=== PATIENT | male | born 1940 | race Caucasian/White ===

== ENCOUNTER → 2017-10-07 | Outpatient (CLI) | payer MEDICARE ==
[2017-10-07 10:33] LABS: INR 1.1 (<1.2); Partial Thromboplastin Time 23.5 sec (22.0-30.0); Prothrombin Time 10.9 sec (9.0-12.0)
== END | disposition home or self-care (01) ==
LOC: LABPAT 09:17
PROVIDERS: ATTEND Orthopaedic Surgery Sports Medicine
DX: Z01.812 Encounter for preprocedural laboratory examination (principal); M17.11 Unilateral primary osteoarthritis, right knee; Z79.01 Long term (current) use of anticoagulants
CPT/HCPCS: 36415; 85610; 85730; 87070

== ENCOUNTER 2018-04-26 09:17 | Emergency (ER) | payer MEDICARE ==
[2018-04-26 09:35] VITALS: BP 163/76; PULSE 55; RESP 16; TEMP 97.9
--- NOTE | 2018-04-26 10:00 | ED ---
General Adult HPI - General Chief complaint: Extremity Injury, Lower Stated complaint: Left Foot Injury Time Seen by Provider: 04/26/18 09:45 Source: patient, RN notes reviewed Mode of arrival: ambulatory Limitations: no limitations - History of Present Illness Initial comments: Patient 77-year-old male presented to the emergency room today with chief complaint of injury to left foot. He does admit that approximately a week ago he was bending some conduit using his foot. He states he noticed some pain afterwards. He states it seemed to improve. States partially for 5 days ago he was doing the same maneuver bending conduit and noticed pain again. He states has not improved over last for 5 days. Patient does not that he feels the pain when he walks on the lateral aspect of left foot. He denies any other injuries or complaints. Patient denies any recent fever, chills, shortness of breath, chest pain, back pain, abdominal pain, nausea or vomiting, numbness or tingling, or any other complaints. - Related Data Home Medications Medication Instructions Recorded Confirmed Thyroid,Pork [[place] Thyroid] 60 mg PO DAILY 12/11/14 10/27/17 amLODIPine [Norvasc] 5 mg PO HS 12/11/14 10/27/17 Cholecalciferol [Vitamin D3] 5,000 unit PO DAILY 02/05/15 10/27/17 Ubidecarenone [Co Q-10] 100 mg PO DAILY 02/05/15 10/27/17 Pitavastatin Calcium [Livalo] 2 mg PO HS 03/02/15 10/27/17 Multivitamin [Men's Multi-Vitamin] 1 tab PO BID 09/06/15 10/27/17 [place]-3 Fatty Acids/Fish Oil [Fish 1 cap PO DAILY 09/19/15 10/27/17 Oil 1,000 mg Softgel] Losartan Potassium [Cozaar] 100 mg PO DAILY 10/28/16 10/27/17 Nitroglycerin Sl Tabs [Nitrostat] 0.4 mg SUBLINGUAL Q5M PRN 10/28/16 10/27/17 Calcium Carbonate [Tums] 500 - 1,000 tab PO DAILY PRN 10/20/17 10/27/17 Isosorbide Mononitrate ER [Imdur] 30 mg PO DAILY 10/20/17 10/27/17 Previous Rx's Medication Instructions Recorded Aspirin 325 mg PO BID #120 tab 10/23/17 Sennosides-Docusate Sodium 1 tab PO BID #60 tablet 10/23/17 [Senokot-S] HYDROcodone/APAP 7.5-325MG [[place] 1 - 2 tab PO Q4-6H PRN #90 tab 10/25/17 7.5-325] Allergies Allergy/AdvReac Type Severity Reaction Status Date / Time No Known Allergies Allergy Verified 04/26/18 09:35 Review of Systems ROS Statement: Those systems with pertinent positive or pertinent negative responses have been documented in the HPI. ROS Other: All systems not noted in ROS Statement are negative. Past Medical History Past Medical History: Coronary Artery Disease (CAD), GERD/Reflux, Hyperlipidemia , Hypertension, Osteoarthritis (OA), Sleep Apnea/CPAP/BIPAP, Thyroid Disorder Additional Past Medical History / Comment(s): NO TX FOR SLEEP APNEA. OCC GERD R /T DIET; HX DIVERTICULITIS X1. shingles History of Any Multi-Drug Resistant Organisms: None Reported Past Surgical History: Appendectomy, Heart Catheterization With Stent, Orthopedic Surgery, Tonsillectomy Additional Past Surgical History / Comment(s): 09-14-15 total lt knee replacment. ACCORDING TO PATIENT, AFTER HIS LAST KNEE SURGERY, HE DID NOT FEEL WELL AFTER, WITHIN A WEEK OR TWO, HIS APPENDIX HAD RUPTURED AND HAD AN APPENDECTOMY (HAD COMPLICATIONS WITH VERY HIGH BLOOD PRESSURE DURING THIS ILLNESS. HEART CATH X2, STENT X1 EACH. RONY CTR, RONY CUBITAL TUNNEL RELEASE ELBOWS. RT KNEE SCOPE 2011. LT KNEE ARTHROSCOPIC 12/2014. RT ROTATOR CUFF 08/2014. Past Anesthesia/Blood Transfusion Reactions: No Reported Reaction, Motion Sickness Date of Last Stent Placement:: 2004 EST Past Psychological History: No Psychological Hx Reported Smoking Status: Former smoker Past Alcohol Use History: Rare Past Drug Use History: None Reported - Past Family History Mother Family Medical History: Coronary Artery Disease (CAD), Hyperlipidemia Additional Family Medical History / Comment(s): stents Father Family Medical History: Liver Disease Additional Family Medical History / Comment(s): etoh abuse General Exam - General Exam Comments Initial Comments: General: The patient is awake and alert, in no distress, and does not appear acutely ill. Neck: The neck is supple, there is no tenderness or JVD. Musculoskeletal: Patient has normal appearance of left foot no obvious deformity. Shows good range of motion. Mild tenderness in the ATFL area. No specific bony tenderness on exam. Sensations intact. Pedal pulses 2+. Neurological: A&O x 3. CN II-XII intact, There are no obvious motor or sensory deficits. Coordination appears grossly intact. Speech is normal. Skin: Skin is warm and dry and no rashes or lesions are noted. Psychiatric: Normal mood and affect. Limitations: no limitations Course Vital Signs 04/26/18 09:30 Temperature 97.9 F Pulse Rate 55 L Respiratory 16 Rate Blood Pressure 163/76 O2 Sat by Pulse 99 Oximetry Medical Decision Making - Medical Decision Making Patient's x-rays reviewed are negative for any acute fracture dislocation. Results were discussed with patient. Patient advised sprain at this time. Advised to ice elevate the affected area. Otherwise use Francesco wrap on up and moving around. Advised follow-up orthopedics over the next 2-5 days if symptoms are not improving for further evaluation. Disposition Clinical Impression: Ankle sprain Disposition: HOME SELF-CARE Instructions: Ankle Sprain (ED) Additional Instructions: Please use Francesco wrap when up and moving around as discussed. Please follow-up with orthopedic/family doctor in the next 2-5 days of symptoms have not improved. Please return to emergency room if the symptoms increase or worsen or for any other concerns. Is patient prescribed a controlled substance at d/c from ED?: No Referrals: Delonte Corbin MD [Primary Care Provider] - 1-2 days Time of Disposition: 10:47
--- NOTE | 2018-04-26 10:13 | XR ---
PROCEDURE: XR foot complete LT 3 views DATE AND TIME: 04/26/2018 10:07 AM REFERRING PHYSICIAN: Mc Vásquez CLINICAL INDICATION: PHH, Pain TECHNIQUE: Department protocol. COMPARISON: None FINDINGS: There is no fracture or malalignment. Scattered multifocal osteoarthritis changes are appreciated. The soft tissues are unremarkable for acute findings, although prominent atherosclerotic calcificatio ns are noted. IMPRESSION: NO ACUTE PROCESS.
--- NOTE | 2018-04-26 10:14 | XR ---
PROCEDURE: XR ankle complete LT 3 views DATE AND TIME: 04/26/2018 10:07 AM REFERRING PHYSICIAN: Mc Vásquez CLINICAL INDICATION: PHH, Pain TECHNIQUE: Department protocol. COMPARISON: None FINDINGS: There is no fracture or malalignment. The mortise is intact. Multifocal osteoarthritis changes are appreciated. The soft tissues are unremarkable, other than atherosclerotic calcifications. IMPRESSION: NO ACUTE PROCESS.
== END 2018-04-26 10:53 | disposition home or self-care (01) ==
LOC: EC 09:17
DX: S93.402A Sprain of unspecified ligament of left ankle, initial encounter (principal); E78.5 Hyperlipidemia, unspecified; I10 Essential (primary) hypertension; I25.10 Atherosclerotic heart disease of native coronary artery without angina pectoris; E07.9 Disorder of thyroid, unspecified; Z87.891 Personal history of nicotine dependence; Z79.899 Other long term (current) drug therapy; X50.1XXA Overexertion from prolonged static or awkward postures, initial encounter; Y93.89 Activity, other specified
CPT/HCPCS: 99283

== ENCOUNTER → 2018-09-10 | Outpatient (CLI) | payer MEDICARE ==
[2018-09-10 08:40] LABS: Basophils % (A) 1 %; Eosinophils # (A) 0.1 k/uL (0-0.7); Eosinophils % (A) 1 %; HCT 47.3 % (39.0-53.0); HGB 15.3 gm/dL (13.0-17.5); Lymphocytes # (A) 2.1 k/uL (1.0-4.8); Lymphocytes % (A) 34 %; MCH 30.2 pg (25.0-35.0); MCHC 32.3 g/dL (31.0-37.0); MCV 93.5 fL (80.0-100.0); Mean Platelet Volume 7.9; Monocytes # (A) 0.4 k/uL (0-1.0); Monocytes % (A) 6 %; Neutrophils # (A) 3.5 k/uL (1.3-7.7); Neutrophils % (A) 57 %; Platelet Count 178 k/uL (150-450); RBC 5.06 m/uL (4.30-5.90); RDW 12.8 % (11.5-15.5); WBC 6.2 k/uL (3.8-10.6)
[2018-09-10 15:57] LABS: LDL Cholesterol,Calculated 66.4 mg/dL (0.0-131.0); VLDL Calculation 10.6 mg/dL (5.00-40.00)
[2018-09-10 15:58] LABS: Albumin 4.6 g/dL (3.80-4.90); Albumin/Globulin Ratio 2.19 (1.20-2.10); Anion Gap 8.8 mmol/L (4.00-12.00); Calcium 9.2 mg/dL (8.7-10.3); Carbon Dioxide 23.2 mmol/L (21.6-31.8); Globulin 2.1 g/dL (2.1-3.7); Potassium 4.7 mmol/L (3.5-5.5); Total Bilirubin 0.4 mg/dL (0.2-1.2); Total Protein 6.7 g/dL (6.2-8.2)
[2018-09-10 16:05] LABS: Prostate Specific Antigen 1.1 ng/mL (0.0-6.5)
[2018-09-10 16:12] LABS: T4, Free (Free Thyroxine) 0.9 ng/dL (0.80-1.80)
== END | disposition home or self-care (01) ==
LOC: LABWHC1 07:06
PROVIDERS: ATTEND Internal Medicine Cardiovascular Disease
DX: I25.10 Atherosclerotic heart disease of native coronary artery without angina pectoris (principal); N40.0 Benign prostatic hyperplasia without lower urinary tract symptoms
CPT/HCPCS: 36415; 80053; 80061; 82550; 84153; 84439; 84443; 85025

== ENCOUNTER → 2018-12-09 | Outpatient (CLI) | payer MEDICARE ==
[2018-12-09 17:05] LABS: Albumin 4.4 g/dL (3.80-4.90); Albumin/Globulin Ratio 2.32 (1.20-2.10); Anion Gap 9.6 mmol/L (4.00-12.00); Calcium 8.8 mg/dL (8.7-10.3); Carbon Dioxide 24.4 mmol/L (21.6-31.8); Globulin 1.9 g/dL (1.6-3.3); Potassium 4.5 mmol/L (3.5-5.5); Total Bilirubin 0.6 mg/dL (0.3-1.2); Total Protein 6.3 g/dL (6.2-8.2)
== END ==
LOC: LABWHC1 07:47
PROVIDERS: ATTEND Internal Medicine Endocrinology, Diabetes & Metabolism
DX: E03.8 Other specified hypothyroidism (principal); R23.2 Flushing; R53.83 Other fatigue
CPT/HCPCS: 36415; 80053; 82024; 82533; 83002; 84403; 84443

== ENCOUNTER → 2019-03-12 | Outpatient (CLI) | payer MEDICARE ==
[2019-03-12 08:51] LABS: Basophils % (A) 1 %; Eosinophils # (A) 0.1 k/uL (0-0.7); Eosinophils % (A) 2 %; HCT 46.3 % (39.0-53.0); Lymphocytes # (A) 2.3 k/uL (1.0-4.8); Lymphocytes % (A) 44 %; MCH 29.4 pg (25.0-35.0); MCHC 32.5 g/dL (31.0-37.0); MCV 90.5 fL (80.0-100.0); Mean Platelet Volume 8.8; Monocytes # (A) 0.3 k/uL (0-1.0); Monocytes % (A) 6 %; Neutrophils # (A) 2.3 k/uL (1.3-7.7); Neutrophils % (A) 46 %; Platelet Count 193 k/uL (150-450); RBC 5.11 m/uL (4.30-5.90); RDW 13.5 % (11.5-15.5); WBC 5.1 k/uL (3.8-10.6)
[2019-03-12 17:42] LABS: Albumin 4.4 g/dL (3.80-4.90); Albumin/Globulin Ratio 2.44 (1.60-3.17); Anion Gap 8.2 mmol/L (4.00-12.00); Calcium 9.2 mg/dL (8.7-10.3); Carbon Dioxide 25.8 mmol/L (21.6-31.8); Globulin 1.8 g/dL (1.6-3.3); LDL Cholesterol,Calculated 60.6 mg/dL (0.0-131.0); Potassium 4.3 mmol/L (3.5-5.5); Total Bilirubin 0.5 mg/dL (0.2-1.2); Total Protein 6.2 g/dL (6.2-8.2); VLDL Calculation 10.4 mg/dL (5.00-40.00)
== END ==
LOC: LABWHC1 08:29
PROVIDERS: ATTEND Internal Medicine Endocrinology, Diabetes & Metabolism
DX: E03.8 Other specified hypothyroidism (principal); I25.10 Atherosclerotic heart disease of native coronary artery without angina pectoris
CPT/HCPCS: 36415; 80053; 80061; 84443; 85025

== ENCOUNTER 2019-03-22 06:57 | Day surgery (SDC) | payer MEDICARE ==
[2019-03-18 10:53] VITALS: BMI 24.9
[~2019-03-22 06:57] MED LIST: DEXAMETHASONE SOD PHOSPHATE 10 MG/ML 1 ML VIAL IV ONE; HEPARIN SODIUM,PORCINE 5,000 UNIT/ML 1 ML VIAL SQ ONE; LACTATED RINGERS 1,000 ML IV SCH; LIDOCAINE 1% 20 ML VIAL (10MG/ML) FOR IV START INTRADERMA PRN; MIDAZOLAM 2 MG/2 ML VIAL IV PRN; ONDANSETRON 4 MG/2 ML VIAL IVP ONE; Pre Op ABX Message 1 EACH MISC MISCELLANE ONE; fentaNYL (PF) 50 MCG/ML 2 ML AMP IV PRN
[2019-03-22 07:26] VITALS: RESP 16; TEMP 97.8
[2019-03-22] MEDS ORDERED: PROPOFOL 10 MG/ML 20 ML VIAL IV ONE (07:51)
[2019-03-22] MEDS ORDERED: KETAMINE 10 MG/ML 20 ML VIAL ONE (07:51)
[2019-03-22] MEDS ORDERED: MIDAZOLAM 2 MG/2 ML VIAL ONE (07:51)
--- NOTE | 2019-03-22 08:03 | P.GSHP ---
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 Patient underwent biopsy at Dr. Deleon's office. Patient presents today for wide local excision. Past Medical History Past Medical History: Coronary Artery Disease (CAD), Cancer, GERD/Reflux, Hyperlipidemia, Hypertension, Liver Disease, Osteoarthritis (OA), Sleep Apnea/CPAP/BIPAP, Thyroid Disorder Additional Past Medical History / Comment(s): NO TX FOR SLEEP APNEA. OCC GERD R/T DIET; HX DIVERTICULITIS X1. shingles, melanoma, hemorrhoids, hepatitis unknown type after [place]fist [place] History of Any Multi-Drug Resistant Organisms: None Reported Past Surgical History: Appendectomy, Heart Catheterization With Stent, Joint Replacement, Orthopedic Surgery, Tonsillectomy Additional Past Surgical History / Comment(s): total rony knee replacment. ACCORDING TO PATIENT, AFTER HIS LAST KNEE SURGERY, HE DID NOT FEEL WELL AFTER, WITHIN A WEEK OR TWO, HIS APPENDIX HAD RUPTURED AND HAD AN APPENDECTOMY (HAD COMPLICATIONS WITH VERY HIGH BLOOD PRESSURE DURING THIS ILLNESS. HEART CATH X2, STENT X1 EACH. RONY CTR, RONY CUBITAL TUNNEL RELEASE ELBOWS. RT KNEE SCOPE 2011. LT KNEE ARTHROSCOPIC 12/2014. RT ROTATOR CUFF 09/26/2014, trigger finger release-lt, hemorroid surgery x2, rony cataract surgery Past Anesthesia/Blood Transfusion Reactions: No Reported Reaction, Motion Sickness Date of Last Stent Placement:: 2004 EST Smoking Status: Former smoker - Past Family History Mother Family Medical History: Coronary Artery Disease (CAD), Hyperlipidemia Additional Family Medical History / Comment(s): heart stents, quadruple bypass,rony dry macular degeneration Father Family Medical History: Liver Disease Additional Family Medical History / Comment(s): etoh abuse Medications and Allergies Home Medications Medication Instructions Recorded Confirmed Type Thyroid,Pork [[place] Thyroid] 75 mg PO DAILY 12/11/14 03/22/19 History amLODIPine [Norvasc] 5 mg PO HS 12/11/14 03/22/19 History Cholecalciferol [Vitamin D3 (25 5,000 unit PO DAILY 02/05/15 03/22/19 History Mcg = 1000 Iu)] Ubidecarenone [Co Q-10] 100 mg PO DAILY 02/05/15 03/22/19 History [place]-3 Fatty Acids/Fish Oil [Fish 1 cap PO DAILY 09/19/15 03/22/19 History Oil 1,000 mg Softgel] Losartan Potassium [Cozaar] 100 mg PO DAILY 10/28/16 03/22/19 History Nitroglycerin Sl Tabs [Nitrostat] 0.4 mg SUBLINGUAL Q5M PRN 10/28/16 03/22/19 History Calcium Carbonate [Tums] 500 - 1,000 tab PO DAILY PRN 10/20/17 03/22/19 History Isosorbide Mononitrate ER [Imdur] 30 mg PO DAILY 10/20/17 03/22/19 History Aspirin [Adult Low Dose Aspirin EC] 81 mg PO DAILY 03/18/19 03/22/19 History Metabolic Synergy 1 tab PO DAILY 03/18/19 03/22/19 History Allergies Allergy/AdvReac Type Severity Reaction Status Date / Time No Known Allergies Allergy Verified 03/18/19 10:25 Surgical - Exam Vital Signs Temp Pulse Resp BP Pulse Ox 97.8 F 61 16 202/99 97 03/22/19 07:20 03/22/19 07:20 03/22/19 07:20 03/22/19 07:20 03/22/19 07:20 - General well developed, well nourished, no distress - Eyes PERRL - ENT normal pinna - Neck no masses - Respiratory normal expansion - Cardiovascular Rhythm: regular - Integumentary 5 mm erythematous skin lesion on the right upper back just to the right of midline. Assessment and Plan Assessment: Melanoma. Patient will undergo wide local excision. Patient did not wish to explore the possibility of sentinel node biopsy.
[2019-03-22] MEDS ORDERED: SODIUM CHLORIDE 0.9% 50 ML with ceFAZolin 2,000 MG IV ONE ×2 (08:13)
[2019-03-22] MEDS ORDERED: BUPIVACAINE-EPI 0.5%-1:200,000 10 ML VIAL SQ ONE ×2 (08:14)
--- NOTE | 2019-03-22 08:36 | P.OP ---
Date of Procedure: 03/22/19 Preoperative Diagnosis: Melanoma of back Postoperative Diagnosis: Melanoma back Procedure(s) Performed: Wide local excision of melanoma back Anesthesia: MAC Surgeon: Kavon Saavedra Estimated Blood Loss (ml): 5 Pathology: other (Melanoma) Condition: stable Disposition: PACU Description of Procedure: The patient's placed on the operative table in the lateral position. He received IV sedation. The melanoma biopsy site was prepped and draped usual sterile fashion. The skin was localized 1% local Xylocaine. The patient received IV sedation. A wide local excision around the melanoma site was performed. Using a 15 blade the wide local vertical skin incision was made. Then using with cautery the subcutaneous tissues were divided. The specimen was marked with a suture tag placed on the superior corner of the elliptical incision. The posterior hemostasis. The wound was closed in 2 layers using 0 Vicryl and 3-0 Monocryl suture. Dermabond dressings was applied. Patient top she will was sent to recovery in stable condition.
[2019-03-22 08:38] VITALS: BP 133/66; PULSE 60
== END 2019-03-22 09:24 | disposition home or self-care (01) ==
LOC: OR 06:57
PROVIDERS: ATTEND Surgery
DX: C43.59 Malignant melanoma of other part of trunk (principal); E07.9 Disorder of thyroid, unspecified; E78.5 Hyperlipidemia, unspecified; I10 Essential (primary) hypertension; I25.10 Atherosclerotic heart disease of native coronary artery without angina pectoris; K21.9 Gastro-esophageal reflux disease without esophagitis; M19.90 Unspecified osteoarthritis, unspecified site; Z79.82 Long term (current) use of aspirin; Z79.899 Other long term (current) drug therapy; Z82.49 Family history of ischemic heart disease and other diseases of the circulatory system; Z87.891 Personal history of nicotine dependence; G47.30 Sleep apnea, unspecified; Z99.89 Dependence on other enabling machines and devices; Z95.5 Presence of coronary angioplasty implant and graft; Z96.653 Presence of artificial knee joint, bilateral
CPT/HCPCS: 88305; 11604; 12032; J2250; J1644; J1100; J2405; J0690; J2704

== ENCOUNTER → 2019-05-07 | Outpatient (CLI) | payer MEDICARE | END | disposition home or self-care (01) | LOC: LABWHC1 08:14 | PROVIDERS: ATTEND Internal Medicine Endocrinology, Diabetes & Metabolism | DX: E03.8 Other specified hypothyroidism (principal) | CPT/HCPCS: 36415; 84443 ==

== ENCOUNTER → 2019-08-02 | Outpatient (CLI) | payer MEDICARE | END | disposition home or self-care (01) | LOC: LABWHC1 15:23 | PROVIDERS: ATTEND Internal Medicine Endocrinology, Diabetes & Metabolism | DX: E03.8 Other specified hypothyroidism (principal) | CPT/HCPCS: 36415; 84443 ==

== ENCOUNTER → 2019-09-15 | Outpatient (CLI) | payer MEDICARE ==
[2019-09-15 11:17] LABS: Basophils % (A) 1 %; Eosinophils % (A) 1 %; HCT 45.6 % (39.0-53.0); HGB 14.8 gm/dL (13.0-17.5); Lymphocytes # (A) 1.5 k/uL (1.0-4.8); Lymphocytes % (A) 26 %; MCH 30.1 pg (25.0-35.0); MCHC 32.5 g/dL (31.0-37.0); MCV 92.8 fL (80.0-100.0); Monocytes # (A) 0.4 k/uL (0-1.0); Monocytes % (A) 7 %; Neutrophils # (A) 3.5 k/uL (1.3-7.7); Neutrophils % (A) 63 %; Platelet Count 207 k/uL (150-450); RBC 4.92 m/uL (4.30-5.90); RDW 12.7 % (11.5-15.5); WBC 5.5 k/uL (3.8-10.6)
[2019-09-15 16:10] LABS: African American GFR (CKD) 99.9 (60.0-200.0); Albumin 4.5 g/dL (3.80-4.90); Albumin/Globulin Ratio 2.37 (1.60-3.17); Anion Gap 5.7 mmol/L (4.00-12.00); BUN/Creat Ratio 28.75 Ratio (12.00-20.00); Calcium 9.1 mg/dL (8.7-10.3); Carbon Dioxide 25.3 mmol/L (21.6-31.8); Chol/HDL Ratio 2.06; Globulin 1.9 g/dL (1.6-3.3); Potassium 4.5 mmol/L (3.5-5.5); Total Bilirubin 0.5 mg/dL (0.3-1.2); Total Protein 6.4 g/dL (6.2-8.2)
== END | disposition home or self-care (01) ==
LOC: LABWHC1 09:58
PROVIDERS: ATTEND Internal Medicine Cardiovascular Disease
DX: E78.5 Hyperlipidemia, unspecified (principal); Z12.5 Encounter for screening for malignant neoplasm of prostate
CPT/HCPCS: 80061; 80053; 84443; 85025; 36415; G0103

== ENCOUNTER → 2019-11-24 | Outpatient (CLI) | payer MEDICARE | END | disposition home or self-care (01) | LOC: LABWHC1 07:08 | PROVIDERS: ATTEND Internal Medicine Endocrinology, Diabetes & Metabolism | DX: E03.8 Other specified hypothyroidism (principal) | CPT/HCPCS: 36415; 84443 ==

== ENCOUNTER 2019-11-30 10:46 | Observation (INO) | payer MEDICARE ==
[2019-11-30] MEDS ORDERED: ASPIRIN 81 MG PO STA (11:20)
[2019-11-30] MEDS ORDERED: NITROGLYCERIN OINT 1 INCH/GM PACKET TOPICAL STA (11:20)
--- NOTE | 2019-11-30 11:29 | ED ---
General Adult HPI - General Chief complaint: Chest Pain Stated complaint: Syncope/chest pain Time Seen by Provider: 11/30/19 11:06 Source: patient, RN notes reviewed, old records reviewed Mode of arrival: wheelchair Limitations: no limitations - History of Present Illness Initial comments: 79-year-old male who presents emergency Department with a past medical history significant for high blood pressure and high cholesterol. Patient also states he had a couple stents placed about 1520 years ago. Patient comes in today because he has been experiencing some chest pain over the last month that typically comes and feels like discomfort in her chest and then dissipates. Patient states today at 5:00 he had significant discomfort and he took a nitrog lycerin. Patient states it occurred twice more during the day and he took 2 more nitroglycerin. Patient states the last nitro glycerin took he walked out to his truck felt lightheaded and according to his coworker he passed out for a few seconds. Patient denies any chest pain. Patient denies radiation of the pain. Patient denies any nausea. Patient states currently he has still some discomfort but it's much less. Patient denies any shortness of breath currently. Patient denies any recent fever chills or cough per patient states went to lift calf tenderness. Patient denies any lightheadedness currently. Patient denies any headache patient denies numbness weakness. - Related Data Home Medications Medication Instructions Recorded Confirmed amLODIPine [Norvasc] 5 mg PO HS 12/11/14 11/30/19 Cholecalciferol [Vitamin D3 (25 5,000 unit PO DAILY 02/05/15 11/30/19 Mcg = 1000 Iu)] Ubidecarenone [Co Q-10] 100 mg PO DAILY 02/05/15 11/30/19 [place]-3 Fatty Acids/Fish Oil [Fish 1 cap PO DAILY 09/19/15 11/30/19 Oil 1,000 mg Softgel] Losartan Potassium [Cozaar] 100 mg PO DAILY 10/28/16 11/30/19 Nitroglycerin Sl Tabs [Nitrostat] 0.4 mg SUBLINGUAL Q5M PRN 10/28/16 11/30/19 Calcium Carbonate [Tums] 500 - 1,000 tab PO DAILY PRN 10/20/17 11/30/19 Isosorbide Mononitrate ER [Imdur] 30 mg PO DAILY 10/20/17 11/30/19 Aspirin [Adult Low Dose Aspirin EC] 81 mg PO BID 03/18/19 11/30/19 Metabolic Synergy 1 tab PO DAILY 03/18/19 11/30/19 Levothyroxine Sodium [Synthroid] 112 mcg PO DAILY 11/30/19 11/30/19 Pitavastatin Calcium [Livalo] 4 mg PO HS 11/30/19 11/30/19 Allergies Allergy/AdvReac Type Severity Reaction Status Date / Time No Known Allergies Allergy Verified 11/30/19 12:23 Review of Systems ROS Statement: Those systems with pertinent positive or pertinent negative responses have been documented in the HPI. ROS Other: All systems not noted in ROS Statement are negative. Past Medical History Past Medical History: Coronary Artery Disease (CAD), Chest Pain / Angina, GERD/Reflux, Hyperlipidemia, Hypertension, Osteoarthritis (OA), Sleep Apnea/CPAP/BIPAP, Thyroid Disorder Additional Past Medical History / Comment(s): NO TX FOR SLEEP APNEA. OCC GERD R/T DIET; HX DIVERTICULITIS X1. shingles History of Any Multi-Drug Resistant Organisms: None Reported Past Surgical History: Appendectomy, Heart Catheterization With Stent, Orthopedic Surgery, Tonsillectomy Additional Past Surgical History / Comment(s): 09-14-15 total lt knee replacment. ACCORDING TO PATIENT, AFTER HIS LAST KNEE SURGERY, HE DID NOT FEEL WELL AFTER, WITHIN A WEEK OR TWO, HIS APPENDIX HAD RUPTURED AND HAD AN APPENDECTOMY (HAD COMPLICATIONS WITH VERY HIGH BLOOD PRESSURE DURING THIS ILLNESS. HEART CATH X2, STENT X1 EACH. RONY CTR, RONY CUBITAL TUNNEL RELEASE ELBOWS. RT KNEE SCOPE 2011. LT KNEE ARTHROSCOPIC 12/2014. RT ROTATOR CUFF 09/26/2014. Past Anesthesia/Blood Transfusion Reactions: No Reported Reaction, Motion Sickness Date of Last Stent Placement:: 2004 EST Past Psychological History: No Psychological Hx Reported Smoking Status: Former smoker Past Alcohol Use History: None Reported Past Drug Use History: None Reported - Past Family History Mother Family Medical History: Coronary Artery Disease (CAD), Hyperlipidemia Additional Family Medical History / Comment(s): heart stents, quadruple bypass,rony dry macular degeneration Father Family Medical History: Liver Disease Additional Family Medical History / Comment(s): etoh abuse General Exam - General Exam Comments Initial Comments: GENERAL: Patient is well-developed and well-nourished. Patient is nontoxic and well- hydrated and is in mild distress. ENT: Neck is soft and supple. No significant lymphadenopathy is noted. Oropharynx is clear. Moist mucous membranes. Neck has full range of motion without eliciting any pain. EYES: The sclera were anicteric and conjunctiva were pink and moist. Extraocular movements were intact and pupils were equal round and reactive to light. Eyelids were unremarkable. PULMONARY: Unlabored respirations. Good breath sounds bilaterally. No audible rales rhonchi or wheezing was noted. CARDIOVASCULAR: There is a regular rate and rhythm without any murmurs gallops or rubs. ABDOMEN: Soft and nontender with normal bowel sounds. SKIN: Skin is clear with no lesions or rashes and otherwise unremarkable. NEUROLOGIC: Patient is alert and oriented x3. Cranial nerves II through XII are grossly intact. Motor and sensory are also intact. Normal speech, volume and content. Symmetrical smile. MUSCULOSKELETAL: Normal extremities with adequate strength and full range of motion. No lower extremity swelling or edema. No calf tenderness. LYMPHATICS: No significant lymphadenopathy is noted PSYCHIATRIC: Normal psychiatric evaluation. Limitations: no limitations Course Vital Signs 11/30/19 11/30/19 11/30/19 10:49 11:30 12:00 Temperature 97.6 F Pulse Rate 53 L 52 L 53 L Respiratory 18 12 10 L Rate Blood Pressure 163/75 159/77 139/84 O2 Sat by Pulse 99 99 97 Oximetry Medical Decision Making - Medical Decision Making EKG shows sinus bradycardia 56 bpm MN interval 220 QRS is 84 Q-T intervals 440 QTC is 424. Patient's EKG shows no ST segment elevation or depression or T wave abnormalities are noted. Chest x-ray showed no acute abnormality. I started the patient heparin because he unstable angina. I spoke with Dr. Corbin he agreed to admit the patient admitted the patient I consult cardiology. I continued heparin Nitropaste before. - Lab Data Result diagrams: 11/30/19 11:29 11/30/19 11:29 Lab Results 11/30/19 11/30/19 11/30/19 Range/Units 11:29 11:29 11:29 WBC 8.0 (3.8-10.6) k/uL RBC 4.84 (4.30-5.90) m/uL Hgb 14.4 (13.0-17.5) gm/dL Hct 44.4 (39.0-53.0) % MCV 91.8 (80.0-100.0) fL MCH 29.8 (25.0-35.0) pg MCHC 32.5 (31.0-37.0) g/dL RDW 12.4 (11.5-15.5) % Plt Count 163 (150-450) k/uL Neutrophils % 76 % Lymphocytes % 16 % Monocytes % 5 % Eosinophils % 1 % Basophils % 1 % Neutrophils # 6.1 (1.3-7.7) k/uL Lymphocytes # 1.3 (1.0-4.8) k/uL Monocytes # 0.4 (0-1.0) k/uL Eosinophils # 0.1 (0-0.7) k/uL Basophils # 0.1 (0-0.2) k/uL PT 10.6 (9.0-12.0) sec INR 1.0 (<1.2) APTT 20.2 L (22.0-30.0) sec Sodium 138 (137-145) mmol/L Potassium 4.1 (3.5-5.1) mmol/L Chloride 107 (98-107) mmol/L Carbon Dioxide 24 (22-30) mmol/L Anion Gap 7 mmol/L BUN 24 H (9-20) mg/dL Creatinine 0.89 (0.66-1.25) mg/dL Est GFR (CKD-EPI)AfAm >90 (>60 ml/min/1.73 sqM) Est GFR (CKD-EPI)NonAf 83 (>60 ml/min/1.73 sqM) Glucose 110 H (74-99) mg/dL Calcium 9.2 (8.4-10.2) mg/dL Total Bilirubin 0.5 (0.2-1.3) mg/dL AST 33 (17-59) U/L ALT 27 (4-49) U/L Alkaline Phosphatase 67 (38-126) U/L Troponin I (0.000-0.034) ng/mL Total Protein 7.2 (6.3-8.2) g/dL Albumin 4.4 (3.5-5.0) g/dL 11/30/19 Range/Units 11:29 WBC (3.8-10.6) k/uL RBC (4.30-5.90) m/uL Hgb (13.0-17.5) gm/dL Hct (39.0-53.0) % MCV (80.0-100.0) fL MCH (25.0-35.0) pg MCHC (31.0-37.0) g/dL RDW (11.5-15.5) % Plt Count (150-450) k/uL Neutrophils % % Lymphocytes % % Monocytes % % Eosinophils % % Basophils % % Neutrophils # (1.3-7.7) k/uL Lymphocytes # (1.0-4.8) k/uL Monocytes # (0-1.0) k/uL Eosinophils # (0-0.7) k/uL Basophils # (0-0.2) k/uL PT (9.0-12.0) sec INR (<1.2) APTT (22.0-30.0) sec Sodium (137-145) mmol/L Potassium (3.5-5.1) mmol/L Chloride (98-107) mmol/L Carbon Dioxide (22-30) mmol/L Anion Gap mmol/L BUN (9-20) mg/dL Creatinine (0.66-1.25) mg/dL Est GFR (CKD-EPI)AfAm (>60 ml/min/1.73 sqM) Est GFR (CKD-EPI)NonAf (>60 ml/min/1.73 sqM) Glucose (74-99) mg/dL Calcium (8.4-10.2) mg/dL Total Bilirubin (0.2-1.3) mg/dL AST (17-59) U/L ALT (4-49) U/L Alkaline Phosphatase (38-126) U/L Troponin I <0.012 (0.000-0.034) ng/mL Total Protein (6.3-8.2) g/dL Albumin (3.5-5.0) g/dL Critical Care Time Critical Care Time: Yes Total Critical Care Time: 35 Disposition Clinical Impression: Unstable angina pectoris Disposition: ADMITTED IP TO THIS [facility] Is patient prescribed a controlled substance at d/c from ED?: No Referrals: Delonte Corbin MD [Primary Care Provider] - 1-2 days Time of Disposition: 13:31
[2019-11-30 11:46] LABS: Basophils # (A) 0.1 k/uL (0-0.2); Basophils % (A) 1 %; Eosinophils # (A) 0.1 k/uL (0-0.7); Eosinophils % (A) 1 %; HCT 44.4 % (39.0-53.0); HGB 14.4 gm/dL (13.0-17.5); Lymphocytes # (A) 1.3 k/uL (1.0-4.8); Lymphocytes % (A) 16 %; MCH 29.8 pg (25.0-35.0); MCHC 32.5 g/dL (31.0-37.0); MCV 91.8 fL (80.0-100.0); Mean Platelet Volume 9.7; Monocytes # (A) 0.4 k/uL (0-1.0); Monocytes % (A) 5 %; Neutrophils # (A) 6.1 k/uL (1.3-7.7); Neutrophils % (A) 76 %; Platelet Count 163 k/uL (150-450); RBC 4.84 m/uL (4.30-5.90); RDW 12.4 % (11.5-15.5)
[2019-11-30 11:50] LABS: ALT 27 U/L (4-49); AST 33 U/L (17-59); African American GFR (CKD) >90 (>60 ml/min/1.73 sqM); Albumin 4.4 g/dL (3.5-5.0); Alkaline Phosphatase 67 U/L (38-126); Anion Gap 7 mmol/L; Blood Urea Nitrogen 24 mg/dL (9-20); Calcium 9.2 mg/dL (8.4-10.2); Carbon Dioxide 24 mmol/L (22-30); Chloride 107 mmol/L (98-107); Glucose 110 mg/dL (74-99); Non-African American GFR(CKD) 83 (>60 ml/min/1.73 sqM); Potassium 4.1 mmol/L (3.5-5.1); Sodium 138 mmol/L (137-145); Total Bilirubin 0.5 mg/dL (0.2-1.3); Total Protein 7.2 g/dL (6.3-8.2)
--- NOTE | 2019-11-30 12:00 | XR ---
EXAMINATION TYPE: XR chest 2V DATE OF EXAM: 11/30/2019 COMPARISON: 10/27/2017 HISTORY: Difficulty breathing and chest pain TECHNIQUE: Frontal and lateral views of the chest are obtained. FINDINGS: There is no focal air space opacity, pleural effusion, or pneumothorax seen. Some flatten ing of the diaphragms on the lateral view. Correlate for underlying COPD. The cardiac silhouette size is within normal limits. The osseous structures are intact. Moderate multilevel degenerative marcum e of the spine. Arthropathy of the right shoulder is present. IMPRESSION: No acute cardiopulmonary process. Some flattening of diaphragms on the lateral view can be seen in underlying COPD.
[2019-11-30 12:07] LABS: Prothrombin Time 10.6 sec (9.0-12.0)
[2019-11-30 12:10] LABS: Partial Thromboplastin Time 20.2 sec (22.0-30.0)
[2019-11-30] MEDS ORDERED: HEPARIN SODIUM,PORCINE 5,000 UNIT/ML 1 ML VIAL IV ONE (13:09)
[2019-11-30] MEDS ORDERED: HEPARIN SOD,PORK IN 0.45% NACL 25,000 UNIT in 0.45% NACL 1 250ML.BAG IV SCH (13:15)
[2019-11-30] MEDS ORDERED: NITROGLYCERIN SL TABS 0.4 MG TAB SUBLINGUAL PRN (13:31)
[2019-11-30] MEDS ORDERED: CALCIUM CARBONATE 500 MG CHEWABLE PO PRN (16:54)
[2019-11-30] MEDS ORDERED: ACETAMINOPHEN TAB 325 MG TAB PO PRN (17:03)
--- NOTE | 2019-11-30 17:25 | P.HPIM ---
History of Present Illness 79-year-old male is intermittent chest pain for 1 month worse today. Patient had syncopal episode after using nitroglycerin. Patient does have history of coronary disease with stent sees Dr. Smiley 8 and sink or shortness. Patient also has history of hypertension and hyperlipidemia. Patient states he's been under a lot of family stress for 6 months Review of Systems Cardiovascular: Reports chest pain Neurological: Reports syncope Past Medical History Past Medical History: Coronary Artery Disease (CAD), Chest Pain / Angina, GERD/Reflux, Hyperlipidemia, Hypertension, Osteoarthritis (OA), Sleep Apnea/CPAP/BIPAP, Thyroid Disorder Additional Past Medical History / Comment(s): NO TX FOR SLEEP APNEA. OCC GERD R/T DIET; HX DIVERTICULITIS X1. shingles, hypothyroid History of Any Multi-Drug Resistant Organisms: None Reported Past Surgical History: Appendectomy, Heart Catheterization With Stent, Orthopedic Surgery, Tonsillectomy Additional Past Surgical History / Comment(s): 09-14-15 total lt knee replacment. ACCORDING TO PATIENT, AFTER HIS LAST KNEE SURGERY, HE DID NOT FEEL WELL AFTER, WITHIN A WEEK OR TWO, HIS APPENDIX HAD RUPTURED AND HAD AN APPENDECTOMY (HAD COMPLICATIONS WITH VERY HIGH BLOOD PRESSURE DURING THIS ILLNESS. HEART CATH X2, STENT X1 EACH. RONY CTR, RONY CUBITAL TUNNEL RELEASE ELBOWS. RT KNEE SCOPE 2011. LT KNEE ARTHROSCOPIC 12/2014. RT ROTATOR CUFF 09/26/2014. carpel tunnel bilat and trigger finger sx Past Anesthesia/Blood Transfusion Reactions: Motion Sickness Date of Last Stent Placement:: 2004 EST Past Psychological History: No Psychological Hx Reported Smoking Status: Former smoker Past Alcohol Use History: None Reported Additional Past Alcohol Use History / Comment(s): SMOKED AGE 18 ( 1958) TILL AGE 28( 1967)1/2 TO 1 PPD. Past Drug Use History: None Reported - Past Family History Mother Family Medical History: Coronary Artery Disease (CAD), Hyperlipidemia Additional Family Medical History / Comment(s): heart stents, quadruple bypass,rony dry macular degeneration Father Family Medical History: Liver Disease Additional Family Medical History / Comment(s): etoh abuse Medications and Allergies Home Medications Medication Instructions Recorded Confirmed Type RX: amLODIPine [Norvasc] 5 mg PO HS 12/11/14 11/30/19 History RX: Cholecalciferol [Vitamin D3 5,000 unit PO DAILY 02/05/15 11/30/19 History (25 Mcg = 1000 Iu)] RX: Ubidecarenone [Co Q-10] 100 mg PO DAILY 02/05/15 11/30/19 History RX: [place]-3 Fatty Acids/Fish Oil 1 cap PO DAILY 09/19/15 11/30/19 History [Fish Oil 1,000 mg Softgel] Losartan Potassium [Cozaar] 100 mg PO DAILY 10/28/16 11/30/19 History Nitroglycerin Sl Tabs [Nitrostat] 0.4 mg SUBLINGUAL Q5M PRN 10/28/16 11/30/19 History Calcium Carbonate [Tums] 500 - 1,000 tab PO DAILY PRN 10/20/17 11/30/19 History RX: Isosorbide Mononitrate ER 30 mg PO DAILY 10/20/17 11/30/19 History [Imdur] Aspirin [Adult Low Dose Aspirin EC] 81 mg PO BID 03/18/19 11/30/19 History Metabolic Synergy 1 tab PO DAILY 03/18/19 11/30/19 History Levothyroxine Sodium [Synthroid] 112 mcg PO DAILY 11/30/19 11/30/19 History Pitavastatin Calcium [Livalo] 4 mg PO HS 11/30/19 11/30/19 History Allergies Allergy/AdvReac Type Severity Reaction Status Date / Time No Known Allergies Allergy Verified 11/30/19 12:23 Physical Exam Vitals: Vital Signs Temp Pulse Pulse Resp BP BP Pulse Ox 11/30/19 16:00 98 F 57 L 18 168/88 95 11/30/19 14:30 56 L 17 137/81 97 11/30/19 14:00 61 12 137/77 97 11/30/19 13:30 54 L 11 L 151/89 91 L 11/30/19 13:00 53 L 19 140/77 95 11/30/19 12:30 51 L 11 L 154/83 98 11/30/19 12:00 53 L 10 L 139/84 97 11/30/19 11:30 52 L 12 159/77 99 11/30/19 10:49 97.6 F 53 L 18 163/75 99 Intake and Output 11/30/19 11/30/19 11/30/19 06:59 14:59 22:59 Other: Voiding Method Toilet Weight 67.585 kg 67.585 kg - Constitutional General appearance: mild distress - EENT Eyes: PERRLA Ears: bilateral: normal - Neck Neck: normal ROM - Respiratory Respiratory: bilateral: CTA - Cardiovascular Rhythm: regular - Gastrointestinal General gastrointestinal: soft - Integumentary Integumentary: normal - Neurologic Neurologic: CNII-XII intact - Musculoskeletal Musculoskeletal: gait normal - Psychiatric Psychiatric: A&O x's 3, appropriate affect, intact judgment & insight Results CBC & Chem 7: 11/30/19 11:29 11/30/19 11:29 Labs: Abnormal Lab Results - Last 24 Hours (Table) 11/30/19 11/30/19 Range/Units 11:29 11:29 APTT 20.2 L (22.0-30.0) sec BUN 24 H (9-20) mg/dL Glucose 110 H (74-99) mg/dL Chest x-ray: report reviewed Thrombosis Risk Factor Assmnt - Choose All That Apply Any of the Below Risk Factors Present?: Yes Each Factor Represents 1 point: Obesity (BMI >25) Other Risk Factors: Yes Each Risk Factor Represents 3 Points: Age 75 years or older Other congenital or acquired thrombophilia - If yes, enter type in comment: No Thrombosis Risk Factor Assessment Total Risk Factor Score: 4 Thrombosis Risk Factor Assessment Level: Moderate Risk Assessment and Plan Plan: Assessment Unstable angina History of coronary disease with stents has seen in [place] GERD Hyperlipidemia Hypertension Sleep apnea and no CPAP Hypothyroidism Plan Cardiology consultation
[2019-11-30] MEDS: NITROGLYCERIN OINT 1 INCH/GM PACKET TOPICAL SCH ×2 (18:56→23:15)
[2019-11-30] MEDS ORDERED: amLODIPine 5 MG TAB PO SCH (21:00)
[2019-11-30] MEDS ORDERED: ATORVASTATIN 20 MG TAB PO SCH (21:00)
[2019-12-01] MEDS: NITROGLYCERIN OINT 1 INCH/GM PACKET TOPICAL SCH (06:05)
[2019-12-01] MEDS ORDERED: LEVOTHYROXINE 112 MCG TAB PO SCH (06:30)
[2019-12-01 07:06] LABS: Cholesterol 133 mg/dL (<200); HDL Cholesterol 75 mg/dL (40-60); LDL Cholesterol,Calculated 49 mg/dL (0-99); Triglycerides 46 mg/dL (<150)
[2019-12-01 07:51] VITALS: RESP 18; TEMP 97.6
[2019-12-01] MEDS ORDERED: ISOSORBIDE MONONITRATE ER 30 MG TAB.ER.24H PO SCH (09:00)
[2019-12-01] MEDS ORDERED: ASPIRIN 325 MG TAB PO SCH (09:00)
[2019-12-01] MEDS ORDERED: CHOLECALCIFEROL 1,000 UNIT TAB PO SCH (09:00)
[2019-12-01] MEDS ORDERED: LOSARTAN 50 MG TAB PO SCH (09:00)
[2019-12-01] MEDS ORDERED: amLODIPine 5 MG TAB PO SCH (10:45)
[2019-12-01] MEDS ORDERED: METOPROLOL TARTRATE 12.5 MG TAB PO SCH (10:45)
--- NOTE | 2019-12-01 10:47 | P.CRDCN ---
History of Present Illness History of present illness: HISTORY OF PRESENTING ILLNESS This is a pleasant 79-year-old male past medical history significant for coronary artery disease status post stent placement over 15 years ago, hypertension, dyslipidemia, gastroesophageal reflux disease and obstructive sleep apnea. He follows in the office with Boris. We have been asked to see in consultation for chest pain. He states for the previous few weeks he has been experiencing intermittent episodes of chest discomfort described as pressure sensation that lasts a couple minutes at a time. He has been taking SL nitro as needed and does achieve some relief. He has an appointment to see his donor relations manager on Friday for further evaluation. However, yesterday while at work he continued to have chest pressure. He took nitro on multiple occasions and his chest pain would subside. Overall he didn't feel good and decided to leave work to go home. His co-worker offered to drive him home. When he was walking to the car he had another episode of chest pain associated with diaphoresis, dizziness, shortness of breath and fell to the ground. His co-worker was able to assist him to the ground. DIAGNOSTICS EKG reveals sinus bradycardia first degree AV block with a heart rate of 56 with flattened T waves in inferior leads. Chest xray negative for an acute cardiopulmonary process. Laboratory reviewed, CBC unremarkable, sodium 138, potassium 4.1, creatinine 0.89, troponin negative 3, LDL 49 and HDL 75. Current cardiac medications include pitavastatin 4 mg at bedtime, Imdur 30 mg daily, losartan 100 mg daily, aspirin 81 mg twice a day and amlodipine 5 mg daily. REVIEW OF SYSTEMS At the time of my exam: CONSTITUTIONAL: Denies fever or chills. CARDIOVASCULAR: Denies chest pain, shortness of breath, orthopnea, PND or palpitations. RESPIRATORY: Denies cough. GASTROINTESTINAL: Denies abdominal pain, diarrhea, constipation, nausea or vomiting. MUSCULOSKELETAL: Denies myalgias. NEUROLOGIC: Denies numbness, tingling or weakness. ENDOCRINE: Denies fatigue, weight change, polydipsia or polyurina. GENITOURINARY: Denies burning, hematuria or urgency with micturation. HEMATOLOGIC: Denies history of anemia or bleeding. PHYSICAL EXAMINATION Blood pressure 186/88 heart rate 54 afebrile and maintaining oxygen saturation on room air. CONSTITUTIONAL: No apparent distress. HEENT: Head is normocephalic. Pupils are equal, round. Sclerae anicteric. Mucous membranes of the mouth are moist. No JVD. No carotid bruit. CHEST EXAMINATION: Lungs are clear to auscultation. No chest wall tenderness is noted on palpation or with deep breathing. HEART EXAMINATION: Regular rate and rhythm. S1, S2 heard. No murmurs, gallops or rub. ABDOMEN: Soft, nontender. Positive bowel sounds. EXTREMITIES: 2+ peripheral pulses, no lower extremity edema and no calf tenderness. NEUROLOGIC EXAMINATION: Patient is awake, alert and oriented x3. ASSESSMENT Unstable angina Near syncope, telemetry unremarkable. No LOC. History of coronary artery disease status post PCI, exact details unavailable. Denies piror myocardial infarction. Hypertension, uncontrolled Dyslipidemia PLAN Recommend proceeding with cardiac catheterization to assess for progression of underlying coronary artery disease. Lengthy discussion with the patient and he would prefer to have his primary donor relations manager perform this intervention as he knows him and his anatomy well. Discussed at length with his primary donor relations manager's team and they recommended transfer to [facility] to undergo cardiac catheterization with Dr. Reardon's associate due to her. They have accepted the transfer. Case management notified. Increase amlodipine to 5 mg twice a day and decrease aspirin to 81 mg daily. Give small dose of beta nika. Continue heparin infusion for transfer. Thank you kindly for this consultation. Nurse Practitioner note has been reviewed, I agree with a documented findings and plan of care. Patient was seen and examined. Past Medical History Past Medical History: Coronary Artery Disease (CAD), Chest Pain / Angina, GERD/Reflux, Hyperlipidemia, Hypertension, Osteoarthritis (OA), Sleep Apnea/CPAP/BIPAP, Thyroid Disorder Additional Past Medical History / Comment(s): NO TX FOR SLEEP APNEA. OCC GERD R/T DIET; HX DIVERTICULITIS X1. shingles, hypothyroid History of Any Multi-Drug Resistant Organisms: None Reported Past Surgical History: Appendectomy, Heart Catheterization With Stent, Orthopedic Surgery, Tonsillectomy Additional Past Surgical History / Comment(s): 09-14-15 total lt knee replacm ent. ACCORDING TO PATIENT, AFTER HIS LAST KNEE SURGERY, HE DID NOT FEEL WELL AFTER, WITHIN A WEEK OR TWO, HIS APPENDIX HAD RUPTURED AND HAD AN APPENDECTOMY (HAD COMPLICATIONS WITH VERY HIGH BLOOD PRESSURE DURING THIS ILLNESS. HEART CATH X2, STENT X1 EACH. RONY CTR, RONY CUBITAL TUNNEL RELEASE ELBOWS. RT KNEE SCOPE 2011. LT KNEE ARTHROSCOPIC 12/2014. RT ROTATOR CUFF 09/26/2014. carpel tunnel bilat and trigger finger sx Past Anesthesia/Blood Transfusion Reactions: Motion Sickness Date of Last Stent Placement:: 2004 EST Past Psychological History: No Psychological Hx Reported Smoking Status: Former smoker Past Alcohol Use History: None Reported Additional Past Alcohol Use History / Comment(s): SMOKED AGE 18 ( 1958) TILL AGE 28( 1967)1/2 TO 1 PPD. Past Drug Use History: None Reported - Past Family History Mother Family Medical History: Coronary Artery Disease (CAD), Hyperlipidemia Additional Family Medical History / Comment(s): heart stents, quadruple bypass,rony dry macular degeneration Father Family Medical History: Liver Disease Additional Family Medical History / Comment(s): etoh abuse Medications and Allergies Home Medications Medication Instructions Recorded Confirmed Type amLODIPine [Norvasc] 5 mg PO HS 12/11/14 11/30/19 History Cholecalciferol [Vitamin D3 (25 5,000 unit PO DAILY 02/05/15 11/30/19 History Mcg = 1000 Iu)] Ubidecarenone [Co Q-10] 100 mg PO DAILY 02/05/15 11/30/19 History [place]-3 Fatty Acids/Fish Oil [Fish 1 cap PO DAILY 09/19/15 11/30/19 History Oil 1,000 mg Softgel] Losartan Potassium [Cozaar] 100 mg PO DAILY 10/28/16 11/30/19 History Nitroglycerin Sl Tabs [Nitrostat] 0.4 mg SUBLINGUAL Q5M PRN 10/28/16 11/30/19 History Calcium Carbonate [Tums] 500 - 1,000 tab PO DAILY PRN 10/20/17 11/30/19 History Isosorbide Mononitrate ER [Imdur] 30 mg PO DAILY 10/20/17 11/30/19 History Aspirin [Adult Low Dose Aspirin EC] 81 mg PO BID 03/18/19 11/30/19 History Metabolic Synergy 1 tab PO DAILY 03/18/19 11/30/19 History Levothyroxine Sodium [Synthroid] 112 mcg PO DAILY 11/30/19 11/30/19 History Pitavastatin Calcium [Livalo] 4 mg PO HS 11/30/19 11/30/19 History Allergies Allergy/AdvReac Type Severity Reaction Status Date / Time No Known Allergies Allergy Verified 11/30/19 12:23 Physical Exam Vitals: Vital Signs Temp Pulse Pulse Resp BP BP Pulse Ox 12/01/19 07:50 97.6 F 54 L 18 186/88 98 12/01/19 04:00 97.9 F 54 L 17 161/89 98 11/30/19 23:14 97.9 F 67 17 187/82 95 11/30/19 19:03 98.3 F 69 16 160/85 98 11/30/19 16:00 98 F 57 L 18 168/88 95 11/30/19 14:30 56 L 17 137/81 97 11/30/19 14:00 61 12 137/77 97 11/30/19 13:30 54 L 11 L 151/89 91 L 11/30/19 13:00 53 L 19 140/77 95 11/30/19 12:30 51 L 11 L 154/83 98 11/30/19 12:00 53 L 10 L 139/84 97 11/30/19 11:30 52 L 12 159/77 99 11/30/19 10:49 97.6 F 53 L 18 163/75 99 Intake and Output 11/30/19 12/01/19 12/01/19 22:59 06:59 14:59 Intake Total 287 Balance 287 Intake: Intake, IV Titration 65 Amount Heparin Sod,Pork in 0.45% 65 NaCl 25,000 unit In 0.45 % NaCl 1 250ml.bag @ 12 UNITS/KG/HR 8.11 mls/hr IV .Q24H [facility] Rx#: [id number] Oral 222 Other: Voiding Method Toilet Toilet # Voids 1 Weight 67.585 kg Results 11/30/19 11:29 11/30/19 11:29 Cardiac Enzymes 11/30/19 11/30/19 11/30/19 Range/Units 11:29 11:29 18:25 AST 33 (17-59) U/L Troponin I <0.012 <0.012 (0.000-0.034) ng/mL 11/30/19 Range/Units 23:41 AST (17-59) U/L Troponin I <0.012 (0.000-0.034) ng/mL Coagulation 11/30/19 11/30/19 12/01/19 Range/Units 11:29 18:25 05:48 PT 10.6 (9.0-12.0) sec APTT 20.2 L 57.8 H 51.0 H (22.0-30.0) sec Lipids 12/01/19 Range/Units 05:48 Triglycerides 46 (<150) mg/dL Cholesterol 133 (<200) mg/dL HDL Cholesterol 75 H (40-60) mg/dL CBC 11/30/19 Range/Units 11:29 WBC 8.0 (3.8-10.6) k/uL RBC 4.84 (4.30-5.90) m/uL Hgb 14.4 (13.0-17.5) gm/dL Hct 44.4 (39.0-53.0) % Plt Count 163 (150-450) k/uL Comprehensive Metabolic Panel 11/30/19 Range/Units 11:29 Sodium 138 (137-145) mmol/L Potassium 4.1 (3.5-5.1) mmol/L Chloride 107 (98-107) mmol/L Carbon Dioxide 24 (22-30) mmol/L BUN 24 H (9-20) mg/dL Creatinine 0.89 (0.66-1.25) mg/dL Glucose 110 H (74-99) mg/dL Calcium 9.2 (8.4-10.2) mg/dL AST 33 (17-59) U/L ALT 27 (4-49) U/L Alkaline Phosphatase 67 (38-126) U/L Total Protein 7.2 (6.3-8.2) g/dL Albumin 4.4 (3.5-5.0) g/dL Current Medications Generic Name Dose Route Start Last Admin Trade Name Freq PRN Reason Stop Dose Admin Acetaminophen 650 mg 11/30/19 17:03 Tylenol Tab PO Q6HR PRN Fever and/ or Pain Amlodipine Besylate 5 mg 11/30/19 21:00 11/30/19 20:29 Norvasc PO 5 mg HS SABINE Administration Aspirin 325 mg 12/01/19 09:00 Aspirin PO DAILY [facility] Atorvastatin Calcium 20 mg 11/30/19 21:00 11/30/19 20:29 Lipitor PO 20 mg HS SABINE Administration Calcium Carbonate/Glycine 500 mg 11/30/19 16:54 Tums PO DAILY PRN GERD Cholecalciferol 5,000 unit 01/15/20 09:00 Vitamin D3 (25 Mcg = 1000 Iu) PO DAILY [facility] Heparin Sodium/Sodium Chloride 250 mls @ 8.11 mls/hr 11/30/19 13:15 11/30/19 13:36 25,000 unit/ Sodium Chloride IV 12 units/kg/hr .Q24H SABINE 8.11 mls/hr Administration Protocol 12 UNITS/KG/HR Isosorbide Mononitrate 30 mg 12/01/19 09:00 Imdur PO DAILY [facility] Levothyroxine Sodium 112 mcg 12/01/19 06:30 12/01/19 06:05 Synthroid PO 112 mcg 0630 [facility] Administration Losartan Potassium 100 mg 12/01/19 09:00 Cozaar PO DAILY [facility] Nitroglycerin 0.4 mg 11/30/19 13:31 Nitrostat SUBLINGUAL Q5M PRN Chest Pain Nitroglycerin 1 inch 11/30/19 18:00 12/01/19 06:05 Nitro-Bid Oint TOPICAL 1 inch Q6HR [facility] Administration Intake and Output 11/30/19 12/01/19 12/01/19 22:59 06:59 14:59 Intake Total 287 Balance 287 Intake: Intake, IV Titration 65 Amount Heparin Sod,Pork in 0.45% 65 NaCl 25,000 unit In 0.45 % NaCl 1 250ml.bag @ 12 UNITS/KG/HR 8.11 mls/hr IV .Q24H [facility] Rx#: [id number] Oral 222 Other: Voiding Method Toilet Toilet # Voids 1 Weight 67.585 kg 11/30/19 11:29 11/30/19 11:29
--- NOTE | 2019-12-01 11:01 | ECHOF ---
Referral Reason:syncope, chest pain MEASUREMENTS -------- HEIGHT: 162.6 cm WEIGHT: 67.6 kg BP: 186/88 RVIDd: 2.6 cm (< 3.3) IVSd: 0.9 cm (0.6 - 1.1) LVIDd: 4.6 cm (3.9 - 5.3) LVPWd: 1.1 cm (0.6 - 1.1) IVSs: 1.4 cm LVIDs: 3.1 cm LVPWs: 1.7 cm LA Diam: 3.6 cm (2.7 - 3.8) LAESV Index (A-L): 26.21 ml/m Ao Diam: 3.6 cm (2.0 - 3.7) AV Cusp: 2.2 cm (1.5 - 2.6) MV EXCURSION: 12.685 mm (> 18.000) MV EF SLOPE: 66 mm/s (70 - 150) EPSS: 0.5 cm MV E Erick: 0.84 m/s MV DecT: 251 ms MV A Erick: 0.99 m/s MV E/A Ratio: 0.85 AR PHT: 792 ms RAP: 5.00 mmHg RVSP: 28.88 mmHg FINDINGS -------- Sinus rhythm. This was a technically good study. The left ventricular size is normal. Left ventricular wall thickness is normal. Overall left vent ricular systolic function is normal with, an EF between 60 - 65 %. The right ventricle is normal in size. Normal LA size by volume 22+/-6 ml/m2. The right atrium is normal in size. Interatrial and interventricular septum intact. There is mild aortic valve sclerosis. There is [id number] aortic regurgitation. The mitral valve leaflets are mildly thickened. Mild mitral annular calcification present. Mild m itral regurgitation is present. Mild tricuspid regurgitation present. Right ventricular systolic pressure is normal at < 35 mmHg. Trace/mild (physiologic) pulmonic regurgitation. The aortic root size is normal. Normal inferior vena cava with normal inspiratory collapse consistent with estimated right atrial pre ssure of 5 mmHg. There is no pericardial effusion. CONCLUSIONS -------- 1. Sinus rhythm. 2. This was a technically good study. 3. The left ventricular size is normal. 4. Left ventricular wall thickness is normal. 5. Overall left ventricular systolic function is normal with, an EF between 60 - 65 %. 6. The right ventricle is normal in size. 7. Normal LA size by volume 22+/-6 ml/m2. 8. The right atrium is normal in size. 9. Interatrial and interventricular septum intact. 10. There is mild aortic valve sclerosis. 11. There is [id number] aortic regurgitation. 12. The mitral valve leaflets are mildly thickened. 13. Mild mitral annular calcification present. 14. Mild mitral regurgitation is present. 15. Mild tricuspid regurgitation present. 16. Right ventricular systolic pressure is normal at < 35 mmHg. 17. Trace/mild (physiologic) pulmonic regurgitation. 18. The aortic root size is normal. 19. Normal inferior vena cava with normal inspiratory collapse consistent with estimated right atrial pressure of 5 mmHg. 20. There is no pericardial effusion. 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
--- NOTE | 2019-12-01 11:14 | P.DS ---
Providers Date of admission: 11/30/19 13:31 Expected date of discharge: 12/01/19 Attending physician: Delonte Corbin Consults: 11/30/19 13:31 Consult Physician Urgent Consulting Provider: [facility] Consult Reason/Comments: Unstable angina Do you want consulting provider notified?: Yes Primary care physician: Delonte Corbin [facility] Course: 79-year-old male with history of coronary disease presented emergency room with syncopal episode after using nitroglycerin. Patient was evaluated by cardiology they recommended cardiac cath. Dr. Escalante from [facility] accepted transfer for did treatment. Troponins were negative 3 echo good ejection fraction Assessment Unstable angina troponins negative 3 History of coronary disease with stents recreation clerk Dr. Escalante History of GERD Hyperlipidemia Hypertension Sleep apnea Hypothyroidism Plan Transferred to [facility] under care of Plan - Discharge Summary Discharge Rx Participant: Yes New Discharge Prescriptions: No Action amLODIPine [Norvasc] 5 mg PO HS Cholecalciferol [Vitamin D3 (25 Mcg = 1000 Iu)] 5,000 unit PO DAILY Ubidecarenone [Co Q-10] 100 mg PO DAILY [place]-3 Fatty Acids/Fish Oil [Fish Oil 1,000 mg Softgel] 1 cap PO DAILY Nitroglycerin Sl Tabs [Nitrostat] 0.4 mg SUBLINGUAL Q5M PRN PRN Reason: Chest Pain Losartan Potassium [Cozaar] 100 mg PO DAILY Isosorbide Mononitrate ER [Imdur] 30 mg PO DAILY Calcium Carbonate [Tums] 500 - 1,000 tab PO DAILY PRN PRN Reason: GERD Metabolic Synergy 1 tab PO DAILY Aspirin [Adult Low Dose Aspirin EC] 81 mg PO BID Levothyroxine Sodium [Synthroid] 112 mcg PO DAILY Pitavastatin Calcium [Livalo] 4 mg PO HS Discharge Medication List amLODIPine [Norvasc] 5 mg PO HS 12/11/14 [History] Cholecalciferol [Vitamin D3 (25 Mcg = 1000 Iu)] 5,000 unit PO DAILY 02/05/15 [History] Ubidecarenone [Co Q-10] 100 mg PO DAILY 02/05/15 [History] [place]-3 Fatty Acids/Fish Oil [Fish Oil 1,000 mg Softgel] 1 cap PO DAILY 09/19/15 [History] Losartan Potassium [Cozaar] 100 mg PO DAILY 10/28/16 [History] Nitroglycerin Sl Tabs [Nitrostat] 0.4 mg SUBLINGUAL Q5M PRN 10/28/16 [History] Calcium Carbonate [Tums] 500 - 1,000 tab PO DAILY PRN 10/20/17 [History] Isosorbide Mononitrate ER [Imdur] 30 mg PO DAILY 10/20/17 [History] Aspirin [Adult Low Dose Aspirin EC] 81 mg PO BID 03/18/19 [History] Metabolic Synergy 1 tab PO DAILY 03/18/19 [History] Levothyroxine Sodium [Synthroid] 112 mcg PO DAILY 11/30/19 [History] Pitavastatin Calcium [Livalo] 4 mg PO HS 11/30/19 [History] Follow up Appointment(s)/Referral(s): Delonte Corbin MD [Primary Care Provider] - 1-2 days
[2019-12-01 11:37] VITALS: BP 177/79; PULSE 64
== END 2019-12-01 13:18 ==
LOC: EC 10:46 → 1SOBS 13:31
PROVIDERS: ADMIT Family Medicine; ATTEND Family Medicine
DX: I25.119 Atherosclerotic heart disease of native coronary artery with unspecified angina pectoris (principal); Z95.5 Presence of coronary angioplasty implant and graft; K21.9 Gastro-esophageal reflux disease without esophagitis; E78.5 Hyperlipidemia, unspecified; I10 Essential (primary) hypertension; G47.33 Obstructive sleep apnea (adult) (pediatric); E03.9 Hypothyroidism, unspecified; E78.00 Pure hypercholesterolemia, unspecified; M19.90 Unspecified osteoarthritis, unspecified site; K57.90 Diverticulosis of intestine, part unspecified, without perforation or abscess without bleeding; R00.1 Bradycardia, unspecified; F43.8 Other reactions to severe stress; I44.0 Atrioventricular block, first degree; J98.6 Disorders of diaphragm; I08.3 Combined rheumatic disorders of mitral, aortic and tricuspid valves; E66.9 Obesity, unspecified; Z68.25 Body mass index [BMI] 25.0-25.9, adult; Z79.899 Other long term (current) drug therapy; Z79.82 Long term (current) use of aspirin; Z79.890 Hormone replacement therapy; Z86.19 Personal history of other infectious and parasitic diseases; Z90.49 Acquired absence of other specified parts of digestive tract; Z98.890 Other specified postprocedural states; Z90.89 Acquired absence of other organs; Z96.652 Presence of left artificial knee joint; Z86.69 Personal history of other diseases of the nervous system and sense organs; Z87.891 Personal history of nicotine dependence; Z87.898 Personal history of other specified conditions; Z82.49 Family history of ischemic heart disease and other diseases of the circulatory system; Z83.438 Family history of other disorder of lipoprotein metabolism and other lipidemia; Z83.518 Family history of other specified eye disorder; Z83.79 Family history of other diseases of the digestive system; Z81.1 Family history of alcohol abuse and dependence
CPT/HCPCS: 93005 ×2; 96376; 96365; 96366; 99291; 36415; 93306; 80061; 80053; 84484; 85025; 85610; 85730 ×2; 71046; G0378 ×2; J1644 ×2

== ENCOUNTER → 2020-05-22 | Outpatient (CLI) | payer MEDICARE | END | disposition home or self-care (01) | LOC: LABWHC1 07:12 | PROVIDERS: ATTEND Internal Medicine Endocrinology, Diabetes & Metabolism | DX: E03.8 Other specified hypothyroidism (principal) | CPT/HCPCS: 36415; 84443 ==

== ENCOUNTER → 2020-10-16 | Outpatient (CLI) | payer MEDICARE ==
[2020-10-16 08:37] LABS: Basophils % (A) 1 %; Eosinophils # (A) 0.1 k/uL (0-0.7); Eosinophils % (A) 2 %; HCT 41.9 % (39.0-53.0); Lymphocytes # (A) 2.2 k/uL (1.0-4.8); Lymphocytes % (A) 29 %; MCH 31.4 pg (25.0-35.0); MCHC 33.4 g/dL (31.0-37.0); MCV 93.9 fL (80.0-100.0); Mean Platelet Volume 8.8; Monocytes # (A) 0.5 k/uL (0-1.0); Monocytes % (A) 6 %; Neutrophils # (A) 4.6 k/uL (1.3-7.7); Neutrophils % (A) 60 %; Platelet Count 171 k/uL (150-450); RBC 4.46 m/uL (4.30-5.90); RDW 12.4 % (11.5-15.5); WBC 7.6 k/uL (3.8-10.6)
[2020-10-16 15:50] LABS: African American GFR (CKD) 83.2 (60.0-200.0); Albumin 4.4 g/dL (3.80-4.90); Albumin/Globulin Ratio 2.1 (1.60-3.17); Anion Gap 7.5 mmol/L (4.00-12.00); Calcium 9.6 mg/dL (8.7-10.3); Carbon Dioxide 25.5 mmol/L (21.6-31.8); Chol/HDL Ratio 1.99; Globulin 2.1 g/dL (1.6-3.3); LDL Cholesterol,Calculated 60.8 mg/dL (0.0-131.0); Non-African American GFR(CKD) 71.8 (60.0-200.0); Potassium 4.8 mmol/L (3.5-5.5); Total Bilirubin 0.5 mg/dL (0.2-1.2); Total Protein 6.5 g/dL (6.2-8.2); VLDL Calculation 10.2 mg/dL (5.00-40.00)
== END | disposition home or self-care (01) ==
LOC: LABWHC1 07:35
PROVIDERS: ATTEND Internal Medicine Cardiovascular Disease
DX: E78.5 Hyperlipidemia, unspecified (principal); I25.10 Atherosclerotic heart disease of native coronary artery without angina pectoris
CPT/HCPCS: 36415; 80053; 80061; 85025

== ENCOUNTER → 2020-10-26 | Outpatient (CLI) | payer MEDICARE | END | disposition home or self-care (01) | LOC: LABWHC1 09:11 | PROVIDERS: ATTEND Nurse Practitioner Family | DX: U07.1 COVID-19 (principal) | CPT/HCPCS: U0003; C9803 ==

== ENCOUNTER → 2020-11-14 | Outpatient (CLI) | payer MEDICARE ==
--- NOTE | 2020-11-14 12:18 | XR ---
EXAMINATION TYPE: XR chest 2V DATE OF EXAM: 11/14/2020 COMPARISON: 11/30/2019 INDICATION: Cough TECHNIQUE: Frontal and lateral views of the chest are obtained. FINDINGS: The heart size is normal. The pulmonary vasculature is normal. The lungs are clear. IMPRESSION: 1. No acute pulmonary process.
== END | disposition home or self-care (01) ==
LOC: RADXRMAIN 11:50
PROVIDERS: ATTEND Nurse Practitioner Family
DX: R05 Cough (principal)
CPT/HCPCS: 71046

== ENCOUNTER → 2020-12-04 | Outpatient (CLI) | payer MEDICARE | END | disposition home or self-care (01) | LOC: LABWHC1 13:39 | PROVIDERS: ATTEND Internal Medicine Endocrinology, Diabetes & Metabolism | DX: E03.8 Other specified hypothyroidism (principal) | CPT/HCPCS: 36415; 84443 ==

== ENCOUNTER → 2020-12-06 | Outpatient (CLI) | payer MEDICARE ==
--- NOTE | 2020-12-06 14:22 | XR ---
EXAMINATION TYPE: XR chest 2V DATE OF EXAM: 12/06/2020 COMPARISON: 11/14/2020 INDICATION: Abnormal auscultation TECHNIQUE: Frontal and lateral views of the chest are obtained. FINDINGS: The heart size is normal. The pulmonary vasculature is normal. Subtle right lower lobe infiltrate may be present. IMPRESSION: 1. Clinical correlation recommended for subtle right lower lobe infiltrate. Correlate for pneumonia a nd atelectasis.
== END | disposition home or self-care (01) ==
LOC: RADXRMAIN 13:21
PROVIDERS: ATTEND Nurse Practitioner
DX: R06.00 Dyspnea, unspecified (principal)
CPT/HCPCS: 71046

== ENCOUNTER → 2021-02-14 | Outpatient (CLI) | payer MEDICARE | END | disposition home or self-care (01) | LOC: LABWHC1 15:53 | PROVIDERS: ATTEND Family Medicine | DX: Z20.822 Contact with and (suspected) exposure to COVID-19 (principal) | CPT/HCPCS: U0003; C9803; U0005 ==

== ENCOUNTER → 2021-06-05 | Outpatient (CLI) | payer MEDICARE | END | disposition home or self-care (01) | LOC: LABWHC1 07:00 | PROVIDERS: ATTEND Internal Medicine Endocrinology, Diabetes & Metabolism | DX: Z11.52 Encounter for screening for COVID-19 (principal); E03.8 Other specified hypothyroidism | CPT/HCPCS: 36415; 84443; 86769 ==

== ENCOUNTER → 2021-06-26 | Outpatient (CLI) | payer MEDICARE ==
[2021-06-26 11:06] LABS: Basophils # (A) 0.03 X 10*3/uL (0.00-0.10); Basophils % (A) 0.6 %; Eosinophils # (A) 0.14 X 10*3/uL (0.04-0.35); Eosinophils % (A) 2.7 %; HCT 41.8 % (39.6-50.0); HGB 13.8 g/dL (13.0-17.0); Lymphocytes # (A) 1.72 X 10*3/uL (0.90-5.00); Lymphocytes % (A) 32.6 %; MCH 31.5 pg (27.0-32.0); MCV 95.4 fL (80.0-97.0); Mean Platelet Volume 12.1 fL (9.5-12.2); Monocytes # (A) 0.51 X 10*3/uL (0.20-1.00); Monocytes % (A) 9.7 %; Neutrophils # (A) 2.85 X 10*3/uL (1.80-7.70); Platelet Count 171 X 10*3/uL (140-440); RBC 4.38 X 10*6/uL (4.40-5.60); RDW 13.2 % (11.5-14.5); WBC 5.27 X 10*3/uL (4.50-10.00)
[2021-06-26 14:25] LABS: African American GFR (CKD) 83.2 (60.0-200.0); Albumin 4.3 g/dL (3.80-4.90); Albumin/Globulin Ratio 1.72 (1.60-3.17); Anion Gap 8.4 mmol/L (4.00-12.00); Calcium 8.8 mg/dL (8.7-10.3); Carbon Dioxide 26.6 mmol/L (21.6-31.8); Globulin 2.5 g/dL (1.6-3.3); Non-African American GFR(CKD) 71.8 (60.0-200.0); Potassium 4.6 mmol/L (3.5-5.5); Total Bilirubin 0.6 mg/dL (0.2-1.2); Total Protein 6.8 g/dL (6.2-8.2)
[2021-06-26 14:26] LABS: Chol/HDL Ratio 1.9
== END | disposition home or self-care (01) ==
LOC: LABWHC1 07:05
PROVIDERS: ATTEND Internal Medicine Cardiovascular Disease
DX: I25.10 Atherosclerotic heart disease of native coronary artery without angina pectoris (principal); E78.5 Hyperlipidemia, unspecified
CPT/HCPCS: 36415; 80053; 80061; 85025

== ENCOUNTER → 2021-12-03 | Outpatient (CLI) | payer MEDICARE | END | disposition home or self-care (01) | LOC: LABWHC1 12:24 | PROVIDERS: ATTEND Internal Medicine Endocrinology, Diabetes & Metabolism | DX: E03.8 Other specified hypothyroidism (principal) | CPT/HCPCS: 36415; 84443 ==

== ENCOUNTER → 2022-01-16 | Outpatient (CLI) | payer MEDICARE ==
[2022-01-16 13:13] LABS: Basophils # (A) 0.04 X 10*3/uL (0.00-0.10); Basophils % (A) 0.8 %; Eosinophils # (A) 0.08 X 10*3/uL (0.04-0.35); Eosinophils % (A) 1.5 %; HCT 43.5 % (39.6-50.0); HGB 14.2 g/dL (13.0-17.0); Immature Grans, Automated 0.2 %; Lymphocytes # (A) 1.79 X 10*3/uL (0.90-5.00); Lymphocytes % (A) 33.8 %; MCH 30.5 pg (27.0-32.0); MCHC 32.6 g/dL (32.0-37.0); MCV 93.3 fL (80.0-97.0); Mean Platelet Volume 11.8 fL (9.5-12.2); Monocytes # (A) 0.55 X 10*3/uL (0.20-1.00); Monocytes % (A) 10.4 %; NRBC Per 100 WBC 0 /100 WBCS (0.0-0.0); Neutrophils # (A) 2.83 X 10*3/uL (1.80-7.70); Neutrophils % (A) 53.3 %; Platelet Count 182 X 10*3/uL (140-440); RBC 4.66 X 10*6/uL (4.40-5.60); RDW 12.9 % (11.5-14.5)
[2022-01-16 13:23] LABS: African American GFR (CKD) 80.6 (60.0-200.0); Albumin 4.6 g/dL (3.8-4.9); Albumin/Globulin Ratio 2.23 (1.60-3.17); BUN/Creat Ratio 23.04 Ratio (12.00-20.00); Blood Urea Nitrogen 23.5 mg/dL (9.0-27.0); Calcium 9.3 mg/dL (8.7-10.3); Carbon Dioxide 22.2 mmol/L (20.0-27.5); Globulin 2.1 g/dL (1.6-3.3); HDL Cholesterol 71.2 mg/dL (40.00-60.00); Non-African American GFR(CKD) 69.6 (60.0-200.0); Potassium 4.7 mmol/L (3.5-5.5); Total Bilirubin 0.4 mg/dL (0.30-1.20); Total Protein 6.7 g/dL (6.2-8.2)
[2022-01-16 13:33] LABS: Chol/HDL Ratio 1.88 Ratio
== END | disposition home or self-care (01) ==
LOC: LABWHC1 07:16
PROVIDERS: ATTEND Internal Medicine Cardiovascular Disease
DX: E78.5 Hyperlipidemia, unspecified (principal)
CPT/HCPCS: 36415; 80053; 80061; 83721; 85025

== ENCOUNTER → 2022-05-29 | Outpatient (CLI) | payer MEDICARE ==
[2022-05-29 18:43] LABS: African American GFR (CKD) 87.2 (60.0-200.0); Albumin 4.2 g/dL (3.8-4.9); Albumin/Globulin Ratio 1.77 (1.60-3.17); Anion Gap 11.6 mmol/L (10.00-18.00); BUN/Creat Ratio 20.92 Ratio (12.00-20.00); Calcium 9.1 mg/dL (8.7-10.3); Carbon Dioxide 24.2 mmol/L (20.0-27.5); Globulin 2.4 g/dL (1.6-3.3); Non-African American GFR(CKD) 75.3 (60.0-200.0); Potassium 3.9 mmol/L (3.5-5.5); Total Bilirubin 0.3 mg/dL (0.30-1.20); Total Protein 6.6 g/dL (6.2-8.2)
== END | disposition home or self-care (01) ==
LOC: LABWHC1 11:54
PROVIDERS: ATTEND Internal Medicine Endocrinology, Diabetes & Metabolism
DX: E03.8 Other specified hypothyroidism (principal)
CPT/HCPCS: 36415; 80053; 84443

== ENCOUNTER → 2022-09-06 | Outpatient (CLI) | payer MEDICARE | END | disposition home or self-care (01) | LOC: LABWHC1 15:20 | PROVIDERS: ATTEND Internal Medicine Endocrinology, Diabetes & Metabolism | DX: E03.8 Other specified hypothyroidism (principal) | CPT/HCPCS: 36415; 84443 ==

== ENCOUNTER → 2023-04-03 | Outpatient (CLI) | payer MEDICARE ==
[2023-04-03 14:50] LABS: Basophils # (A) 0.03 X 10*3/uL (0.00-0.10); Basophils % (A) 0.5 %; Eosinophils # (A) 0.05 X 10*3/uL (0.04-0.35); Eosinophils % (A) 0.9 %; HCT 40.9 % (39.6-50.0); HGB 13.4 g/dL (13.0-17.0); Immature Grans, Automated 0.2 %; Lymphocytes # (A) 1.68 X 10*3/uL (0.90-5.00); Lymphocytes % (A) 29.8 %; MCH 30.9 pg (27.0-32.0); MCHC 32.8 g/dL (32.0-37.0); MCV 94.5 fL (80.0-97.0); Mean Platelet Volume 11.5 fL (9.5-12.2); Monocytes # (A) 0.46 X 10*3/uL (0.20-1.00); Monocytes % (A) 8.2 %; NRBC Per 100 WBC 0 /100 WBCS (0.0-0.0); Neutrophils # (A) 3.41 X 10*3/uL (1.80-7.70); Neutrophils % (A) 60.4 %; Platelet Count 163 X 10*3/uL (140-440); RBC 4.33 X 10*6/uL (4.40-5.60); RDW 13.3 % (11.5-14.5); WBC 5.64 X 10*3/uL (4.50-10.00)
[2023-04-03 15:08] LABS: African American GFR (CKD) 77.3 (60.0-200.0); Albumin 4.2 g/dL (3.8-4.9); Albumin/Globulin Ratio 2.02 (1.60-3.17); Anion Gap 9.1 mmol/L (10.00-18.00); BUN/Creat Ratio 20.95 Ratio (12.00-20.00); Calcium 9.1 mg/dL (8.7-10.3); Carbon Dioxide 25.4 mmol/L (20.0-27.5); Globulin 2.1 g/dL (1.6-3.3); Non-African American GFR(CKD) 66.7 (60.0-200.0); Potassium 4.3 mmol/L (3.5-5.5); Total Bilirubin 0.4 mg/dL (0.30-1.20); Total Protein 6.3 g/dL (6.2-8.2)
== END | disposition home or self-care (01) ==
LOC: LABWHC1 09:17
PROVIDERS: ATTEND Internal Medicine Endocrinology, Diabetes & Metabolism
DX: I10 Essential (primary) hypertension (principal); E03.8 Other specified hypothyroidism
CPT/HCPCS: 36415; 80053; 84443; 85025

== ENCOUNTER → 2023-10-17 | Outpatient (CLI) | payer MEDICARE | END | disposition home or self-care (01) | LOC: LABWHC1 11:12 | PROVIDERS: ATTEND Internal Medicine Endocrinology, Diabetes & Metabolism | DX: E03.8 Other specified hypothyroidism (principal) | CPT/HCPCS: 36415; 84443 ==

== ENCOUNTER 2023-10-31 11:17 | Emergency (ER) | payer MEDICARE ==
[2023-10-31 11:54] VITALS: BP 160/82; PULSE 56; RESP 18; TEMP 98
[2023-10-31] MEDS ORDERED: DIPH,PERTUS(ACELL)TETVAC-LF 0.5 ML VIAL IM ONE (12:04)
--- NOTE | 2023-10-31 12:23 | ED ---
Wound/Laceration HPI - General Chief Complaint: Wound/Laceration Stated Complaint: left finger laceration Time Seen by Provider: 10/31/23 11:51 Source: patient Mode of arrival: ambulatory Limitations: no limitations - History of Present Illness Initial Comments: Patient is an 83-year-old male presented ER with chief complaint of laceration. Patient states he was working with electrical wire yesterday and got cut by some of it. Patient states it happened about 24 hours ago. Patient denies any paresthesias or limited range of motion. Patient is taking Brilinta and bleeding is under control at this time. Tetanus vaccination status is unknown. - Related Data Home Medications Medication Instructions Recorded Confirmed amLODIPine [Norvasc] 5 mg PO HS 12/11/14 11/30/19 Cholecalciferol [Vitamin D3 (25 5,000 unit PO DAILY 02/05/15 11/30/19 Mcg = 1000 Iu)] Ubidecarenone [Co Q-10] 100 mg PO DAILY 02/05/15 11/30/19 [place]-3 Fatty Acids/Fish Oil [Fish 1 cap PO DAILY 09/19/15 11/30/19 Oil 1,000 mg Softgel] Losartan Potassium [Cozaar] 100 mg PO DAILY 10/28/16 11/30/19 Nitroglycerin Sl Tabs [Nitrostat] 0.4 mg SUBLINGUAL Q5M PRN 10/28/16 11/30/19 Calcium Carbonate [Tums] 500 - 1,000 tab PO DAILY PRN 10/20/17 11/30/19 Isosorbide Mononitrate ER [Imdur] 30 mg PO DAILY 10/20/17 11/30/19 Aspirin [Adult Low Dose Aspirin EC] 81 mg PO BID 03/18/19 11/30/19 Metabolic Synergy 1 tab PO DAILY 03/18/19 11/30/19 Levothyroxine Sodium [Synthroid] 112 mcg PO DAILY 11/30/19 11/30/19 Pitavastatin Calcium [Livalo] 4 mg PO HS 11/30/19 11/30/19 Allergies Allergy/AdvReac Type Severity Reaction Status Date / Time No Known Allergies Allergy Verified 10/31/23 11:47 Review of Systems ROS Statement: Those systems with pertinent positive or pertinent negative responses have been documented in the HPI. ROS Other: All systems not noted in ROS Statement are negative. Past Medical History Past Medical History: Coronary Artery Disease (CAD), Chest Pain / Angina, GERD/Reflux, Hyperlipidemia, Hypertension, Osteoarthritis (OA), Sleep Apnea/CPAP/BIPAP, Thyroid Disorder Additional Past Medical History / Comment(s): NO TX FOR SLEEP APNEA. OCC GERD R/T DIET; HX DIVERTICULITIS X1. shingles, hypothyroid History of Any Multi-Drug Resistant Organisms: None Reported Past Surgical History: Appendectomy, Heart Catheterization With Stent, Orthopedic Surgery, Tonsillectomy Additional Past Surgical History / Comment(s): 09-14-15 total lt knee replacment. ACCORDING TO PATIENT, AFTER HIS LAST KNEE SURGERY, HE DID NOT FEEL WELL AFTER, WITHIN A WEEK OR TWO, HIS APPENDIX HAD RUPTURED AND HAD AN APPENDECTOMY (HAD COMPLICATIONS WITH VERY HIGH BLOOD PRESSURE DURING THIS ILLNESS. HEART CATH X2, STENT X1 EACH. RONY CTR, RONY CUBITAL TUNNEL RELEASE ELBOWS. RT KNEE SCOPE 2011. LT KNEE ARTHROSCOPIC 12/2014. RT ROTATOR CUFF 09/26/2014. carpel tunnel bilat and trigger finger sx Past Anesthesia/Blood Transfusion Reactions: Motion Sickness Date of Last Stent Placement:: 2004 Past Psychological History: No Psychological Hx Reported Smoking Status: Never smoker Past Alcohol Use History: None Reported Past Drug Use History: None Reported - Past Family History Mother Family Medical History: Coronary Artery Disease (CAD), Hyperlipidemia Additional Family Medical History / Comment(s): heart stents, quadruple bypass,rony dry macular degeneration Father Family Medical History: Liver Disease Additional Family Medical History / Comment(s): etoh abuse General Exam Limitations: no limitations General appearance: alert, in no apparent distress Respiratory exam: Present: normal lung sounds bilaterally. Absent: respiratory distress, wheezes, rales, rhonchi, stridor Cardiovascular Exam: Present: regular rate, normal rhythm, normal heart sounds. Absent: systolic murmur, diastolic murmur, rubs, gallop, clicks Extremities exam: Present: other (2 cm laceration noted to the palmar aspect of left second digit in between the MCP and DIP joint. No active bledding. sensation intact.) Neurological exam: Present: alert, oriented X3, CN II-XII intact Psychiatric exam: Present: normal affect, normal mood Course Vital Signs 10/31/23 11:45 Temperature 98 F Pulse Rate 56 L Respiratory 18 Rate Blood Pressure 160/82 O2 Sat by Pulse 98 Oximetry Medical Decision Making - Medical Decision Making Was pt. sent in by a medical professional or institution (, SOFYA, AERIAL PHOTOGRAMMETRIST, urgent care, hospital, or halfway...) When possible be specific @ -No Did you speak to anyone other than the patient for history (EMS, parent, family, police, friend...)? What history was obtained from this source @ - Did you review nursing and triage notes (agree or disagree)? Why? @ -I reviewed and agree with nursing and triage notes Were old charts reviewed (outside hosp., previous admission, EMS record, old EKG, old radiological studies, urgent care reports/EKG's, halfway records)? Report findings @ -No old charts were reviewed Differential Diagnosis (chest pain, altered mental status, abdominal pain women, abdominal pain men, vaginal bleeding, weakness, fever, dyspnea, syncope, headache, dizziness, GI bleed, back pain, seizure, CVA, palpatations, mental health, musculoskeletal)? @ -Laceration, abrasion, contusion EKG interpreted by me (3pts min.). @ -None X-rays interpreted by me (1pt min.). @ -None done CT interpreted by me (1pt min.). @ -None done U/S interpreted by me (1pt. min.). @ -None done What testing was considered but not performed or refused? (CT, X-rays, U/S, labs)? Why? @ -None What meds were considered but not given or refused? Why? @ -None Did you discuss the management of the patient with other professionals (professionals i.e. SOFYA Reynaga, AERIAL PHOTOGRAMMETRIST, lab, RT, psych nurse, social media project manager, assignment officer, teacher, lead security officer, case picker)? Give summary @ -No Was smoking cessation discussed for >3mins.? @ -No Was critical care preformed (if so, how long)? @ -No Were there social determinants of health that impacted care today? How? (Homelessness, low income, unemployed, alcoholism, drug addiction, transportation, low edu. Level, literacy, decrease access to med. care, assisted, rehab)? @ -No Was there de-escalation of care discussed even if they declined (Discuss DNR or withdrawal of care, Hospice)? DNR status @ -No What co-morbidities impacted this encounter? (DM, HTN, Smoking, COPD, CAD, Cancer, CVA, ARF, Chemo, Hep., AIDS, mental health diagnosis, sleep apnea, morbid obesity)? @ -None Was patient admitted / discharged? Hospital course, mention meds given and route, prescriptions, significant lab abnormalities, going to OR and other pertinent info. @ -Discharge. Patient is an 83-year-old male presented ER with chief complaint of a laceration. Patient's tetanus status is unknown. Vital signs remained stable. Physical exam was significant for 2 cm laceration noted to second left digit. No active bleeding was noticed. Due to the timeframe of injury and presentation to ER, sutures are not appropriate due to risk of infection. I cleaned the area with alcohol wipe and placed Steri-Strips over the wound. Patient was sent home with a finger splint to help prevent the wound from reopening with movement of his finger. I discussed with patient return parameters. Patient received tetanus vaccination. Patient was discharged in stable condition with follow-up to PCP. Patient expressed understanding and agreement with care plan. Undiagnosed new problem with uncertain prognosis? @ -No Drug Therapy requiring intensive monitoring for toxicity (Heparin, Nitro, Insulin, Cardizem)? @ -No Were any procedures done? @ -No Diagnosis/symptom? @ -Laceration Acute, or Chronic, or Acute on Chronic? @ -Acute Uncomplicated (without systemic symptoms) or Complicated (systemic symptoms)? @ -Uncomplicated Side effects of treatment? @ -No Exacerbation, Progression, or Severe Exacerbation? @ -No Poses a threat to life or bodily function? How? (Chest pain, USA, [place], pneumonia, PE, COPD, DKA, ARF, appy, cholecystitis, CVA, Diverticulitis, Homicidal, Suicidal, threat to staff... and all critical care pts) @ -No Disposition Clinical Impression: Laceration Disposition: HOME SELF-CARE Condition: Stable Additional Instructions: Please return to the Emergency Department if symptoms worsen or any other concerns. Is patient prescribed a controlled substance at d/c from ED?: No Referrals: Delonte Corbin MD [Primary Care Provider] - 1-2 days Time of Disposition: 12:23
== END 2023-10-31 12:42 | disposition home or self-care (01) ==
LOC: EC 11:17
DX: S61.211A Laceration without foreign body of left index finger without damage to nail, initial encounter (principal); I10 Essential (primary) hypertension; K21.9 Gastro-esophageal reflux disease without esophagitis; I25.10 Atherosclerotic heart disease of native coronary artery without angina pectoris; M19.90 Unspecified osteoarthritis, unspecified site; E78.5 Hyperlipidemia, unspecified; E03.9 Hypothyroidism, unspecified; Z23 Encounter for immunization; Z79.82 Long term (current) use of aspirin; Z79.890 Hormone replacement therapy; Z79.899 Other long term (current) drug therapy; W26.8XXA Contact with other sharp object(s), not elsewhere classified, initial encounter
CPT/HCPCS: 90471; 90715; 99282

== ENCOUNTER 2023-11-05 11:03 | Emergency (ER) | payer MEDICARE ==
[2023-11-05 11:38] VITALS: BP 186/83; PULSE 54; TEMP 98.2
--- NOTE | 2023-11-05 11:53 | ED ---
Wound/Laceration HPI - General Chief Complaint: Wound/Laceration Stated Complaint: finger laceration Time Seen by Provider: 11/05/23 11:32 Source: patient, family, RN notes reviewed Mode of arrival: ambulatory Limitations: no limitations - History of Present Illness Initial Comments: Patient is an 83-year-old male presented ER with chief complaint of wound check. Patient was seen here on [id number] for a laceration cause biological manager of internal. Patient received tetanus vaccination at that visit. Due to timeframe of injury and presentation to ER. Sutures were not placed. Patient states he has changed the Band-Aid 2 days after ER visit and there was blood upon removing the Steri- Strips. Patient states he replaced Steri-Strips and removed them this morning and noticed there was still blood noticed on the wound. Patient denies any increasing redness, swelling, pain, decreased in range of motion, fevers, chills, night sweats. Patient presents to the ER to make sure it is not infected and is healing properly. - Related Data Home Medications Medication Instructions Recorded Confirmed amLODIPine [Norvasc] 5 mg PO HS 12/11/14 11/30/19 Cholecalciferol [Vitamin D3 (25 5,000 unit PO DAILY 02/05/15 11/30/19 Mcg = 1000 Iu)] Ubidecarenone [Co Q-10] 100 mg PO DAILY 02/05/15 11/30/19 [place]-3 Fatty Acids/Fish Oil [Fish 1 cap PO DAILY 09/19/15 11/30/19 Oil 1,000 mg Softgel] Losartan Potassium [Cozaar] 100 mg PO DAILY 10/28/16 11/30/19 Nitroglycerin Sl Tabs [Nitrostat] 0.4 mg SUBLINGUAL Q5M PRN 10/28/16 11/30/19 Calcium Carbonate [Tums] 500 - 1,000 tab PO DAILY PRN 10/20/17 11/30/19 Isosorbide Mononitrate ER [Imdur] 30 mg PO DAILY 10/20/17 11/30/19 Aspirin [Adult Low Dose Aspirin EC] 81 mg PO BID 03/18/19 11/30/19 Metabolic Synergy 1 tab PO DAILY 03/18/19 11/30/19 Levothyroxine Sodium [Synthroid] 112 mcg PO DAILY 11/30/19 11/30/19 Pitavastatin Calcium [Livalo] 4 mg PO HS 11/30/19 11/30/19 Allergies Allergy/AdvReac Type Severity Reaction Status Date / Time No Known Allergies Allergy Verified 11/05/23 11:28 Review of Systems ROS Statement: Those systems with pertinent positive or pertinent negative responses have been documented in the HPI. ROS Other: All systems not noted in ROS Statement are negative. Past Medical History Past Medical History: Coronary Artery Disease (CAD), Chest Pain / Angina, GERD/Reflux, Hyperlipidemia, Hypertension, Osteoarthritis (OA), Sleep Apnea/CPAP/BIPAP, Thyroid Disorder Additional Past Medical History / Comment(s): NO TX FOR SLEEP APNEA. OCC GERD R/T DIET; HX DIVERTICULITIS X1. shingles, hypothyroid History of Any Multi-Drug Resistant Organisms: None Reported Past Surgical History: Appendectomy, Heart Catheterization With Stent, Orthopedic Surgery, Tonsillectomy Additional Past Surgical History / Comment(s): 09-14-15 total lt knee replacment. ACCORDING TO PATIENT, AFTER HIS LAST KNEE SURGERY, HE DID NOT FEEL WELL AFTER, WITHIN A WEEK OR TWO, HIS APPENDIX HAD RUPTURED AND HAD AN APPENDECTOMY (HAD COMPLICATIONS WITH VERY HIGH BLOOD PRESSURE DURING THIS ILLNESS. HEART CATH X2, STENT X1 EACH. RONY CTR, RONY CUBITAL TUNNEL RELEASE ELBOWS. RT KNEE SCOPE 2011. LT KNEE ARTHROSCOPIC 12/2014. RT ROTATOR CUFF 09/26/2014. carpel tunnel bilat and trigger finger sx Past Anesthesia/Blood Transfusion Reactions: Motion Sickness Date of Last Stent Placement:: 2004 Past Psychological History: No Psychological Hx Reported Smoking Status: Never smoker Past Alcohol Use History: None Reported Past Drug Use History: None Reported - Past Family History Mother Family Medical History: Coronary Artery Disease (CAD), Hyperlipidemia Additional Family Medical History / Comment(s): heart stents, quadruple bypass,rony dry macular degeneration Father Family Medical History: Liver Disease Additional Family Medical History / Comment(s): etoh abuse General Exam Limitations: no limitations General appearance: alert, in no apparent distress Head exam: Present: atraumatic, normocephalic, normal inspection Respiratory exam: Present: normal lung sounds bilaterally. Absent: respiratory distress, wheezes, rales, rhonchi, stridor Cardiovascular Exam: Present: regular rate, normal rhythm, normal heart sounds. Absent: systolic murmur, diastolic murmur, rubs, gallop, clicks Neurological exam: Present: alert, oriented X3, CN II-XII intact Psychiatric exam: Present: normal affect, normal mood Skin exam: Present: warm, dry, intact, other (1 cm healing wound noted on left second digit. Wound is located in between the MCP and PIP joint. Granulation tissue is present. No active bleeding. Full active ROM. No tenderness or purulent drainage noted.) Course Vital Signs 11/05/23 11/05/23 11:26 11:59 Temperature 98.2 F Pulse Rate 54 L Respiratory 18 16 Rate Blood Pressure 186/83 O2 Sat by Pulse 100 Oximetry Medical Decision Making - Medical Decision Making Was pt. sent in by a medical professional or institution (, PA, CHIROPRACTIC TEACHER, urgent care, hospital, or senior living...) When possible be specific @ -No Did you speak to anyone other than the patient for history (EMS, parent, family, police, friend...)? What history was obtained from this source @ - Did you review nursing and triage notes (agree or disagree)? Why? @ -I reviewed and agree with nursing and triage notes Were old charts reviewed (outside hosp., previous admission, EMS record, old EKG, old radiological studies, urgent care reports/EKG's, senior living records)? Report findings @ -Yes, I reviewed charts from 10/31/23. Patient received tetanus vaccination and Steri-Strips were placed over wound for closure. Differential Diagnosis (chest pain, altered mental status, abdominal pain women, abdominal pain men, vaginal bleeding, weakness, fever, dyspnea, syncope, headache, dizziness, GI bleed, back pain, seizure, CVA, palpatations, mental health, musculoskeletal)? @ -Cellulitis, laceration, infection EKG interpreted by me (3pts min.). @ -None X-rays interpreted by me (1pt min.). @ -None done CT interpreted by me (1pt min.). @ -None done U/S interpreted by me (1pt. min.). @ -None done What testing was considered but not performed or refused? (CT, X-rays, U/S, labs)? Why? @ -None What meds were considered but not given or refused? Why? @ -None Did you discuss the management of the patient with other professionals (professionals i.e. SOFYA Reynaga, CHIROPRACTIC TEACHER, lab, RT, psych nurse, social media editor, manager of internal, teacher, attendance officer, rifle case repairer)? Give summary @ -No Was smoking cessation discussed for >3mins.? @ -No Was critical care preformed (if so, how long)? @ -No Were there social determinants of health that impacted care today? How? (Homelessness, low income, unemployed, alcoholism, drug addiction, transportation, low edu. Level, literacy, decrease access to med. care, senior living, rehab)? @ -No Was there de-escalation of care discussed even if they declined (Discuss DNR or withdrawal of care, Hospice)? DNR status @ -No What co-morbidities impacted this encounter? (DM, HTN, Smoking, COPD, CAD, Cancer, CVA, ARF, Chemo, Hep., AIDS, mental health diagnosis, sleep apnea, mor bid obesity)? @ -CAD patient is on blood thinners Was patient admitted / discharged? Hospital course, mention meds given and route, prescriptions, significant lab abnormalities, going to OR and other pertinent info. @ -Discharge. Patient is an 83-year-old male presented ER with chief complaint of a wound check. Upon examination, patient's vital signs are stable. Physical exam was significant for a 1 cm healing wound noted on left second digit in between the MCP and PIP joint. Patient was neurovascularly intact. There is no active bl eeding or purulent drainage present. Granulation tissue present. Patient had full active range of motion of digit. I discussed with patient that the wound is healing very nicely and there are no signs of infection. I advised him due to being on blood thinners he may have mild bleeding with removal of Steri- Strips since you are removing scab that has formed. I educated patient that he should continue to clean wound with warm soapy water daily and keep area clean and dry. I advised he should monitor for any signs of infection. Wound was wrapped with Steri-strips and gauze prior to discharge. Patient received tetanus vaccination last ER visit on 10/31/23. Return parameters were discussed. Patient will be discharged in stable condition with follow-up to PCP. Patient expressed understanding and agreement with care plan. Undiagnosed new problem with uncertain prognosis? @ -No Drug Therapy requiring intensive monitoring for toxicity (Heparin, Nitro, Insulin, Cardizem)? @ -No Were any procedures done? @ -No Diagnosis/symptom? @ -Wound check Acute, or Chronic, or Acute on Chronic? @ -Acute Uncomplicated (without systemic symptoms) or Complicated (systemic symptoms)? @ -Uncomplicated Side effects of treatment? @ -No Exacerbation, Progression, or Severe Exacerbation? @ -No Poses a threat to life or bodily function? How? (Chest pain, USA, [place], pneumonia, PE, COPD, DKA, ARF, appy, cholecystitis, CVA, Diverticulitis, Homicidal, Suicidal, threat to staff... and all critical care pts) @ -No Disposition Clinical Impression: Visit for wound check Disposition: HOME SELF-CARE Condition: Stable Instructions (If sedation given, give patient instructions): Laceration (ED) Additional Instructions: Please return to the Emergency Department if symptoms worsen or any other concerns. Is patient prescribed a controlled substance at d/c from ED?: No Referrals: Delonte Corbin MD [Primary Care Provider] - 1-2 days Time of Disposition: 11:53
[2023-11-05 12:03] VITALS: RESP 16
== END 2023-11-05 12:02 | disposition home or self-care (01) ==
LOC: EC 11:03
DX: Z48.00 Encounter for change or removal of nonsurgical wound dressing (principal); I25.10 Atherosclerotic heart disease of native coronary artery without angina pectoris; I10 Essential (primary) hypertension; E78.5 Hyperlipidemia, unspecified; E03.9 Hypothyroidism, unspecified; M19.90 Unspecified osteoarthritis, unspecified site; Z79.890 Hormone replacement therapy; Z79.82 Long term (current) use of aspirin; Z79.899 Other long term (current) drug therapy
CPT/HCPCS: 99283

== ENCOUNTER 2024-03-13 22:16 | Observation (INO) | payer MEDICARE ==
--- NOTE | 2024-03-13 23:11 | ED ---
Chest Pain HPI - General Chief Complaint: Chest Pain Stated Complaint: Chest Pain Time Seen by Provider: 03/13/24 22:20 Source: EMS Mode of arrival: EMS - History of Present Illness MD Complaint: chest pain Onset/Timin -: hour(s) Onset: during rest Pain Location: right chest Pain Radiation: none Severity: moderate Quality: other (Pressure) Consistency: now resolved Improves With: nitroglycerin Worsens With: nothing Treatments Prior to Arrival: aspirin, nitroglycerin - Related Data Home Medications Medication Instructions Recorded Confirmed amLODIPine [Norvasc] 5 mg PO HS 12/11/14 11/30/19 Cholecalciferol [Vitamin D3 (25 5,000 unit PO DAILY 02/05/15 11/30/19 Mcg = 1000 Iu)] Ubidecarenone [Co Q-10] 100 mg PO DAILY 02/05/15 11/30/19 [place]-3 Fatty Acids/Fish Oil [Fish 1 cap PO DAILY 09/19/15 11/30/19 Oil 1,000 mg Softgel] Losartan Potassium [Cozaar] 100 mg PO DAILY 10/28/16 11/30/19 Nitroglycerin Sl Tabs [Nitrostat] 0.4 mg SUBLINGUAL Q5M PRN 10/28/16 11/30/19 Calcium Carbonate [Tums] 500 - 1,000 tab PO DAILY PRN 10/20/17 11/30/19 Isosorbide Mononitrate ER [Imdur] 30 mg PO DAILY 10/20/17 11/30/19 Aspirin [Adult Low Dose Aspirin EC] 81 mg PO BID 03/18/19 11/30/19 Metabolic Synergy 1 tab PO DAILY 03/18/19 11/30/19 Levothyroxine Sodium [Synthroid] 112 mcg PO DAILY 11/30/19 11/30/19 Pitavastatin Calcium [Livalo] 4 mg PO HS 11/30/19 11/30/19 Allergies Allergy/AdvReac Type Severity Reaction Status Date / Time No Known Allergies Allergy Verified 03/13/24 22:28 Review of Systems ROS Statement: Those systems with pertinent positive or pertinent negative responses have been documented in the HPI. ROS Other: All systems not noted in ROS Statement are negative. Constitutional: Denies: fever, chills Respiratory: Denies: cough, dyspnea Cardiovascular: Reports: chest pain. Denies: palpitations, orthopnea, edema, syncope Gastrointestinal: Denies: abdominal pain, nausea, vomiting, diarrhea Genitourinary: Denies: dysuria, hematuria Musculoskeletal: Denies: back pain Skin: Denies: rash Neurological: Denies: headache, weakness, numbness EKG Findings - EKG Results: EKG: interpreted by DIANAD, sinus rhythm (With sinus arrhythmia rate 78 bpm), normal axis, normal QRS - Blocks, [place], Hypertrophy, ST Abn: Repolarization changes or abnormalities: nonspecific abnormality, ST segment, and/or T wave Past Medical History Past Medical History: Coronary Artery Disease (CAD), Chest Pain / Angina, GERD/Reflux, Hyperlipidemia, Hypertension, Osteoarthritis (OA), Sleep Apnea/CPAP/BIPAP, Thyroid Disorder Additional Past Medical History / Comment(s): NO TX FOR SLEEP APNEA. OCC GERD R/T DIET; HX DIVERTICULITIS X1. shingles, hypothyroid History of Any Multi-Drug Resistant Organisms: None Reported Past Surgical History: Appendectomy, Heart Catheterization With Stent, Orthopedic Surgery, Tonsillectomy Additional Past Surgical History / Comment(s): 09-14-15 total lt knee replacmen t. ACCORDING TO PATIENT, AFTER HIS LAST KNEE SURGERY, HE DID NOT FEEL WELL AFTER, WITHIN A WEEK OR TWO, HIS APPENDIX HAD RUPTURED AND HAD AN APPENDECTOMY (HAD COMPLICATIONS WITH VERY HIGH BLOOD PRESSURE DURING THIS ILLNESS. HEART CATH X2, STENT X1 EACH. RONY CTR, RONY CUBITAL TUNNEL RELEASE ELBOWS. RT KNEE SCOPE 2011. LT KNEE ARTHROSCOPIC 12/2014. RT ROTATOR CUFF 09/26/2014. carpel tunnel bilat and trigger finger sx Past Anesthesia/Blood Transfusion Reactions: Motion Sickness Date of Last Stent Placement:: 2004 Past Psychological History: No Psychological Hx Reported Smoking Status: Never smoker Past Alcohol Use History: None Reported Past Drug Use History: None Reported - Past Family History Mother Family Medical History: Coronary Artery Disease (CAD), Hyperlipidemia Additional Family Medical History / Comment(s): heart stents, quadruple bypass,rony dry macular degeneration Father Family Medical History: Liver Disease Additional Family Medical History / Comment(s): etoh abuse General Exam General appearance: alert, in no apparent distress Head exam: Present: atraumatic, normocephalic Eye exam: Present: normal appearance. Absent: scleral icterus, conjunctival injection ENT exam: Present: normal oropharynx Neck exam: Present: normal inspection Respiratory exam: Present: normal lung sounds bilaterally. Absent: respiratory distress, wheezes, rales, rhonchi, stridor, chest wall tenderness, accessory muscle use Cardiovascular Exam: Present: regular rate, normal rhythm, normal heart sounds. Absent: systolic murmur, diastolic murmur, rubs, gallop GI/Abdominal exam: Present: soft. Absent: distended, tenderness, guarding, rebound, rigid, mass Extremities exam: Present: normal inspection, normal capillary refill. Absent: pedal edema, calf tenderness Back exam: Present: normal inspection. Absent: CVA tenderness (R), CVA tenderness (L) Neurological exam: Present: alert Skin exam: Present: warm, dry, intact, normal color. Absent: rash Course Vital Signs 03/13/24 03/13/24 22:19 22:33 Temperature 97.5 F L Pulse Rate 76 Pulse Rate [ 89 Right Sitting Radial] Respiratory 18 Rate Blood Pressure 176/95 O2 Sat by Pulse 98 Oximetry Chest Pain MDM - MDM Patient had chest x-ray that I interpreted as negative for acute pneumothorax, infiltrate, congestive heart failure. Disposition Referrals: Delonte Corbin MD [Primary Care Provider] - 1-2 days
--- NOTE | 2024-03-14 00:12 | XR ---
EXAM: XR Chest, 2 Views CLINICAL HISTORY: ITS.REASON XR Reason: Chest Pain TECHNIQUE: Frontal and lateral views of the chest. COMPARISON: 12/06/2020 FINDINGS: Lungs: No consolidation. No overt edema. Pleural space: No pleural effusion. No pneumothorax. Heart: Unremarkable. No cardiomegaly. Bones/joints: Unremarkable. No fracture or malalignment. IMPRESSION: No acute cardiopulmonary abnormality.
[2024-03-14 00:32] LABS: Basophils # (A) 0.1 k/uL (0-0.2); Basophils % (A) 1 %; Eosinophils % (A) 0 %; HCT 34.4 % (39.0-53.0); HGB 10.8 gm/dL (13.0-17.5); Lymphocytes # (A) 1.2 k/uL (1.0-4.8); Lymphocytes % (A) 18 %; MCH 28.9 pg (25.0-35.0); MCHC 31.5 g/dL (31.0-37.0); MCV 91.9 fL (80.0-100.0); Mean Platelet Volume 9.2; Monocytes # (A) 0.3 k/uL (0-1.0); Monocytes % (A) 5 %; Neutrophils # (A) 4.7 k/uL (1.3-7.7); Neutrophils % (A) 75 %; Platelet Count 202 k/uL (150-450); RBC 3.74 m/uL (4.30-5.90); WBC 6.3 k/uL (3.8-10.6)
[2024-03-14 00:44] LABS: ALT 27 U/L (4-49); AST 30 U/L (17-59); African American GFR (CKD) >90 (>60 ml/min/1.73 sqM); Albumin 4.2 g/dL (3.5-5.0); Alkaline Phosphatase 70 U/L (38-126); Anion Gap 10 mmol/L; Blood Urea Nitrogen 28 mg/dL (9-20); Calcium 8.8 mg/dL (8.4-10.2); Carbon Dioxide 19 mmol/L (22-30); Chloride 111 mmol/L (98-107); Glucose 203 mg/dL (74-99); Magnesium 2.2 mg/dL (1.6-2.3); Non-African American GFR(CKD) 87 (>60 ml/min/1.73 sqM); Potassium 3.7 mmol/L (3.5-5.1); Sodium 140 mmol/L (137-145); Total Bilirubin 0.4 mg/dL (0.2-1.3); Total Protein 6.8 g/dL (6.3-8.2)
[2024-03-14 00:49] LABS: Prothrombin Time 11.2 sec (10.0-12.5)
[2024-03-14 00:50] LABS: Partial Thromboplastin Time 22.2 sec (22.0-30.0)
[2024-03-14] MEDS ORDERED: NITROGLYCERIN SL TABS 0.4 MG TAB SUBLINGUAL PRN (02:19)
[2024-03-14] MEDS ORDERED: CALCIUM CARBONATE 500 MG CHEWABLE PO PRN (02:23)
[2024-03-14] MEDS: MORPHINE SULFATE 4 MG/ML SYRINGE IV STA (02:51)
[2024-03-14] MEDS: NITROGLYCERIN OINT 1 INCH/GM PACKET TOPICAL STA (02:54)
[2024-03-14] MEDS: HEPARIN SODIUM 1,000 UN/ML (10ML VL) IV ONE (02:55)
[2024-03-14] MEDS: HEPARIN SOD,PORK IN 0.45% NACL 25,000 UNIT in 0.45% NACL 1 250ML.BAG IV SCH (02:58)
[2024-03-14] MEDS: SODIUM CHLORIDE 0.9% 1,000 ML IV SCH ×2 (03:00→13:13)
[2024-03-14 03:53] LABS: Mean Platelet Volume 9.1; Platelet Count 195 k/uL (150-450)
[2024-03-14] MEDS ORDERED: LEVOTHYROXINE 112 MCG TAB PO SCH (07:00)
[2024-03-14] MEDS ORDERED: ONDANSETRON 4 MG/2 ML VIAL IVP PRN (11:26)
[2024-03-14] MEDS ORDERED: NALOXONE 0.4 MG/ML 1 ML VIAL IV PRN (11:26)
[2024-03-14] MEDS: ISOSORBIDE MONONITRATE ER 60 MG TAB.ER.24H PO SCH (12:17)
[2024-03-14] MEDS: CHOLECALCIFEROL 25 MCG (1000 IU) TABLET PO SCH (12:17)
[2024-03-14] MEDS: CLOPIDOGREL 75 MG TAB PO SCH (12:18)
[2024-03-14] MEDS: LOSARTAN 50 MG TAB PO SCH (12:19)
[2024-03-14] MEDS: ATORVASTATIN 10 MG TAB PO SCH (12:19)
[2024-03-14] MEDS ORDERED: FAMOTIDINE 20 MG TAB PO SCH (12:56)
[2024-03-14] MEDS: FAMOTIDINE 20 MG TAB PO SCH ×2 (13:09→13:20)
[2024-03-14] MEDS: predniSONE 10 MG TAB PO SCH ×2 (13:09→13:20)
[2024-03-14] MEDS: ASPIRIN 81 MG PO SCH (13:09)
[2024-03-14] MEDS: RANOLAZINE 500 MG TAB.ER.12H PO SCH (13:11)
[2024-03-14] MEDS: ISOSORBIDE MONONITRATE ER 30 MG TAB.ER.24H PO SCH (13:20)
--- NOTE | 2024-03-14 14:28 | P.HPIM ---
History of Present Illness H&P Date: 03/14/24 Chief Complaint: Chest pain * 83-year-old gentleman with past medical history significant for coronary artery disease s/p PCI several years ago, hypertension, hyperlipidemia, o bstructive sleep apnea, gastroesophageal reflux disease presents to the emergency department with complaints of chest pain, patient had symptom onset 2 hours prior to arrival patient complained of right-sided chest discomfort moderate in intensity, resolved with nitroglycerin. Prior to admission robbi cancino took aspirin and nitroglycerin as well. Workup initiated in ER included a chest x-ray that was negative for acute intrathoracic process, EKG was obtained which showed sinus rhythm normal axis normal QRS no significant ST segment changes nonspecific ST segment abnormalities were noted * Blood work obtained in ER include CBC which showed WBC of 6.3 hemoglobin 10.8 platelet count of 202, INR of 1 * Serum chemistry showed sodium 140 potassium 3.7, dioxide 19 BUN 28 creatinine 0.73 glucose 208 * Serial troponins were obtained which remain negative * To be admitted to medical floor with consultation from cardiology REVIEW OF SYSTEMS: Chest pain CONSTITUTIONAL: No fever, no malaise, no fatigue. HEENT: No recent visual problems or hearing problems. Denied any sore throat. CARDIOVASCULAR: Chest pain, no orthopnea, PND, no palpitations, no syncope. PULMONARY: No shortness of breath, no cough, no hemoptysis. GASTROINTESTINAL: No diarrhea, no nausea, no vomiting, no abdominal pain. NEUROLOGICAL: No headaches, no weakness, no numbness. HEMATOLOGICAL: Denies any bleeding or petechiae. GENITOURINARY: Denies any burning micturition, frequency, or urgency. MUSCULOSKELETAL/RHEUMATOLOGICAL: Denies any joint pain, swelling, or any muscle pain. ENDOCRINE: Denies any polyuria or polydipsia. PHYSICAL EXAMINATION: GENERAL: The patient is alert and oriented x3, not in any acute distress. Well developed, well nourished. HEENT: Pupils are round and equally reacting to light. EOMI. No scleral icterus. No conjunctival pallor. Normocephalic, atraumatic. No pharyngeal erythema. No thyromegaly. CARDIOVASCULAR: S1 and S2 present. No murmurs, rubs, or gallops. PULMONARY: Chest is clear to auscultation, no wheezing or crackles. ABDOMEN: Soft, nontender, nondistended, normoactive bowel sounds. No palpable organomegaly. MUSCULOSKELETAL: No joint swelling or deformity. EXTREMITIES: No cyanosis, clubbing, or pedal edema. NEUROLOGICAL: Gross neurological examination did not reveal any focal deficits. SKIN: No rashes. Assessment and plan * Coronary artery disease with recurrent angina * Hypertension * hypothyroid * Hyperlipidemia * In regards to chest pain, patient started on IV heparin, cardiology consulted continue medical management with aspirin, Plavix, amlodipine, Imdur, Ranexa * In regards to hypertension continue patient on amlodipine, losartan * Echocardiogram ordered * CODE STATUS is full code Past Medical History Past Medical History: Coronary Artery Disease (CAD), Chest Pain / Angina, GERD/Reflux, Hyperlipidemia, Hypertension, Osteoarthritis (OA), Sleep Apnea/CPAP/BIPAP, Thyroid Disorder Additional Past Medical History / Comment(s): NO TX FOR SLEEP APNEA. OCC GERD R/T DIET; HX DIVERTICULITIS X1. shingles, hypothyroid History of Any Multi-Drug Resistant Organisms: None Reported Past Surgical History: Appendectomy, Heart Catheterization With Stent, Orthopedic Surgery, Tonsillectomy Additional Past Surgical History / Comment(s): 09-14-15 total lt knee replacment. ACCORDING TO PATIENT, AFTER HIS LAST KNEE SURGERY, HE DID NOT FEEL WELL AFTER, WITHIN A WEEK OR TWO, HIS APPENDIX HAD RUPTURED AND HAD AN APPENDECTOMY (HAD COMPLICATIONS WITH VERY HIGH BLOOD PRESSURE DURING THIS ILLNESS. HEART CATH X2, STENT X1 EACH. RONY CTR, RONY CUBITAL TUNNEL RELEASE ELBOWS. RT KNEE SCOPE 2011. LT KNEE ARTHROSCOPIC 12/2014. RT ROTATOR CUFF 09/26/2014. carpel tunnel bilat and trigger finger sx Past Anesthesia/Blood Transfusion Reactions: Motion Sickness Date of Last Stent Placement:: 2004 EST Past Psychological History: No Psychological Hx Reported Smoking Status: Never smoker Past Alcohol Use History: None Reported Past Drug Use History: None Reported - Past Family History Mother Family Medical History: Coronary Artery Disease (CAD), Hyperlipidemia Additional Family Medical History / Comment(s): heart stents, quadruple bypass,rony dry macular degeneration Father Family Medical History: Liver Disease Additional Family Medical History / Comment(s): etoh abuse Medications and Allergies Home Medications Medication Instructions Recorded Confirmed Type amLODIPine [Norvasc] 5 mg PO HS 12/11/14 03/14/24 History [place]-3 Fatty Acids/Fish Oil [Fish 1 cap PO DAILY 09/19/15 03/14/24 History Oil 1,000 mg Softgel] Losartan Potassium [Cozaar] 100 mg PO DAILY 10/28/16 03/14/24 History Nitroglycerin Sl Tabs [Nitrostat] 0.4 mg SUBLINGUAL Q5M PRN 10/28/16 03/14/24 History Isosorbide Mononitrate ER [Imdur] 30 mg PO DAILY 10/20/17 03/14/24 History Aspirin [Adult Low Dose Aspirin EC] 81 mg PO DAILY 03/18/19 03/14/24 History Metabolic Synergy 1 tab PO BID 03/18/19 03/14/24 History Levothyroxine Sodium [Synthroid] 112 mcg PO MOTUWETHFRSA 11/30/19 03/14/24 History Pitavastatin Calcium [Livalo] 2 mg PO DAILY 11/30/19 03/14/24 History Cholecalciferol [Vitamin D3 (125 125 mcg PO DAILY 03/14/24 03/14/24 History Mcg = 5000 Iu)] Clopidogrel [Plavix] 75 mg PO DAILY 03/14/24 03/14/24 History Famotidine [Pepcid] 20 mg PO BID 03/14/24 03/14/24 History Ibuprofen [Motrin] 800 mg PO Q8H PRN 03/14/24 03/14/24 History Triamcinolone 0.1% Lotion [Kenalog 1 applic TOPICAL BID PRN 03/14/24 03/14/24 History 0.1% Lotion] predniSONE See Taper PO DIRECTED 03/14/24 03/14/24 History Allergies Allergy/AdvReac Type Severity Reaction Status Date / Time No Known Allergies Allergy Verified 03/14/24 10:04 Physical Exam Vitals: Vital Signs Temp Pulse Pulse Pulse Resp BP BP 03/14/24 08:12 98.1 F 61 16 159/79 03/14/24 06:49 57 L 18 132/71 03/14/24 03:56 59 L 16 150/79 03/14/24 03:00 72 16 163/92 03/13/24 22:33 89 03/13/24 22:19 97.5 F L 76 18 176/95 Pulse Ox 03/14/24 08:12 99 03/14/24 06:49 98 03/14/24 03:56 96 03/14/24 03:00 96 03/13/24 22:33 03/13/24 22:19 98 Intake and Output 03/13/24 03/14/24 03/14/24 22:59 06:59 14:59 Other: Weight 65.317 kg Results CBC & Chem 7: 03/14/24 03:20 03/13/24 23:27 Labs: Abnormal Lab Results - Last 24 Hours (Table) 03/13/24 03/13/24 03/14/24 Range/Units 23:27 23:27 03:20 RBC 3.74 L (4.30-5.90) m/uL Hgb 10.8 L (13.0-17.5) gm/dL Hct 34.4 L (39.0-53.0) % APTT 72.9 H (22.0-30.0) sec Chloride 111 H (98-107) mmol/L Carbon Dioxide 19 L (22-30) mmol/L BUN 28 H (9-20) mg/dL Glucose 203 H (74-99) mg/dL 03/14/24 Range/Units 10:01 RBC (4.30-5.90) m/uL Hgb (13.0-17.5) gm/dL Hct (39.0-53.0) % APTT 41.0 H (22.0-30.0) sec Chloride (98-107) mmol/L Carbon Dioxide (22-30) mmol/L BUN (9-20) mg/dL Glucose (74-99) mg/dL
[2024-03-14 17:20] VITALS: RESP 16
[2024-03-14] MEDS: HEPARIN SODIUM,PORCINE 5,000 UNIT/ML 1 ML VIAL SQ SCH (21:25)
[2024-03-14] MEDS: amLODIPine 5 MG TAB PO SCH (21:25)
--- NOTE | 2024-03-14 21:44 | CONS ---
CONSULTATION CHIEF COMPLAINT: Chest pain. HISTORY OF PRESENT ILLNESS: Robert is an 83-year-old gentleman with history of coronary artery disease, status post multivessel angioplasty, who follows with a chip machine operator out of town, comes into hospital complaining of chest discomfort. He describes it as a right-sided chest pain, intermittent, [id number] intensity, sometimes came on with exertion and most recently was at rest, came to hospital and his pain had responded to sublingual nitroglycerin. At the time of my evaluation, he has had 3 sets of troponins that are negative. EKG did not reveal acute ischemic changes and he is on IV heparin. I talked to him about his treatment options. I advised him to undergo cardiac catheterization for further evaluation. Understanding risks and benefits, the patient wishes to be treated with medical therapy, and if he is doing well, home tomorrow and follow up with his own chip machine operator and pursue it further. I am going to stop the IV heparin at this time, ambulate him and see how he does. I will increase the dose of Imdur and I will add Ranexa for his angina. His EKG shows sinus rhythm with prolonged first-degree AV block and also has PACs. PAST MEDICAL HISTORY: Significant for coronary artery disease, status post multivessel angioplasty; hypertension; and dyslipidemia. MEDICATIONS: At home include; 1. Motrin. 2. Norvasc. 3. Cozaar. 4. Imdur. 5. Plavix. 6. Livalo. 7. Synthroid. 8. Pepcid. 9. Aspirin. 10.Pickerel. ALLERGIES: There are no known drug allergies. FAMILY HISTORY: Negative for premature coronary artery disease. SOCIAL HISTORY: Negative for smoking, EtOH abuse, or drug abuse. REVIEW OF SYSTEMS: review of systems has been performed. Pertinents are as documented. PHYSICAL EXAMINATION: GENERAL: Comfortable at rest. VITAL SIGNS: Stable. CHEST: Reveals good air entry bilaterally. HEART: Reveals first and second heart sounds. No gallop. No murmur. ABDOMEN: Soft, nontender. EXTREMITIES: Did not reveal any edema. Peripheral pulses are felt. ASSESSMENT: Unstable angina in a patient with known coronary artery disease, status post prior angioplasty. PLAN: The patient is on optimal medical therapy. He declined cardiac catheterization. I will obtain a 2D echo on him tomorrow, ambulate him and see how he does, and if he is feeling well and if the echo is benign, we may be able to discharge him home tomorrow and arrange follow up with his own chip machine operator. LAMAR / SUMMER: [id number] /
[2024-03-15] MEDS: LEVOTHYROXINE 112 MCG TAB PO SCH (06:10)
[2024-03-15] MEDS: ACETAMINOPHEN TAB 325 MG TAB PO PRN (08:26)
[2024-03-15] MEDS ORDERED: ASPIRIN 325 MG TAB PO SCH (09:00)
[2024-03-15 10:35] LABS: Platelet Count 222 X 10*3/uL (140-440)
[2024-03-15 10:38] LABS: BUN/Creat Ratio 26.56 Ratio (12.00-20.00); Blood Urea Nitrogen 23.9 mg/dL (9.0-27.0); Carbon Dioxide 22.1 mmol/L (21.6-31.8); Chloride 109 mmol/L (96-109); Glucose 91 mg/dL (70-110); LDL Cholesterol,Calculated 56.6 mg/dL (0.0-131.0); Potassium 4.3 mmol/L (3.5-5.5); Sodium 141 mmol/L (135-145); VLDL Calculation 18.96 mg/dL (5.00-40.00)
[2024-03-15 14:36] VITALS: BP 166/86; PULSE 60; TEMP 97.3
--- NOTE | 2024-03-15 14:56 | P.PN ---
Subjective Progress Note Date: 03/15/24 History of present illness: This is an 83-year-old male with past medical history of coronary artery disease status post multivessel angioplasty follows with a pilates coordinator out of town. Patient presented with chest discomfort in the right side of his chest which was intermittent, mild to moderate intensity, sometimes came on with exertion and most recently was at rest. Patient pain had responded to sublingual nitroglycerin. He has 3 sets of troponins that are negative. EKG did not reveal any acute ischemic changes and he is on IV heparin. He was advised to undergo cardiac catheterization which she declined and wished to pursue medical therapy and plan to go home and follow-up with his own pilates coordinator. His heparin drip was subsequently discontinued and Imdur was increased and Ranexa added. Patient voices frustration that he has been here overnight and wants to be discharged. He states he is going to go soon. He has not had echocardiogram obtained yet. He states he has been feeling well since the Imdur was increased. He states that took the pain away and he has none now. Blood pressure 166/86, heart rate 60, pulse ox 98% on room air. Physical examination: Gen: This is an 83-year-old male in no acute distress VS: reviewed HEENT: Head is atraumatic, normocephalic. Pupils equal, round. Sclerae is anicteric. LUNGS: Clear to auscultation. No wheezes or rhonchi. No intercostal retractions. HEART: Regular rate and rhythm. No murmur. EXTREMITIES: No pedal edema. No calf tenderness. NEUROLOGICAL: Patient is awake, alert and oriented x3. Assessment: Unstable angina with known coronary artery disease with prior angioplasty Hypertension Hyperlipidemia Hypothyroidism Plan: Continue patient's home cardiac medications Continue increased dose of Imdur and added Ranexa Patient is cleared from cardiology for discharge and may follow-up with his primary pilates coordinator in 1 week. Nurse practitioner note has been reviewed, I agree with documented findings and plan of care. Patient was seen and examined. Objective - Vital Signs Vital signs: Vital Signs Temp 97.7 F 03/15/24 07:00 Pulse 50 L 03/15/24 07:00 Resp 16 03/15/24 07:00 BP 172/68 03/15/24 07:00 Pulse Ox 99 03/15/24 07:00 FiO2 Intake & Output 03/14/24 03/15/24 03/15/24 18:59 06:59 18:59 Intake Total 66.362 Balance 66.362 Weight 65.317 kg Intake: Intake, IV Titration 66.362 Amount Heparin Sod,Pork in 0.45% 66.362 NaCl 25,000 unit In 0.45 % NaCl 1 250ml.bag @ 12 UNITS/KG/HR 7.838 mls/hr IV .Q24H [facility] Rx#: [id number] Other: # Voids 4 3 - Labs CBC & Chem 7: 03/15/24 06:48 03/15/24 06:48 Labs: Abnormal Lab Results - Last 24 Hours (Table) 03/14/24 Range/Units 10:01 APTT 41.0 H (22.0-30.0) sec
--- NOTE | 2024-03-15 19:57 | CA ---
Transthoracic Echo Report Name: Robert Singh Age: 83 Gender: M : 1940 Exam Date: 03/15/2024 14:02 Exam Location: [facility] Ht (in): 64 Wt (lb): 144 Ordering Physician: Gabriel Granado MD ([id number]) Attending/Referring Phys: Vannesa KELLEY Manager Organizational Angélica Short RDCS Procedure CPT: Indications: Chest Pain Cardiac Hx: Technical Quality: Fair Contrast 1: Total Dose (mL): Contrast 2: Total Dose (mL): MEASUREMENTS (Male / Female) Normal Values 2D ECHO LV Diastolic Diameter PLAX 3.9 cm 4.2 - 5.9 / 3.9 - 5.3 cm LV Systolic Diameter PLAX 2.2 cm IVS Diastolic Thickness 1.2 cm 0.6 - 1.0 / 0.6 - 0.9 cm LVPW Diastolic Thickness 1.5 cm 0.6 - 1.0 / 0.6 - 0.9 cm LV Relative Wall Thickness 0.7 RV Internal Dim ED PLAX 3.8 cm LA Volume 56.6 cm??? 18 - 58 / 22 - 52 cm??? LA Volume Index 32.7 cm???/m??? 16 - 28 cm???/m??? M-MODE Aortic Root Diameter MM 3.5 cm LA Systolic Diameter MM 3.6 cm LA Ao Ratio MM 1.0 AV Cusp Separation MM 1.9 cm DOPPLER AV Peak Velocity 180.2 cm/s AV Peak Gradient 13.0 mmHg AV Mean Velocity 112.8 cm/s AV Mean Gradient 5.9 mmHg AV Velocity Time Integral 36.9 cm AI Peak Velocity 534.3 cm/s AI Peak Gradient 114.2 mmHg AI Pressure Half Time 770.9 ms LVOT Peak Velocity 148.6 cm/s LVOT Peak Gradient 8.8 mmHg LVOT Velocity Time Integral 37.9 cm MV Area PHT 2.1 cm??? Mitral E Point Velocity 83.9 cm/s Mitral A Point Velocity 114.8 cm/s Mitral E to A Ratio 0.7 MV Deceleration Time 360.3 ms MV E' Velocity 5.6 cm/s Mitral E to MV E' Ratio 14.9 TR Peak Velocity 229.1 cm/s TR Peak Gradient 21.0 mmHg Right Ventricular Systolic Press 25.4 mmHg FINDINGS Left Ventricle Mildly increased left ventricular wall thickness. Left ventricular cavity size normal. Grade 1 diastolic dysfunction. Normal left ventricular systolic function with no obvious regional wall motion abnormalities. Left ventricular ejection fraction is estimated at 55-60 %. Right Ventricle Mild right ventricular dilatation. Right ventricular systolic pressure within normal limits. Right Atrium Normal right atrial size. Left Atrium Mildly increased left atrial volume. Mitral Valve Structurally normal mitral valve. Mitral valve thickened. Mild mitral annular calcification. Mild mitral regurgitation. Aortic Valve Trileaflet aortic valve. No aortic stenosis. Moderate aortic regurgitation. Tricuspid Valve Structurally normal tricuspid valve. Mild tricuspid regurgitation. Pulmonic Valve Structurally normal pulmonic valve. Pericardium No pericardial effusion. Aorta Normal size aortic root and proximal ascending aorta. CONCLUSIONS Normal LV systolic function Moderate aortic insufficiency. The aortic valve is thickened and calcified. Mild aortic stenosis Previewed by: Dr. Hermilo Obrien MD (Electronically Signed) Final Date: 15 March 2024 19:56
== END 2024-03-15 14:56 | disposition home or self-care (01) ==
LOC: EC 22:16 → 6NMEDSUR 03-14 02:20
PROVIDERS: ADMIT Hospitalist; ATTEND Hospitalist
DX: R07.9 Chest pain, unspecified (principal); I25.10 Atherosclerotic heart disease of native coronary artery without angina pectoris; I10 Essential (primary) hypertension; E78.5 Hyperlipidemia, unspecified; G47.33 Obstructive sleep apnea (adult) (pediatric); K21.9 Gastro-esophageal reflux disease without esophagitis; E03.9 Hypothyroidism, unspecified; M19.90 Unspecified osteoarthritis, unspecified site; Z87.19 Personal history of other diseases of the digestive system; E07.9 Disorder of thyroid, unspecified; Z79.899 Other long term (current) drug therapy; Z79.02 Long term (current) use of antithrombotics/antiplatelets; I44.30 Unspecified atrioventricular block; Z79.82 Long term (current) use of aspirin; Z82.49 Family history of ischemic heart disease and other diseases of the circulatory system; Z98.61 Coronary angioplasty status
CPT/HCPCS: 96365; 96366 ×2; 96372 ×3; 99285; 36415; 93005; 93306; 80061; 80053; 80048; 83735; 84484; 85025; 85049 ×2; 85610; 85730; 71046; G0378 ×2; J2270; J1644 ×4

== ENCOUNTER 2024-06-18 14:38 | Emergency (ER) | payer MEDICARE ==
--- NOTE | 2024-06-18 15:08 | ED ---
General Adult HPI - General Source: patient, RN notes reviewed Mode of arrival: ambulatory Limitations: no limitations <Eric Zimmerman - Last Filed: 06/18/24 15:03> <Nola Boston - Last Filed: 06/19/24 14:06> - General Stated complaint: Abdominal Pain Time Seen by Provider: 06/18/24 14:56 - History of Present Illness Initial comments: Quick note 83-year-old male presents emergency room chief complaint of increased abdominal pain. He states has been having frequent episodes pain associated nausea he states that he has been, more frequent. No dysuria no fevers no chest pain (Eric Zimmerman) Patient is a an 83 y/o male PMH CAD, GERD, HTN, HLD, presenting for approximately 3-4 months of intermittent abdominal pain. Patient states he first experienced the abdominal pain in March. He begins to experience a twisting and cramping abdominal pain, so he needs to have a bowel movement and is unable to and then becomes nauseous. He subsequently has multiple episodes of nonbloody nonbilious emesis. This has happened 2-3 times since then. Patient has seen his primary care provider for this and was put on Pepcid and Zofran. Patient states that last night he began having this pain again and had nasuea throughout the morning. He took 2 doses of pepcid and zofran without relief. While in the waiting room his pain spontaneously resolved and he is now asymptomatic. Though noted in triage note, patient denies any type of "tearing" pain and states the pain is more as though something is trying to squeeze his insides. Patient states he has bowel movements approximately 4.5x a week. Stools are sometimes loose and sometimes a large amount and solid. He denies any black or bloody stools. He denies any episodes of associated chest pain or shortness of breath. No fevers or chills. Denies dysuria, endorses urinary frequency at night. Has discussed this with his urologist and was told that his urethra is narrow so he is unable to completely evacuate his bladder. Prior surgical history includes a prior open appendectomy. (Nola Boston) - Related Data Home Medications Medication Instructions Recorded Confirmed Losartan Potassium [Cozaar] 100 mg PO DAILY 10/28/16 06/18/24 Nitroglycerin Sl Tabs [Nitrostat] 0.4 mg SUBLINGUAL Q5M PRN 10/28/16 06/18/24 Aspirin [Adult Low Dose Aspirin EC] 81 mg PO DAILY 03/18/19 06/18/24 Levothyroxine Sodium [Synthroid] 112 mcg PO DAILY 11/30/19 06/18/24 Pitavastatin Calcium [Livalo] 2 mg PO DAILY 11/30/19 06/18/24 Cholecalciferol [Vitamin D3 (125 125 mcg PO DAILY 03/14/24 06/18/24 Mcg = 5000 Iu)] Clopidogrel [Plavix] 75 mg PO DAILY 03/14/24 06/18/24 Famotidine [Pepcid] 20 mg PO BID 03/14/24 06/18/24 Triamcinolone 0.1% Lotion [Kenalog 1 applic TOPICAL BID PRN 03/14/24 06/18/24 0.1% Lotion] Alfuzosin HCl [Alfuzosin HCl ER] 10 mg PO DAILY 06/18/24 06/18/24 Isosorbide Mononitrate ER [Imdur] 30 mg PO DAILY 06/18/24 06/18/24 Ondansetron [Zofran] 8 mg PO BID PRN 06/18/24 06/18/24 amLODIPine [Norvasc] 10 mg PO DAILY 06/18/24 06/18/24 Allergies Allergy/AdvReac Type Severity Reaction Status Date / Time No Known Allergies Allergy Verified 06/18/24 19:38 Review of Systems ROS Other: All systems not noted in ROS Statement are negative. <Eric Zimmerman - Last Filed: 06/18/24 15:03> ROS Other: All systems not noted in ROS Statement are negative. <Nola Boston - Last Filed: 06/19/24 14:06> ROS Statement: Those systems with pertinent positive or pertinent negative responses have been documented in the HPI. Past Medical History Past Medical History: Coronary Artery Disease (CAD), Chest Pain / Angina, GERD/Reflux, Hyperlipidemia, Hypertension, Osteoarthritis (OA), Sleep Apnea/CPAP/BIPAP, Thyroid Disorder Additional Past Medical History / Comment(s): NO TX FOR SLEEP APNEA. OCC GERD R/T DIET; HX DIVERTICULITIS X1. shingles, hypothyroid History of Any Multi-Drug Resistant Organisms: None Reported Past Surgical History: Appendectomy, Heart Catheterization With Stent, Orthopedic Surgery, Tonsillectomy Additional Past Surgical History / Comment(s): 09-14-15 total lt knee replacment. ACCORDING TO PATIENT, AFTER HIS LAST KNEE SURGERY, HE DID NOT FEEL WELL AFTER, WITHIN A WEEK OR TWO, HIS APPENDIX HAD RUPTURED AND HAD AN APPENDECTOMY (HAD COMPLICATIONS WITH VERY HIGH BLOOD PRESSURE DURING THIS ILLNESS. HEART CATH X2, STENT X1 EACH. RONY CTR, RONY CUBITAL TUNNEL RELEASE ELBOWS. RT KNEE SCOPE 2011. LT KNEE ARTHROSCOPIC 12/2014. RT ROTATOR CUFF 09/26/2014. carpel tunnel bilat and trigger finger sx Past Anesthesia/Blood Transfusion Reactions: Motion Sickness Date of Last Stent Placement:: 2004 EST Past Psychological History: No Psychological Hx Reported Smoking Status: Never smoker Past Alcohol Use History: None Reported Past Drug Use History: None Reported - Past Family History Mother Family Medical History: Coronary Artery Disease (CAD), Hyperlipidemia Additional Family Medical History / Comment(s): heart stents, quadruple bypass,rony dry macular degeneration Father Family Medical History: Liver Disease Additional Family Medical History / Comment(s): etoh abuse <Eric Zimmerman - Last Filed: 06/18/24 15:03> General Exam <Eric Zimmerman - Last Filed: 06/18/24 15:03> <Nola Boston - Last Filed: 06/19/24 14:06> - General Exam Comments Initial Comments: Visual Physical Exam Vital signs reviewed General: Well-appearing, nontoxic, no acute distress. Head: Normocephalic, atraumatic Eyes: PERRLA, EOMI ENT: Airway patent Chest: Nonlabored breathing Skin: No visual rash, normal skin tone Neuro: Alert and oriented 3 Musculoskeletal: No gross abnormalities (Eric Zimmerman) PE: CONSTITUTIONAL: No apparent distress, well appearing SKIN: Warm, dry, no jaundice, hives or petechiae EYES: Pupils are equally round, extraocular movements intact without nystagmus, clear conjunctiva, non-icteric sclera HENT: Normocephalic, atraumatic, moist mucus membranes, oropharynx clear without exudates NECK: , Full range of motion, normal appearance, no thyromegaly or masses palpated PULMONARY: Clear to auscultation without wheezes, rhonchi, or rales, normal excursion, no accessory muscle use and no stridor CARDIOVASCULAR: Regular rate, rhythm, normal S1 and S2. No appreciated murmurs, rubs or gallops. extremities well perfused, No lower extremity edema GASTROINTESTINAL: Soft, minimal epigastric TTP, non-distended, no palpable mass es, no rebound; some guarding with palpation of epigastrium, No hepatosplenomegaly MUSCULOSKELETAL: Extremities have no gross deformity, no edema, redness, or swelling. No calf swelling ot TTP. NEUROLOGIC:_a/o x 3, GCS 15, normal mentation and speech. Moves all extremities x 4 without motor or sensory deficit PSYCHIATRIC:_normal mood and affect, thought process is clear and linear (Nola Dacosta) Course Vital Signs 06/18/24 06/18/24 15:22 20:18 Temperature 97.6 F 98.3 F Pulse Rate 59 L 55 L Respiratory 16 17 Rate Blood Pressure 132/77 156/77 O2 Sat by Pulse 99 100 Oximetry Medical Decision Making <Eric Zimmerman - Last Filed: 06/18/24 15:03> - Lab Data Result diagrams: 06/18/24 16:22 06/18/24 16:22 <Nola Boston - Last Filed: 06/19/24 14:06> - Medical Decision Making I completed the quick note portion of this chart signed Eric Zimmerman PA-C (Eric Zimmerman) Was pt. sent in by a medical professional or institution (SOFYA Reynaga, INSTANT PRINTER OPERATOR, urgent care, hospital, or fdc...) When possible be specific @ -No Did you speak to anyone other than the patient for history (EMS, parent, family, police, friend...)? What history was obtained from this source @ -Patient's assists in providing history Did you review nursing and triage notes (agree or disagree)? Why? @ -I reviewed triage notes, I do disagree with the statement that patient described abdominal pain as tearing, patient denied this Were old charts reviewed (outside hosp., previous admission, EMS record, old EKG, old radiological studies, urgent care reports/EKG's, fdc records)? Report findings @ -Reviewed discharge summary from admission 03/06/2024, discharged 03/15/2024, was admitted for chest pain. Serial troponins were negative. Patient discharged home with cardiology follow-up Differential Diagnosis (chest pain, altered mental status, abdominal pain women, abdominal pain men, vaginal bleeding, weakness, fever, dyspnea, syncope, headache, dizziness, GI bleed, back pain, seizure, CVA, palpatations, mental health, musculoskeletal)? @ -differential diagnosis remains broad however top considerations include cholecystitis, diverticulosis/diverticulitis, ischemic bowel, pancreatitis, hepatitis, UTI, gastroenteritis, incarcerated hernia, bowel obstruction, constipation, inflammatory bowel, peptic ulcer disease, this is not meant to be an all-inclusive list CT interpreted by me (1pt min.). @ -liquid stool apparent throughout hepatic flexure of colon, possible haziness surrounding this area, no swirl sign or evidence of volvulus, obstruction or perforation U/S interpreted by me (1pt. min.). @ -None done What testing was considered but not performed or refused? (CT, X-rays, U/S, labs)? Why? @ -None What meds were considered but not given or refused? Why? @ -Considered administering maalox, pepcid, protonix however on my assessment patient pain free Did you discuss the management of the patient with other professionals (professionals i.e. , PA, INSTANT PRINTER OPERATOR, lab, RT, psych nurse, psychiatric social worker supervisor, supervisor boiler repair, teacher, police booking officer, heel caser)? Give summary @ -Discussed with Dr. Galvan, general surgery Was smoking cessation discussed for >3mins.? @ -No Was critical care preformed (if so, how long)? @ -No Were there social determinants of health that impacted care today? How? (Homelessness, low income, unemployed, alcoholism, drug addiction, transportation, low edu. Level, literacy, decrease access to med. care, snf, rehab)? @ -No Was there de-escalation of care discussed even if they declined (Discuss DNR or withdrawal of care, Hospice)? DNR status @ -No What co-morbidities impacted this encounter? (DM, HTN, Smoking, COPD, CAD, Can cer, CVA, ARF, Chemo, Hep., AIDS, mental health diagnosis, sleep apnea, morbid obesity)? @ -HTN, CAD Was patient admitted / discharged? Hospital course, mention meds given and route, prescriptions, significant lab abnormalities, going to OR and other pertinent info. @ -Hospital course patient discharged-patient is a pleasant 83-year-old gentleman presenting today for intermittent abdominal pain that began in March. Prior surgical history of a prior appendectomy. While in the waiting room awaiting completion of workup his pain had resolved. On my assessment patient is comfortable appearing and in no acute distress. Abdomen is soft nondistended without masses, minimal tenderness and guarding with palpation of the epigastrium. Initial labs and imaging were ordered by triage provider. I r eviewed these results personally, CT abdomen and pelvis was read by radiologist with the impression of "some fluid-filled small bowel loops in the right mid abdomen and right lower quadrant with liquid stool in the ascending colon. There may be some subtle mesenteric haziness/inflammation in the right lower quadrant as well. Correlate for nonspecific regional enteritis. Mild pelvic free fluid is abnormal in a male patient may be reactive to the above-mentioned and inflammation. Short interval follow-up if symptoms do not improve. Circumferential bladder wall thickening may be chronic for the patient. Correlate to exclude cystitis. Sigmoid diverticulosis without findings of acute diverticulitis". I reviewed patient's labs, his hemoglobin appears to be at baseline showing mild anemia with a hemoglobin of 12.1 however on 03/13/2024 was 10.8. Patient has no elevated lipase, lipase of 46, lactic is reassuring 0.8, urinalysis without signs of infection does show 1+ ketones and trace protein. I discussed CT findings and patient case with Dr. Campuzano to ensure no additional recommendations for further treatment/workup of findings, Dr. Galvan agreed no further workup in ED necessary however recommends low fiber diet, close follow up with general surgery and to ensure the patient knows to return to the emergency department should his symptoms return. I discussed these findings and my discussion with Dr. Galvan with patient and his . We discussed plan for low fiber diet, pepto bismol, maalox, and pepcid as needed for symptom relief, discussed potential additional causes of abdominal pain and considered IBS as potential cause, as patient's state the patient is under a large amount of stress, discussed that a FODMAP diet may be helpful. Further we discussed that should his symptoms return or become more severe, or should he experience any of the symptoms listed in discharge paperwork, he should return to the ED immediately. Patient and were comfortable with pl an of care In my medical judgment there is currently no evidence of an immediate life- threatening or surgical condition. Discharge is therefore indicated at this time. Discharge treatment instructions, follow up instructions, and appropriate emergency department return precautions were discussed with the patient and/or medical decision maker. Patient and/or medical decision maker expressed un derstanding of and agreed with the treatment plan, follow up instructions, and emergency department return precaution. All patient's and/or medical decision maker's questions were answered. The patient was advised that a small risk still exists that a serious condition could develop and was therefore instructed to return to the ED for any changes in symptoms, persistent symptoms, inability to obtain proper follow-up or for any further concerns. Patient received verbal and written instructions for this condition. Undiagnosed new problem with uncertain prognosis? @ -No Drug Therapy requiring intensive monitoring for toxicity (Heparin, Nitro, Insulin, Cardizem)? @ -No Were any procedures done? @ -No Diagnosis/symptom? @ -Abdominal pain, enteritis Acute, or Chronic, or Acute on Chronic? @ -Acute Uncomplicated (without systemic symptoms) or Complicated (systemic symptoms)? @ -Complicated Side effects of treatment? @ -No Exacerbation, Progression, or Severe Exacerbation? @ -No Poses a threat to life or bodily function? How? (Chest pain, [place], [place], pneumonia, PE, COPD, DKA, ARF, appy, cholecystitis, CVA, Diverticulitis, Homicidal, Suicidal, threat to staff... and all critical care pts) @ -Unlikely (Nola Boston) - Lab Data Lab Results 06/18/24 06/18/24 06/18/24 Range/Units 16:22 16:22 16:22 WBC 9.2 (3.8-10.6) k/uL RBC 4.43 (4.30-5.90) m/uL Hgb 12.1 L (13.0-17.5) gm/dL Hct 37.8 L (39.0-53.0) % MCV 85.5 (80.0-100.0) fL MCH 27.3 (25.0-35.0) pg MCHC 31.9 (31.0-37.0) g/dL RDW 14.2 (11.5-15.5) % Plt Count 219 (150-450) k/uL MPV 8.9 Neutrophils % 80 % Lymphocytes % 14 % Monocytes % 5 % Eosinophils % 0 % Basophils % 0 % Neutrophils # 7.4 (1.3-7.7) k/uL Lymphocytes # 1.3 (1.0-4.8) k/uL Monocytes # 0.4 (0-1.0) k/uL Eosinophils # 0.0 (0-0.7) k/uL Basophils # 0.0 (0-0.2) k/uL Hypochromasia Moderate Sodium 138 (137-145) mmol/L Potassium 4.6 (3.5-5.1) mmol/L Chloride 111 H (98-107) mmol/L Carbon Dioxide 18 L (22-30) mmol/L Anion Gap 9 mmol/L BUN 17 (9-20) mg/dL Creatinine 0.92 (0.66-1.25) mg/dL Est GFR (CKD-EPI)AfAm >90 (>60 ml/min/1.73 sqM) Est GFR (CKD-EPI)NonAf 78 (>60 ml/min/1.73 sqM) Glucose 104 H (74-99) mg/dL Plasma Lactic Acid Yash 0.8 (0.7-2.0) mmol/L Calcium 9.1 (8.4-10.2) mg/dL Total Bilirubin 0.6 (0.2-1.3) mg/dL AST 27 (17-59) U/L ALT 20 (4-49) U/L Alkaline Phosphatase 56 (38-126) U/L Total Protein 7.2 (6.3-8.2) g/dL Albumin 4.6 (3.5-5.0) g/dL Lipase 43 (23-300) U/L Urine Color Urine Appearance (Clear) Urine pH (5.0-8.0) Ur Specific [place] (1.001-1.035) Urine Protein (Negative) Urine Glucose (UA) (Negative) Urine Ketones (Negative) Urine Blood (Negative) Urine Nitrite (Negative) Urine Bilirubin (Negative) Urine Urobilinogen (<2.0) mg/dL Ur Leukocyte Esterase (Negative) Urine WBC (0-5) /hpf Urine Mucus (None) /hpf 06/18/24 Range/Units 16:46 WBC (3.8-10.6) k/uL RBC (4.30-5.90) m/uL Hgb (13.0-17.5) gm/dL Hct (39.0-53.0) % MCV (80.0-100.0) fL MCH (25.0-35.0) pg MCHC (31.0-37.0) g/dL RDW (11.5-15.5) % Plt Count (150-450) k/uL MPV Neutrophils % % Lymphocytes % % Monocytes % % Eosinophils % % Basophils % % Neutrophils # (1.3-7.7) k/uL Lymphocytes # (1.0-4.8) k/uL Monocytes # (0-1.0) k/uL Eosinophils # (0-0.7) k/uL Basophils # (0-0.2) k/uL Hypochromasia Sodium (137-145) mmol/L Potassium (3.5-5.1) mmol/L Chloride (98-107) mmol/L Carbon Dioxide (22-30) mmol/L Anion Gap mmol/L BUN (9-20) mg/dL Creatinine (0.66-1.25) mg/dL Est GFR (CKD-EPI)AfAm (>60 ml/min/1.73 sqM) Est GFR (CKD-EPI)NonAf (>60 ml/min/1.73 sqM) Glucose (74-99) mg/dL Plasma Lactic Acid Yash (0.7-2.0) mmol/L Calcium (8.4-10.2) mg/dL Total Bilirubin (0.2-1.3) mg/dL AST (17-59) U/L ALT (4-49) U/L Alkaline Phosphatase (38-126) U/L Total Protein (6.3-8.2) g/dL Albumin (3.5-5.0) g/dL Lipase (23-300) U/L Urine Color Yellow Urine Appearance Cloudy (Clear) Urine pH 5.5 (5.0-8.0) Ur Specific [place] 1.027 (1.001-1.035) Urine Protein Trace H (Negative) Urine Glucose (UA) Negative (Negative) Urine Ketones 1+ H (Negative) Urine Blood Negative (Negative) Urine Nitrite Negative (Negative) Urine Bilirubin Negative (Negative) Urine Urobilinogen <2.0 (<2.0) mg/dL Ur Leukocyte Esterase Negative (Negative) Urine WBC 1 (0-5) /hpf Urine Mucus Many H (None) /hpf Disposition <Eric Zimmerman - Last Filed: 06/18/24 15:03> Is patient prescribed a controlled substance at d/c from ED?: No Time of Disposition: 19:30 <Nola Boston - Last Filed: 06/19/24 14:06> Clinical Impression: Enteritis Disposition: HOME SELF-CARE Instructions (If sedation given, give patient instructions): Enteritis (ED) Additional Instructions: Every disease is a spectrum and a small chance still exists that a serious condition could develop, for this reason, please monitor yourself closely for new, changing or worsening symptoms, return of symptoms, fevers, worsening symptoms, chest pain, difficulty in breathing, black or bloody stools, blood in your vomit, bright green vomit inability to tolerate/keep down fluids or your medications, inability to follow up with outpatient providers as instructed and should you experience these symptoms or should you have any further concerns for your wellbeing please return to the ED or call 911 immediately. Maintain a low fiber diet, please use pepcid, maalox/simethicone as needed for symptoms, zofran as prescribed for nausea, drink plenty of fluids and follow up with general surgery rodney. PLEASE call your primary care physician as soon as possible to arrange / discuss plan for followup appointment. Appointment in the next 1-3 days is strongly encouraged if possible. PLEASE let us know here before you leave if there is anything further we can do to be of any assistance. Take care and feel Better! Referrals: Delonte Corbin MD [Primary Care Provider] - 1-2 days Mc Galvan MD [Medical Doctor] - 1-2 days Alana Granado MD [STAFF PHYSICIAN] - 1-2 days
[2024-06-18 16:50] LABS: Basophils % (A) 0 %; Eosinophils % (A) 0 %; HCT 37.8 % (39.0-53.0); HGB 12.1 gm/dL (13.0-17.5); Hypochromasia Moderate; Lymphocytes # (A) 1.3 k/uL (1.0-4.8); Lymphocytes % (A) 14 %; MCH 27.3 pg (25.0-35.0); MCHC 31.9 g/dL (31.0-37.0); MCV 85.5 fL (80.0-100.0); Mean Platelet Volume 8.9; Monocytes # (A) 0.4 k/uL (0-1.0); Monocytes % (A) 5 %; Neutrophils # (A) 7.4 k/uL (1.3-7.7); Neutrophils % (A) 80 %; Platelet Count 219 k/uL (150-450); RBC 4.43 m/uL (4.30-5.90); RDW 14.2 % (11.5-15.5); WBC 9.2 k/uL (3.8-10.6)
[2024-06-18 16:51] LABS: ALT 20 U/L (4-49); AST 27 U/L (17-59); African American GFR (CKD) >90 (>60 ml/min/1.73 sqM); Albumin 4.6 g/dL (3.5-5.0); Alkaline Phosphatase 56 U/L (38-126); Anion Gap 9 mmol/L; Blood Urea Nitrogen 17 mg/dL (9-20); Calcium 9.1 mg/dL (8.4-10.2); Carbon Dioxide 18 mmol/L (22-30); Chloride 111 mmol/L (98-107); Glucose 104 mg/dL (74-99); Lipase 43 U/L (23-300); Non-African American GFR(CKD) 78 (>60 ml/min/1.73 sqM); Potassium 4.6 mmol/L (3.5-5.1); Sodium 138 mmol/L (137-145); Total Bilirubin 0.6 mg/dL (0.2-1.3); Total Protein 7.2 g/dL (6.3-8.2)
[2024-06-18 17:03] LABS: Appearance,Urine Cloudy (Clear); Bilirubin,Urine Negative (Negative); Blood,Urine Negative (Negative); Color,Urine Yellow; Glucose,Urine (UA) Negative (Negative); Ketones,Urine 1+ (Negative); Leukocyte Esterase,Urine Negative (Negative); Mucus,Urine Many /hpf; Nitrite,Urine Negative (Negative); PH, Urine 5.5 (5.0-8.0); Protein,Urine Trace (Negative); Specific Gravity,Urine 1.027 (1.001-1.035); Urobilinogen,Urine <2.0 mg/dL (<2.0); WBC,Urine 1 /hpf (0-5)
--- NOTE | 2024-06-18 18:31 | CT ---
EXAMINATION TYPE: CT abdomen pelvis w con DATE OF EXAM: 06/18/2024 COMPARISON: 01/07/2016 HISTORY: 83-year-old male abdominal pains and nausea and vomiting. TECHNIQUE: Contiguous axial scanning of the abdomen and pelvis following administration of 100 ml Iso truong 300 IV contrast. Delayed images through the kidneys and coronal/sagittal reconstructions perform ed. CT DLP: 797.5 mGycm Automated exposure control for dose reduction was used. FINDINGS: The heart is borderline in size with a LAD and RCA coronary artery calcifications. No pericardial eff usion. Strandy atelectasis lower lungs. Minimal emphysematous change. No pleural effusion. No focal occlusion or biliary ductal dilatation. Portal venous system is patent. Gallbladder, adrenal glands, right kidney, spleen, and pancreas within normal limits. There is a 3.4 cm diverticulum of the second portion of the duodenum projecting into the pancreatic head region. 2.6 cm cortical cyst left kidney. No dilated small bowel, free fluid, or free air. Some liquid stool within the right side of the colon . Some prominent fluid filled small bowel loops in the right mid and lower abdomen. There may be subt le mesenteric haziness in this region as well, axial T1. Suspect visualization of short segments of a normal appendix, axial image 49. Mild/moderate stool throughout the left side of the colon. Sigmoid diverticulosis. No pericolonic inflammatory change. Mild/moderate circumferential bladder wall thickening. Prostate gland mildly enlarged at 4.5 cm wide. There is trace pelvic free fluid which is abnormal in a male patient. Mild atelectatic calcifications abdominal aorta and common iliac arteries. Bones: Moderate degenerative disc disease lower lumbar spine. Hypertrophic facet arthropathy with deg enerative grade 1 anterolisthesis L2/L3. IMPRESSION: 1. SOME FLUID-FILLED SMALL BOWEL LOOPS IN THE RIGHT MIDABDOMEN AND RIGHT LOWER QUADRANT WITH LIQUID S TOOL IN THE ASCENDING COLON. THERE MAY BE SOME SUBTLE MESENTERIC HAZINESS/INFLAMMATION IN THE RIGHT L OWER QUADRANT WELL. CORRELATE FOR A NONSPECIFIC REGIONAL ENTERITIS. 2. MILD PELVIC FREE FLUID IS ABNORMAL IN A MALE PATIENT AND MAY BE REACTIVE TO THE ABOVE-MENTIONED IN FLAMMATION. SHORT INTERVAL FOLLOW-UP IF SYMPTOMS DO NOT IMPROVE. 3. CIRCUMFERENTIAL BLADDER WALL THICKENING MAY BE CHRONIC FOR THE PATIENT. CORRELATE TO EXCLUDE CYSTI TIS. 4 SIGMOID DIVERTICULOSIS WITHOUT FINDINGS OF ACUTE DIVERTICULITIS.
[2024-06-18 20:19] VITALS: BP 156/77; PULSE 55; RESP 17; TEMP 98.3
== END 2024-06-18 20:29 | disposition home or self-care (01) ==
LOC: EC 14:38
DX: K52.9 Noninfective gastroenteritis and colitis, unspecified (principal); I10 Essential (primary) hypertension; I25.10 Atherosclerotic heart disease of native coronary artery without angina pectoris; Z79.82 Long term (current) use of aspirin; Z79.899 Other long term (current) drug therapy
CPT/HCPCS: 36415; 80053; 83605; 83690; 85025; 81001; 74177; 99284; Q9967

== ENCOUNTER → 2024-06-21 | Outpatient (CLI) | payer MEDICARE ==
--- NOTE | 2024-07-13 09:39 | US ---
EXAMINATION TYPE: US abdomen complete DATE OF EXAM: 07/13/2024 COMPARISON: CT 06/18/2024 CLINICAL INDICATION: Male, 83 years old with history of R10.13 epigastric pain; TECHNIQUE: Multiple sonographic images of the abdomen are obtained. FINDINGS: Pancreas: No gross abnormality. Liver: Mildly heterogeneous echotexture may reflect some underlying fatty infiltration. No focal les ion. Gallbladder: wnl CBD: Unable to visualize the bile duct. Spleen: wnl Right Kidney: No hydronephrosis. Left Kidney: No hydronephrosis. There is an upper pole renal cortical cyst measuring 2.6 cm. Upper IVC: wnl Abd Aorta: wnl IMPRESSION: 1. Slight heterogeneous and echogenic appearance to the liver. Correlate for mild to moderate hepatic steatosis. 2. No gallstones. 3. Unable to visualize the bile duct for assessment.
== END | disposition home or self-care (01) ==
LOC: RADUSWWP 15:38
PROVIDERS: ATTEND Family Medicine
DX: R10.13 Epigastric pain
CPT/HCPCS: 76700

== ENCOUNTER → 2024-09-01 | Outpatient (CLI) | payer MEDICARE | END | disposition home or self-care (01) | LOC: LABWHC1 08:13 | PROVIDERS: ATTEND Urology | CPT/HCPCS: 36415; 84153 ==

== ENCOUNTER → 2024-11-16 | Outpatient (CLI) | payer MEDICARE | END | disposition home or self-care (01) | LOC: LABWHC1 10:31 | PROVIDERS: ATTEND Internal Medicine Endocrinology, Diabetes & Metabolism | DX: E03.8 Other specified hypothyroidism (principal) | CPT/HCPCS: 36415; 84443 ==

== ENCOUNTER → 2024-11-24 | Outpatient (CLI) | payer MEDICARE ==
[2024-11-24 15:09] LABS: Basophils # (A) 0.04 X 10*3/uL (0.00-0.10); Basophils % (A) 0.6 %; Eosinophils # (A) 0.06 X 10*3/uL (0.04-0.35); Eosinophils % (A) 0.9 %; HCT 38.4 % (39.6-50.0); HGB 12.4 g/dL (13.0-17.0); Lymphocytes # (A) 1.85 X 10*3/uL (0.90-5.00); Lymphocytes % (A) 26.5 %; MCH 28.1 pg (27.0-32.0); MCHC 32.3 g/dL (32.0-37.0); MCV 87.1 FL (80.0-97.0); Mean Platelet Volume 11.8 FL (9.5-12.2); Monocytes # (A) 0.54 X 10*3/uL (0.20-1.00); Monocytes % (A) 7.7 %; NRBC Per 100 WBC 0 X 10*3/uL (0.00-0.01); Neutrophils # (A) 4.47 X 10*3/uL (1.80-7.70); Neutrophils % (A) 64.2 %; Platelet Count 187 X 10*3/uL (140-440); RBC 4.41 X 10*6/uL (4.40-5.60); RDW 16.8 % (11.5-14.5); WBC 6.97 X 10*3/uL (4.50-10.00)
[2024-11-24 16:20] LABS: BUN/Creat Ratio 19.17 Ratio (12.00-20.00); Calcium 9.1 mg/dL (8.7-10.3); Carbon Dioxide 22.4 mmol/L (21.6-31.8); Chloride 105 mmol/L (96-109); Glucose 123 mg/dL (70-110); Potassium 4.4 mmol/L (3.5-5.5); Sodium 138 mmol/L (135-145)
== END | disposition home or self-care (01) ==
LOC: LABPAT 08:34
PROVIDERS: ATTEND Urology
DX: Z01.812 Encounter for preprocedural laboratory examination (principal); C61 Malignant neoplasm of prostate
CPT/HCPCS: 36415; 80048; 85025

== ENCOUNTER 2024-12-09 10:50 | Day surgery (SDC) | payer MEDICARE ==
[2024-12-07 16:23] VITALS: BMI 25.0
--- NOTE | 2024-12-07 19:58 | P.GSHP ---
History of Present Illness H&P Date: 12/07/24 Chief Complaint: Prostate cancer The patient is an 84-year-old white male with recently diagnosed prostate cancer. He has elected to be treated with radiation therapy and androgen deprivation therapy. He will undergo SpaceOAR implant to reduce the risk of radiation induced rectal toxicity. - Cardiovascular Cardiovascular: Reports high blood pressure - Genitourinary (Male) Genitourinary: Reports nocturia Past Medical History Past Medical History: Coronary Artery Disease (CAD), Cancer, Chest Pain / Angina, GERD/Reflux, Hearing Disorder / Deafness, Hyperlipidemia, Hypertension, Osteoarthritis (OA), Sleep Apnea/CPAP/BIPAP, Thyroid Disorder Additional Past Medical History / Comment(s): prostate CA, Hx skin cancer - removed. Hard of hearing. NO TX FOR SLEEP APNEA. HX DIVERTICULITIS X1. Hx Shingles. Hypothyroid. History of Any Multi-Drug Resistant Organisms: None Reported Past Surgical History: Appendectomy, Heart Catheterization, Heart Catheterization With Stent, Joint Replacement, Orthopedic Surgery, Tonsillectomy Additional Past Surgical History / Comment(s): Heart cath X3, with 1 stent each heart cath, bilateral total knee replacements, bilateral carpal tunnel, bilateral cubital tunnel, knee arthroscopy, rotator cuff repair, trigger finger release, bilateral lens implants. Past Anesthesia/Blood Transfusion Reactions: No Reported Reaction, Motion Sickness Additional Past Anesthesia/Blood Transfusion Reaction / Comment(s): Hx motion sickness in the . Date of Last Stent Placement:: 10/06/23 Smoking Status: Former smoker - Past Family History Mother Family Medical History: Coronary Artery Disease (CAD), Eye Disorder, Hyperlipidemia Additional Family Medical History / Comment(s): Heart stents, quadruple bypass, bilateral dry macular degeneration. Father Family Medical History: Liver Disease Additional Family Medical History / Comment(s): ETOH abuse. Medications and Allergies Home Medications Medication Instructions Recorded Confirmed Type Losartan Potassium [Cozaar] 100 mg PO HS 10/28/16 12/07/24 History Nitroglycerin Sl Tabs [Nitrostat] 0.4 mg SUBLINGUAL Q5M PRN 10/28/16 12/07/24 History Aspirin [Adult Low Dose Aspirin EC] 81 mg PO DAILY 03/18/19 12/07/24 History Levothyroxine Sodium [Synthroid] 112 mcg PO QAM 11/30/19 12/07/24 History Pitavastatin Calcium [Livalo] 2 mg PO DAILY 11/30/19 12/07/24 History Cholecalciferol [Vitamin D3 (125 25 mcg PO BID 03/14/24 12/07/24 History Mcg = 5000 Iu)] Triamcinolone 0.1% Lotion [Kenalog 1 applic TOPICAL BID PRN 03/14/24 12/07/24 History 0.1% Lotion] Alfuzosin HCl [Alfuzosin HCl ER] 10 mg PO HS 06/18/24 12/07/24 History amLODIPine [Norvasc] 10 mg PO HS 06/18/24 12/07/24 History Isosorbide Mononitrate [Isosorbide 60 mg PO QAM 08/23/24 12/07/24 History Mononitrate ER] Multivitamins, Thera [Multivitamin 1 tab PO BID 08/23/24 12/07/24 History (formulary)] Allergies Allergy/AdvReac Type Severity Reaction Status Date / Time No Known Allergies Allergy Verified 12/07/24 16:06 Surgical - Exam - General well developed, well nourished, no distress - Respiratory normal respiratory effort - Genitourinary normal penis with no external lesions, testicles non-tender - Rectum Rectum: normal sphincter tone, no masses, other (Left apical prostate nodule) - Psychiatric oriented to time, oriented to person, oriented to place, speech is normal, memory intact Assessment and Plan (1) Malignant neoplasm of prostate Status: Acute Code(s): C61 - MALIGNANT NEOPLASM OF PROSTATE SNOMED Code(s): 087245751 Plan: The SpaceOar implant has been reviewed in detail with the patient. He understands that the rationale for this is to create separation between the prostate and rectum, thus reducing the risk of radiation proctitis. The material begins to breakdown 12-13 weeks following implant, and is reabsorbed by the body. Risks include anesthesia, bleeding, infection, and perineal discomfort. He understands that if the rectal wall is perforated the procedure will need to be aborted.
[~2024-12-09 10:50] MED LIST changes: -DEXAMETHASONE SOD PHOSPHATE 10 MG/ML 1 ML VIAL IV ONE; -HEPARIN SODIUM,PORCINE 5,000 UNIT/ML 1 ML VIAL SQ ONE; +HYDROmorphone 0.5 MG/0.5 ML SYRINGE IVP PRN; -LACTATED RINGERS 1,000 ML IV SCH; +LIDOCAINE 1% (10MG/ML) FOR IV START INTRADERMA PRN; -LIDOCAINE 1% 20 ML VIAL (10MG/ML) FOR IV START INTRADERMA PRN; -ONDANSETRON 4 MG/2 ML VIAL IVP ONE; -Pre Op ABX Message 1 EACH MISC MISCELLANE ONE; -fentaNYL (PF) 50 MCG/ML 2 ML AMP IV PRN; +fentaNYL (PF) 50 MCG/ML 2 ML AMP IVP PRN
[2024-12-09 11:27] VITALS: TEMP 97.4
[2024-12-09] MEDS: ONDANSETRON 4 MG/2 ML VIAL IVP ONE (11:38)
[2024-12-09] MEDS: DEXAMETHASONE SOD PHOSPHATE 4 MG/ML 1 ML VIAL IV ONE (11:38)
[2024-12-09] MEDS: LACTATED RINGERS 1,000 ML IV SCH (11:38)
[2024-12-09] MEDS: IV FLUID CONTINUATION 1,000 ML IV ONE (11:40)
[2024-12-09] MEDS ORDERED: fentaNYL (PF) 50 MCG/ML 2 ML AMP ONE (12:21)
[2024-12-09] MEDS ORDERED: PROPOFOL 10 MG/ML 20 ML VIAL IV ONE (12:21)
[2024-12-09] MEDS ORDERED: MIDAZOLAM 2 MG/2 ML VIAL ONE (12:21)
[2024-12-09] MEDS ORDERED: LIDOCAINE 1% INJ 10MG/ML (20 ML MDV) ONE (12:21)
[2024-12-09] MEDS: LIDOCAINE 2% INJ 20 MG/ML SQ ONE ×2 (12:28→12:35)
--- NOTE | 2024-12-09 12:47 | P.OP ---
Date of Procedure: 12/09/24 Preoperative Diagnosis: Adenocarcinoma of the prostate Postoperative Diagnosis: Same Procedure(s) Performed: SpaceOAR implant Anesthesia: MAC Surgeon: Cooper Treviño Estimated Blood Loss (ml): 5 IV fluids (ml): 100 Pathology: none sent Condition: stable Disposition: PACU Indications for Procedure: The patient is an 84-year-old white male with recently diagnosed prostate cancer. He has elected to be treated with radiation therapy and androgen deprivation therapy. He will undergo SpaceOAR implant to reduce the risk of radiation induced rectal toxicity. Operative Findings: 12.6 mm separation created between prostate and rectum. Description of Procedure: The patient was taken to the operating room and placed in the dorsolithotomy position, with his legs supported in Swapnil stirrups. The external genitalia was prepped and draped sterilely. The [employer] transrectal ultrasound probe was placed intrarectally. The prostate was imaged. The probe was then placed within the stabilizing stand. A spinal needle was advanced under ultrasonic guidance to the level of the urogenital diaphragm, and lidocaine was used to infiltrate the tissues as the needle was withdrawn. Next, the SpaceOAR needle was passed through the midline of the perineum, 1-2 cm anterior to the anal opening. The needle was slowly advanced under ultrasonic guidance until the needle tip was located within the fat plane between the prostate and rectum, at the level of the mid prostate gland. The needle was confirmed to be midline on the axial imaging. A small amount of normal saline was injected for hydrodissection. Next, the SpaceOAR components were mixed and loaded into the Y connector per protocol. The Y connector was then connected to the needle, and the components were injected slowly over a course of approximately 12 seconds. A total of 10 ml was injected. Significant distance was created between the prostate and rectum, as desired. It should be noted that at no point was there any concern of rectal perforation. The needle was withdrawn, as well as the transrectal ultrasound probe, and the procedure was terminated. The patient tolerated the procedure well and was taken to the recovery room in stable condition.
[2024-12-09 13:12] VITALS: BP 111/66; PULSE 46; RESP 16
== END 2024-12-09 14:05 | disposition home or self-care (01) ==
LOC: OR 10:50
PROVIDERS: ATTEND Urology
DX: C61 Malignant neoplasm of prostate (principal); I10 Essential (primary) hypertension; I25.119 Atherosclerotic heart disease of native coronary artery with unspecified angina pectoris; I25.2 Old myocardial infarction; Z95.5 Presence of coronary angioplasty implant and graft; E78.5 Hyperlipidemia, unspecified; G47.33 Obstructive sleep apnea (adult) (pediatric); E03.9 Hypothyroidism, unspecified; K21.9 Gastro-esophageal reflux disease without esophagitis; M19.90 Unspecified osteoarthritis, unspecified site; Z79.82 Long term (current) use of aspirin; Z79.890 Hormone replacement therapy; Z79.899 Other long term (current) drug therapy; Z87.891 Personal history of nicotine dependence; Z96.653 Presence of artificial knee joint, bilateral
CPT/HCPCS: 55874; C1889; J2250; J1100; J0690; J2405; J2003 ×2; J3010; J2704

== ENCOUNTER → 2025-01-10 | Outpatient (CLI) | payer MEDICARE ==
[2025-01-10 20:41] LABS: ALT 43 U/L (10-49); AST 43 U/L (14-35); Albumin 4.5 g/dL (3.8-4.9); Albumin/Globulin Ratio 1.45 Ratio (1.60-3.17); Alkaline Phosphatase 74 U/L (41-126); Blood Urea Nitrogen 10.8 mg/dL (9.0-27.0); Calcium 9.5 mg/dL (8.7-10.3); Carbon Dioxide 25.8 mmol/L (21.6-31.8); Chloride 103 mmol/L (96-109); Chol/HDL Ratio 3.16 Ratio; Globulin 3.1 g/dL (1.6-3.3); Glucose 76 mg/dL (70-110); LDL Cholesterol,Calculated 100.9 mg/dL (0.0-131.0); Potassium 3.7 mmol/L (3.5-5.5); Sodium 140 mmol/L (135-145); Total Bilirubin 0.5 mg/dL (0.3-1.2); Total Protein 7.6 g/dL (6.2-8.2)
[2025-01-10 21:00] LABS: HCT 50.8 % (39.6-50.0); HGB 17.1 g/dL (13.0-17.0); MCH 30.6 pg (27.0-32.0); MCHC 33.7 g/dL (32.0-37.0); MCV 90.9 FL (80.0-97.0); Mean Platelet Volume 12.5 FL (9.5-12.2); NRBC Per 100 WBC 0 X 10*3/uL (0.00-0.01); Platelet Count 122 X 10*3/uL (140-440); RBC 5.59 X 10*6/uL (4.40-5.60); RDW 12.4 % (11.5-14.5); WBC 7.46 X 10*3/uL (4.50-10.00)
== END | disposition home or self-care (01) ==
LOC: LABWHC1 12:05
PROVIDERS: ATTEND Radiology Radiation Oncology
DX: C61 Malignant neoplasm of prostate (principal)
CPT/HCPCS: 36415; 80053; 80061; 83036; 84153; 84443; 85027

== ENCOUNTER 2025-01-11 18:59 | Emergency (ER) | payer MEDICARE ==
[2025-01-11 19:05] VITALS: RESP 18; TEMP 98
--- NOTE | 2025-01-11 21:12 | ED ---
Abdominal Pain HPI - General Chief Complaint: Abdominal Pain Stated Complaint: vomiting, med issue Time Seen by Provider: 01/11/25 20:22 Source: patient, RN notes reviewed Mode of arrival: wheelchair Limitations: no limitations - History of Present Illness Initial Comments: This is an 84-year-old male who presents to the emergency department for abdominal pain, nausea, and vomiting. Patient has a history of prostate cancer. States that he was having problems with frequent urination and yesterday was started on oxybutynin. Almost immediately afterwards he started to have severe abdominal pain with nausea and vomiting. This persisted throughout the night and started to improve this morning. However, while the pain and nausea seem to be better, they are still present and he is also increasingly fatigued. His states that he has been sleeping most of the day. They did contact Dr. Wyatt, who advised that this is a very rare possible side effect of the oxybutynin. Family is concerned that he is not acting like himself. He is currently A&O x 4. States that he feels very fatigued, however he does admit that the abdominal pain and nausea have improved. MD Complaint: abdominal pain - Related Data Home Medications Medication Instructions Recorded Confirmed Losartan Potassium [Cozaar] 100 mg PO HS 10/28/16 12/09/24 Nitroglycerin Sl Tabs [Nitrostat] 0.4 mg SUBLINGUAL Q5M PRN 10/28/16 12/09/24 Aspirin [Adult Low Dose Aspirin EC] 81 mg PO DAILY 03/18/19 12/09/24 Levothyroxine Sodium [Synthroid] 112 mcg PO QAM 11/30/19 12/09/24 Pitavastatin Calcium [Livalo] 2 mg PO DAILY 11/30/19 12/09/24 Cholecalciferol [Vitamin D3 (125 25 mcg PO BID 03/14/24 12/09/24 Mcg = 5000 Iu)] Triamcinolone 0.1% Lotion [Kenalog 1 applic TOPICAL BID PRN 03/14/24 12/09/24 0.1% Lotion] Alfuzosin HCl [Alfuzosin HCl ER] 10 mg PO HS 06/18/24 12/09/24 amLODIPine [Norvasc] 10 mg PO HS 06/18/24 12/09/24 Isosorbide Mononitrate [Isosorbide 60 mg PO QAM 08/23/24 12/09/24 Mononitrate ER] Multivitamins, Thera [Multivitamin 1 tab PO BID 08/23/24 12/09/24 (formulary)] Previous Rx's Medication Instructions Recorded Bicalutamide [Casodex] 50 mg PO DAILY #30 tablet 12/09/24 Amoxic-Pot Clav 875-125Mg 1 tab PO Q12HR 10 Days #20 tab 01/11/25 [Augmentin 875-125] Ondansetron Odt [Zofran Odt] 4 mg PO Q8HR PRN #20 tab 01/11/25 Allergies Allergy/AdvReac Type Severity Reaction Status Date / Time No Known Allergies Allergy Verified 01/11/25 19:05 Review of Systems ROS Statement: Those systems with pertinent positive or pertinent negative responses have been documented in the HPI. ROS Other: All systems not noted in ROS Statement are negative. Past Medical History Past Medical History: Coronary Artery Disease (CAD), Cancer, Chest Pain / Angina, GERD/Reflux, Hearing Disorder / Deafness, Hyperlipidemia, Hypertension, Osteoarthritis (OA), Sleep Apnea/CPAP/BIPAP, Thyroid Disorder Additional Past Medical History / Comment(s): Hx skin cancer - removed. Hard of hearing. NO TX FOR SLEEP APNEA. HX DIVERTICULITIS X1. Hx Shingles. Hypothyroid. History of Any Multi-Drug Resistant Organisms: None Reported Past Surgical History: Appendectomy, Heart Catheterization With Stent, Joint Replacement, Orthopedic Surgery, Tonsillectomy Additional Past Surgical History / Comment(s): Heart cath X3, with 1 stent each heart cath, bilateral total knee replacements, bilateral carpal tunnel, bilateral cubital tunnel, knee arthroscopy, rotator cuff repair, trigger finger release, bilateral lens implants. Past Anesthesia/Blood Transfusion Reactions: No Reported Reaction, Motion Sickness Additional Past Anesthesia/Blood Transfusion Reaction / Comment(s): Hx motion sickness in the . Date of Last Stent Placement:: 10/06/23 Past Psychological History: No Psychological Hx Reported Smoking Status: Former smoker Past Alcohol Use History: None Reported Past Drug Use History: None Reported - Past Family History Mother Family Medical History: Coronary Artery Disease (CAD), Eye Disorder, Hyperlipidemia Additional Family Medical History / Comment(s): Heart stents, quadruple bypass, bilateral dry macular degeneration. Father Family Medical History: Liver Disease Additional Family Medical History / Comment(s): ETOH abuse. General Exam Limitations: no limitations General appearance: alert, in no apparent distress Head exam: Present: atraumatic, normocephalic, normal inspection Respiratory exam: Present: normal lung sounds bilaterally. Absent: respiratory distress, wheezes, rales, rhonchi, stridor Cardiovascular Exam: Present: regular rate, normal rhythm GI/Abdominal exam: Present: soft, tenderness (mild and diffuse), normal bowel sounds. Absent: distended Neurological exam: Present: alert, oriented X3, CN II-XII intact Psychiatric exam: Present: normal affect, normal mood Skin exam: Present: warm, dry, intact, normal color. Absent: rash Course Vital Signs 01/11/25 01/12/25 19:02 00:14 Temperature 98.0 F Pulse Rate 64 70 Respiratory 18 18 Rate Blood Pressure 144/72 140/70 O2 Sat by Pulse 98 98 Oximetry Medical Decision Making - Medical Decision Making This is an 84-year-old male who presents to the emergency department for abdominal pain. Was pt. sent in by a medical professional or institution? @ -No Did you speak to anyone other than the patient for history? @ -His provided the majority of the history. Did you review nursing and triage notes? @ -Yes, and I agree, it is accurate with regards to the patient's symptoms. Were old charts reviewed? @ -No Differential Diagnosis? @ -Differential Abdominal Pain Men: Appendicitis, cholecystitis, diverticulosis, ischemic bowel, pancreatitis, hepatitis, UTI, gastroenteritis, AAA, incarcerated hernia, bowel obstruction, constipation, inflammatory bowel, hepatitis, peptic ulcer disease, splenic infa rction, perforated viscus, testicular torsion, this is not meant to be an all- inclusive list EKG interpreted by me (3pts min.)? @ -EKG interpreted by me demonstrating the following: Sinus bradycardia. Ventricular rate 55 bpm, UT interval 256 ms, QRS duration 82 ms, QTc 398 ms. X-rays interpreted by me (1pt min.)? @ -Not obtained CT interpreted by me (1pt min.)? @ -CT scan of the abdomen and pelvis obtained. My interpretation identifies inflammation around the sigmoid colon. U/S interpreted by me (1pt. min.)? @ -Not obtained What testing was considered but not performed? (CT, X-rays, U/S, labs)? Why? @ -None What meds were considered but not given? Why? @ -None Did you discuss the management of the patient with other professionals? @ -No Did you reconcile home meds? @ -No Was smoking cessation discussed for >3mins.? @ -No Was critical care preformed (if so, how long)? @ -No Were there social determinants of health that impacted care today? How? (Homelessness, low income, unemployed, alcoholism, drug addiction, transportation, low edu. Level, literacy, decrease access to med. care, fci, rehab)? @ -No Was there de-escalation of care discussed even if they declined? (Discuss DNR or withdrawal of care, Hospice)? @ -No What co-morbidities impacted this encounter? (DM, HTN, Smoking, COPD, CAD, Cancer, CVA, Hep., AIDS, mental health diagnosis, sleep apnea, morbid obesity)? @ -Hx of prostate cancer Was patient admitted / discharged? @ -Discharged. Lab work demonstrates signs of dehydration and is otherwise unremarkable. Urinalysis negative for signs of infection. CT scan of the abdomen and pelvis demonstrates mild acute diverticulitis of the sigmoid colon. There is no perforation or abscess. Symptoms were well-controlled with IV fluids, Zofran, and pantoprazole. He was tolerating oral intake and felt sign ificantly improved. His also states that he seemed much better. Prescription for Augmentin and Zofran provided. He will follow-up with Dr. Wyatt as scheduled tomorrow. We also discussed strict return parameters in the event symptoms worsen. Patient discharged home in stable condition. Case discussed with ED attending Dr. Soliz. Return precautions reviewed in depth, the patient is instructed to return to the emergency department with any new, worsening, or concerning symptoms. Patient verbalized understanding. Undiagnosed new problem with uncertain prognosis? @ -None Drug Therapy requiring intensive monitoring for toxicity (Heparin, Nitro, Insulin, Cardizem)? @ -None Were any procedures done? @ -None Diagnosis/symptom? @ -Diverticulitis, medication reaction Acute, or Chronic, or Acute on Chronic? @ -Acute Uncomplicated (without systemic symptoms) or Complicated (systemic symptoms)? @ -Uncomplicated Side effects of treatment? @ -None Exacerbation, Progression, or Severe Exacerbation] @ -Not applicable Poses a threat to life or bodily function? @ -No - Lab Data Result diagrams: 01/11/25 21:21 01/11/25 21:21 Lab Results 01/11/25 01/11/25 01/11/25 Range/Units 21:21 21:21 21:21 WBC 6.1 (3.8-10.6) k/uL RBC 4.58 (4.30-5.90) m/uL Hgb 13.2 (13.0-17.5) gm/dL Hct 41.1 (39.0-53.0) % MCV 89.6 (80.0-100.0) fL MCH 28.9 (25.0-35.0) pg MCHC 32.2 (31.0-37.0) g/dL RDW 15.0 (11.5-15.5) % Plt Count 178 (150-450) k/uL MPV 8.7 Neutrophils % 85 % Lymphocytes % 8 % Monocytes % 6 % Eosinophils % 0 % Basophils % 0 % Neutrophils # 5.2 (1.3-7.7) k/uL Lymphocytes # 0.5 L (1.0-4.8) k/uL Monocytes # 0.4 (0-1.0) k/uL Eosinophils # 0.0 (0-0.7) k/uL Basophils # 0.0 (0-0.2) k/uL Sodium 136 L (137-145) mmol/L Potassium 4.1 (3.5-5.1) mmol/L Chloride 101 (98-107) mmol/L Carbon Dioxide 26 (22-30) mmol/L Anion Gap 9 mmol/L BUN 26 H (9-20) mg/dL Creatinine 1.01 (0.66-1.25) mg/dL Est GFR (CKD-EPI)AfAm 80 (>60 ml/min/1.73 sqM) Est GFR (CKD-EPI)NonAf 69 (>60 ml/min/1.73 sqM) Glucose 121 H (74-99) mg/dL Plasma Lactic Acid Yash (0.7-2.0) mmol/L Calcium 9.4 (8.4-10.2) mg/dL Magnesium 2.2 (1.6-2.3) mg/dL Total Bilirubin 0.6 (0.2-1.3) mg/dL AST 27 (17-59) U/L ALT 27 (4-49) U/L Alkaline Phosphatase 50 (38-126) U/L Troponin I (0.000-0.034) ng/mL Total Protein 7.0 (6.3-8.2) g/dL Albumin 4.4 (3.5-5.0) g/dL Amylase 62 (30-110) U/L Lipase 31 (23-300) U/L Urine Color Yellow Urine Appearance Cloudy (Clear) Urine pH 6.0 (5.0-8.0) Ur Specific [place] 1.023 (1.001-1.035) Urine Protein 1+ H (Negative) Urine Glucose (UA) Negative (Negative) Urine Ketones Negative (Negative) Urine Blood Negative (Negative) Urine Nitrite Negative (Negative) Urine Bilirubin Negative (Negative) Urine Urobilinogen <2.0 (<2.0) mg/dL Ur Leukocyte Esterase Negative (Negative) Urine RBC 1 (0-5) /hpf Urine WBC 6 H (0-5) /hpf Hyaline Casts 33 H (0-2) /lpf Urine Mucus Many H (None) /hpf Influenza Type A (PCR) (Not Detectd) Influenza Type B (PCR) (Not Detectd) RSV (PCR) (Not Detectd) SARS-CoV-2 (PCR) (Not Detectd) 01/11/25 01/11/25 01/11/25 Range/Units 21:21 21:21 21:21 WBC (3.8-10.6) k/uL RBC (4.30-5.90) m/uL Hgb (13.0-17.5) gm/dL Hct (39.0-53.0) % MCV (80.0-100.0) fL MCH (25.0-35.0) pg MCHC (31.0-37.0) g/dL RDW (11.5-15.5) % Plt Count (150-450) k/uL MPV Neutrophils % % Lymphocytes % % Monocytes % % Eosinophils % % Basophils % % Neutrophils # (1.3-7.7) k/uL Lymphocytes # (1.0-4.8) k/uL Monocytes # (0-1.0) k/uL Eosinophils # (0-0.7) k/uL Basophils # (0-0.2) k/uL Sodium (137-145) mmol/L Potassium (3.5-5.1) mmol/L Chloride (98-107) mmol/L Carbon Dioxide (22-30) mmol/L Anion Gap mmol/L BUN (9-20) mg/dL Creatinine (0.66-1.25) mg/dL Est GFR (CKD-EPI)AfAm (>60 ml/min/1.73 sqM) Est GFR (CKD-EPI)NonAf (>60 ml/min/1.73 sqM) Glucose (74-99) mg/dL Plasma Lactic Acid Yash 1.0 (0.7-2.0) mmol/L Calcium (8.4-10.2) mg/dL Magnesium (1.6-2.3) mg/dL Total Bilirubin (0.2-1.3) mg/dL AST (17-59) U/L ALT (4-49) U/L Alkaline Phosphatase (38-126) U/L Troponin I <0.012 (0.000-0.034) ng/mL Total Protein (6.3-8.2) g/dL Albumin (3.5-5.0) g/dL Amylase (30-110) U/L Lipase (23-300) U/L Urine Color Urine Appearance (Clear) Urine pH (5.0-8.0) Ur Specific [place] (1.001-1.035) Urine Protein (Negative) Urine Glucose (UA) (Negative) Urine Ketones (Negative) Urine Blood (Negative) Urine Nitrite (Negative) Urine Bilirubin (Negative) Urine Urobilinogen (<2.0) mg/dL Ur Leukocyte Esterase (Negative) Urine RBC (0-5) /hpf Urine WBC (0-5) /hpf Hyaline Casts (0-2) /lpf Urine Mucus (None) /hpf Influenza Type A (PCR) Not Detected (Not Detectd) Influenza Type B (PCR) Not Detected (Not Detectd) RSV (PCR) Not Detected (Not Detectd) SARS-CoV-2 (PCR) Not Detected (Not Detectd) - Radiology Data Radiology results: report reviewed, image reviewed Disposition Clinical Impression: Diverticulitis, Medication reaction Disposition: HOME SELF-CARE Condition: Fair Instructions (If sedation given, give patient instructions): Diverticulitis (ED) Additional Instructions: Return to the emergency department with any new, worsening, or concerning symptoms. Take the antibiotic as prescribed for 10 days. Take the Zofran up to every 8 hours as needed for nausea and vomiting. Take Tylenol as needed for pain relief. Slowly advance your diet as tolerated and remain well-hydrated. Follow up with your primary care provider in 1-2 days. Prescriptions: Amoxic-Pot Clav 875-125Mg [Augmentin 875-125] 1 tab PO Q12HR 10 Days #20 tab Ondansetron Odt [Zofran Odt] 4 mg PO Q8HR PRN #20 tab PRN Reason: Nausea And Vomiting Is patient prescribed a controlled substance at d/c from ED?: No Referrals: Delonte Corbin MD [Primary Care Provider] - 1-2 days Time of Disposition: 23:38
[2025-01-11 21:39] LABS: Basophils % (A) 0 %; Eosinophils % (A) 0 %; HCT 41.1 % (39.0-53.0); HGB 13.2 gm/dL (13.0-17.5); Lymphocytes # (A) 0.5 k/uL (1.0-4.8); Lymphocytes % (A) 8 %; MCH 28.9 pg (25.0-35.0); MCHC 32.2 g/dL (31.0-37.0); MCV 89.6 fL (80.0-100.0); Mean Platelet Volume 8.7; Monocytes # (A) 0.4 k/uL (0-1.0); Monocytes % (A) 6 %; Neutrophils # (A) 5.2 k/uL (1.3-7.7); Neutrophils % (A) 85 %; Platelet Count 178 k/uL (150-450); RBC 4.58 m/uL (4.30-5.90); WBC 6.1 k/uL (3.8-10.6)
[2025-01-11 21:46] LABS: Appearance,Urine Cloudy (Clear); Bilirubin,Urine Negative (Negative); Blood,Urine Negative (Negative); Color,Urine Yellow; Glucose,Urine (UA) Negative (Negative); Hyaline Casts,Urine 33 /lpf (0-2); Ketones,Urine Negative (Negative); Leukocyte Esterase,Urine Negative (Negative); Mucus,Urine Many /hpf; Nitrite,Urine Negative (Negative); Protein,Urine 1+ (Negative); RBC,Urine 1 /hpf (0-5); Specific Gravity,Urine 1.023 (1.001-1.035); Urobilinogen,Urine <2.0 mg/dL (<2.0); WBC,Urine 6 /hpf (0-5)
[2025-01-11] MEDS: SODIUM CHLORIDE 0.9% 1,000 ML IV STA (21:57)
[2025-01-11] MEDS: ONDANSETRON 4 MG/2 ML VIAL IVP STA (21:57)
[2025-01-11] MEDS: PANTOPRAZOLE 40 MG/10 ML VIAL IVP STA (21:57)
[2025-01-11 22:00] LABS: ALT 27 U/L (4-49); AST 27 U/L (17-59); African American GFR (CKD) 80 (>60 ml/min/1.73 sqM); Albumin 4.4 g/dL (3.5-5.0); Alkaline Phosphatase 50 U/L (38-126); Amylase 62 U/L (30-110); Anion Gap 9 mmol/L; Blood Urea Nitrogen 26 mg/dL (9-20); Calcium 9.4 mg/dL (8.4-10.2); Carbon Dioxide 26 mmol/L (22-30); Chloride 101 mmol/L (98-107); Glucose 121 mg/dL (74-99); Lipase 31 U/L (23-300); Magnesium 2.2 mg/dL (1.6-2.3); Non-African American GFR(CKD) 69 (>60 ml/min/1.73 sqM); Potassium 4.1 mmol/L (3.5-5.1); Sodium 136 mmol/L (137-145); Total Bilirubin 0.6 mg/dL (0.2-1.3)
[2025-01-11 22:14] LABS: Influenza A Not Detected (Not Detectd); Influenza B Not Detected (Not Detectd); RSV Not Detected (Not Detectd)
--- NOTE | 2025-01-11 23:22 | CT ---
EXAM: CT Abdomen and Pelvis With Intravenous Contrast CLINICAL HISTORY: ITS.REASON CT Reason: Abdominal pain, acute, nonlocalized TECHNIQUE: Axial computed tomography images of the abdomen and pelvis with intravenous contrast. CTDI is 17 mGy and DLP is 764.8 mGy-cm. This CT exam was performed using one or more of the following dose reduction techniques: automated exposure control, adjustment of the mA and/or kV according to patient size, and/or use of iterative reconstruction technique. COMPARISON: No relevant prior studies available. FINDINGS: ABDOMEN: Liver: Unremarkable. Gallbladder and bile ducts: Unremarkable. Pancreas: Unremarkable. Spleen: Unremarkable. Adrenals: Unremarkable. Kidneys and ureters: Unremarkable. No obstructing stones. No hydronephrosis. Stomach and bowel: Mild acute diverticulitis of the sigmoid colon. No perforation or abscess. PELVIS: Appendix: No findings to suggest acute appendicitis. Bladder: Unremarkable. Reproductive: Unremarkable as visualized. ABDOMEN and PELVIS: Intraperitoneal space: Unremarkable. No free air. No significant fluid collection. Bones/joints: No acute fracture. Soft tissues: Unremarkable. Vasculature: Aortobiiliac atherosclerotic calcifications. Lymph nodes: Unremarkable. IMPRESSION: Mild acute diverticulitis of the sigmoid colon. No perforation or abscess.
[2025-01-12] MEDS: ACET/COD 300 MG/30 MG STARTER PACK 6 TAB BTL PO STA (00:05)
[2025-01-12] MEDS: ONDANSETRON 4 MG ODT STARTER PACK 2 TAB BTL PO STA (00:05)
[2025-01-12] MEDS: AMOXIC-POT CLAV 875MG STARTER PACK 2 TAB BTL PO STA (00:05)
[2025-01-12 00:15] VITALS: BP 140/70; PULSE 70
== END 2025-01-12 00:15 | disposition home or self-care (01) ==
LOC: EC 18:59
DX: K57.32 Diverticulitis of large intestine without perforation or abscess without bleeding (principal); T50.905A Adverse effect of unspecified drugs, medicaments and biological substances, initial encounter; Z85.46 Personal history of malignant neoplasm of prostate; Z87.891 Personal history of nicotine dependence
CPT/HCPCS: 36415; 93005; 80053; 82150; 83605; 83690; 83735; 84484; 85025; 81001; 87636; 74177; 99284; 96374; 96375; 96361; J2405; S0119; Q9967; J2470

== ENCOUNTER → 2025-03-14 | Outpatient (CLI) | payer MEDICARE | END | disposition home or self-care (01) | LOC: LABWHC1 10:31 | PROVIDERS: ATTEND Radiology Radiation Oncology | DX: C61 Malignant neoplasm of prostate (principal) | CPT/HCPCS: 36415; 84153 ==

== ENCOUNTER 2025-05-15 21:09 | Emergency (ER) | payer MEDICARE ==
--- NOTE | 2025-05-15 21:40 | ED ---
General Adult HPI - General Source: patient, RN notes reviewed Mode of arrival: ambulatory Limitations: no limitations <Anisa Choe - Last Filed: 05/15/25 22:58> - General Source: patient, RN notes reviewed Mode of arrival: ambulatory Limitations: no limitations <Iain Bradley - Last Filed: 05/16/25 00:13> - General Chief complaint: Nausea/Vomiting/Diarrhea Stated complaint: NVD Time Seen by Provider: 05/15/25 21:18 - History of Present Illness Initial comments: 84-year-old male presents to the emergency department for evaluation of nausea and vomiting with abdominal discomfort. Patient notes that this started earlier today. He notes around 4 PM. He states that it feels like his stomach is in knots. This causes him to become nauseated and he has had multiple episodes of vomiting since this started. He does note that he has had normal bowel movements recently. He has had similar episodes to this in the past. He does follow-up with Dr. Granado. Prior abdominal surgeries include appendectomy. (Anisa Choe) - Related Data Home Medications Medication Instructions Recorded Confirmed Losartan Potassium [Cozaar] 100 mg PO HS 10/28/16 12/09/24 Nitroglycerin Sl Tabs [Nitrostat] 0.4 mg SUBLINGUAL Q5M PRN 10/28/16 12/09/24 Aspirin [Adult Low Dose Aspirin EC] 81 mg PO DAILY 03/18/19 12/09/24 Levothyroxine Sodium [Synthroid] 112 mcg PO QAM 11/30/19 12/09/24 Pitavastatin Calcium [Livalo] 2 mg PO DAILY 11/30/19 12/09/24 Cholecalciferol [Vitamin D3 (125 25 mcg PO BID 03/14/24 12/09/24 Mcg = 5000 Iu)] Triamcinolone 0.1% Lotion [Kenalog 1 applic TOPICAL BID PRN 03/14/24 12/09/24 0.1% Lotion] Alfuzosin HCl [Alfuzosin HCl ER] 10 mg PO HS 06/18/24 12/09/24 amLODIPine [Norvasc] 10 mg PO HS 06/18/24 12/09/24 Isosorbide Mononitrate [Isosorbide 60 mg PO QAM 10/07/24 01/23/25 Mononitrate ER] Multivitamins, Thera [Multivitamin 1 tab PO BID 08/23/24 12/09/24 (formulary)] Previous Rx's Medication Instructions Recorded Bicalutamide [Casodex] 50 mg PO DAILY #30 tablet 12/09/24 Amoxic-Pot Clav 875-125Mg 1 tab PO Q12HR 10 Days #20 tab 01/11/25 [Augmentin 875-125] Ondansetron Odt [Zofran Odt] 4 mg PO Q8HR PRN #20 tab 01/11/25 Ondansetron Odt [Zofran Odt] 4 mg PO Q8HR PRN #10 tab 05/16/25 Allergies Allergy/AdvReac Type Severity Reaction Status Date / Time No Known Allergies Allergy Verified 05/15/25 21:14 Review of Systems ROS Other: All systems not noted in ROS Statement are negative. <Anisa Choe - Last Filed: 05/15/25 22:58> ROS Other: All systems not noted in ROS Statement are negative. <Iain Bradley - Last Filed: 05/16/25 00:13> ROS Statement: Those systems with pertinent positive or pertinent negative responses have been documented in the HPI. Past Medical History Past Medical History: Coronary Artery Disease (CAD), Cancer, Chest Pain / Angina, GERD/Reflux, Hearing Disorder / Deafness, Hyperlipidemia, Hypertension, Osteoarthritis (OA), Sleep Apnea/CPAP/BIPAP, Thyroid Disorder Additional Past Medical History / Comment(s): Hx skin cancer - removed. Hard of hearing. NO TX FOR SLEEP APNEA. HX DIVERTICULITIS X1. Hx Shingles. Hypothyroid. History of Any Multi-Drug Resistant Organisms: None Reported Past Surgical History: Appendectomy, Heart Catheterization With Stent, Joint Replacement, Orthopedic Surgery, Tonsillectomy Additional Past Surgical History / Comment(s): Heart cath X3, with 1 stent each heart cath, bilateral total knee replacements, bilateral carpal tunnel, bilateral cubital tunnel, knee arthroscopy, rotator cuff repair, trigger finger release, bilateral lens implants. Past Anesthesia/Blood Transfusion Reactions: No Reported Reaction, Motion Sickness Additional Past Anesthesia/Blood Transfusion Reaction / Comment(s): Hx motion sickness in the . Date of Last Stent Placement:: 10/06/23 Past Psychological History: No Psychological Hx Reported Smoking Status: Former smoker Past Alcohol Use History: None Reported Past Drug Use History: None Reported - Past Family History Mother Family Medical History: Coronary Artery Disease (CAD), Eye Disorder, Hyperlipidemia Additional Family Medical History / Comment(s): Heart stents, quadruple bypass, bilateral dry macular degeneration. Father Family Medical History: Liver Disease Additional Family Medical History / Comment(s): ETOH abuse. <Anisa Choe - Last Filed: 05/15/25 22:58> General Exam Limitations: no limitations General appearance: alert, in no apparent distress Head exam: Present: atraumatic, normocephalic, normal inspection Eye exam: Present: normal appearance, PERRL, EOMI. Absent: scleral icterus, conjunctival injection, periorbital swelling ENT exam: Present: normal exam, mucous membranes moist Neck exam: Present: normal inspection. Absent: tenderness, meningismus, lymphadenopathy Respiratory exam: Present: normal lung sounds bilaterally. Absent: respiratory distress, wheezes, rales, rhonchi, stridor Cardiovascular Exam: Present: regular rate, normal rhythm, normal heart sounds. Absent: systolic murmur, diastolic murmur, rubs, gallop, clicks GI/Abdominal exam: Present: distended, normal bowel sounds. Absent: guarding, rebound, rigid Extremities exam: Present: normal inspection, full ROM, normal capillary refill. Absent: tenderness, pedal edema, joint swelling, calf tenderness Back exam: Present: normal inspection Neurological exam: Present: alert, oriented X3 Psychiatric exam: Present: normal affect, normal mood Skin exam: Present: warm, dry, intact, normal color. Absent: rash <Anisa Choe - Last Filed: 05/15/25 22:58> Limitations: no limitations General appearance: alert, in no apparent distress Head exam: Present: atraumatic, normocephalic, normal inspection Eye exam: Present: normal appearance, PERRL, EOMI. Absent: scleral icterus, conjunctival injection, periorbital swelling ENT exam: Present: normal exam, mucous membranes moist Neck exam: Present: normal inspection. Absent: tenderness, meningismus, lymphadenopathy Respiratory exam: Present: normal lung sounds bilaterally. Absent: respiratory distress, wheezes, rales, rhonchi, stridor Cardiovascular Exam: Present: regular rate, normal rhythm, normal heart sounds. Absent: systolic murmur, diastolic murmur, rubs, gallop, clicks GI/Abdominal exam: Present: soft, distended, normal bowel sounds. Absent: tenderness, guarding, rebound, rigid Extremities exam: Present: normal inspection, full ROM, normal capillary refill. Absent: tenderness, pedal edema, joint swelling, calf tenderness Back exam: Present: normal inspection Neurological exam: Present: alert, oriented X3, CN II-XII intact Psychiatric exam: Present: normal affect, normal mood Skin exam: Present: warm, dry, intact, normal color. Absent: rash <Iain Bradley - Last Filed: 05/16/25 00:13> Course Vital Signs 05/15/25 05/15/25 21:11 23:54 Temperature 98.9 F 98.3 F Pulse Rate 52 L 69 Respiratory 18 19 Rate Blood Pressure 177/88 148/79 O2 Sat by Pulse 98 100 Oximetry Medical Decision Making - Lab Data Result diagrams: 05/15/25 21:44 05/15/25 21:44 <Anisa Choe - Last Filed: 05/15/25 22:58> - Lab Data Result diagrams: 05/15/25 21:44 05/15/25 21:44 <Iain Bradley - Last Filed: 05/16/25 00:13> - Medical Decision Making Was pt. sent in by a medical professional or institution (SOFYA Reynaga, [employer], urgent care, hospital, or assisted...) When possible be specific @ -[No] Did you speak to anyone other than the patient for history (EMS, parent, family, police, friend...)? What history was obtained from this source @ -[No] Did you review nursing and triage notes (agree or disagree)? Why? @ -[I reviewed and agree with nursing and triage notes] Were old charts reviewed (outside hosp., previous admission, EMS record, old EKG, old radiological studies, urgent care reports/EKG's, assisted records)? Report findings @ -[No old charts were reviewed] Differential Diagnosis (chest pain, altered mental status, abdominal pain women, abdominal pain men, vaginal bleeding, weakness, fever, dyspnea, syncope, headache, dizziness, GI bleed, back pain, seizure, CVA, palpatations, mental health, musculoskeletal)? @ -Differential Abdominal Pain Men: Appendicitis, cholecystitis, diverticulosis, ischemic bowel, pancreatitis, hepatitis, UTI, gastroenteritis, AAA, incarcerated hernia, bowel obstruction, constipation, inflammatory bowel, hepatitis, peptic ulcer disease, splenic infarction, perforated viscus, testicular torsion, this is not meant to be an all-inclusive list EKG interpreted by me (3pts min.). @ -EKG@2136 reveals sinus rhythm rate 67, ME 279, QRS 80, QT/QTc 684139 X-rays interpreted by me (1pt min.). @ -[None done] CT interpreted by me (1pt min.). @ -[None done] U/S interpreted by me (1pt. min.). @ -[None done] What testing was considered but not performed or refused? (CT, X-rays, U/S, labs)? Why? @ -[None] What meds were considered but not given or refused? Why? @ -[None] Did you discuss the management of the patient with other professionals (professionals i.e. , PA, HYDRO MECHANIC, lab, RT, psych nurse, social problems specialist, gas leak tester, teacher, border patrol officer, briefcase sewer)? Give summary @ -[No] Was smoking cessation discussed for >3mins.? @ -[No] Was critical care preformed (if so, how long)? @ -[No] Were there social determinants of health that impacted care today? How? (Ho melessness, low income, unemployed, alcoholism, drug addiction, transportation, low edu. Level, literacy, decrease access to med. care, mcc, rehab)? @ -[No] Was there de-escalation of care discussed even if they declined (Discuss DNR or withdrawal of care, Hospice)? DNR status @ -[No] What co-morbidities impacted this encounter? (DM, HTN, Smoking, COPD, CAD, Cancer, CVA, ARF, Chemo, Hep., AIDS, mental health diagnosis, sleep apnea, morbid obesity)? @ -[None] Was patient admitted / discharged? Hospital course, mention meds given and route, prescriptions, significant lab abnormalities, going to OR and other pertinent info. @ -Case signed out to Lane Bradley PA-C pending CT scan results. Undiagnosed new problem with uncertain prognosis? @ -[No] Drug Therapy requiring intensive monitoring for toxicity (Heparin, Nitro, Insulin, Cardizem)? @ -[No] Were any procedures done? @ -[No] Diagnosis/symptom? @ -[default] Acute, or Chronic, or Acute on Chronic? @ -[default] Uncomplicated (without systemic symptoms) or Complicated (systemic symptoms)? @ -[default] Side effects of treatment? @ -[No] Exacerbation, Progression, or Severe Exacerbation? @ -[No] Poses a threat to life or bodily function? How? (Chest pain, [place], [place], pneumonia, PE, COPD, DKA, ARF, appy, cholecystitis, CVA, Diverticulitis, Homicidal, Suicidal, threat to staff... and all critical care pts) @ -[No] (Anisa Choe) Was pt. sent in by a medical professional or institution (, PA, HYDRO MECHANIC, urgent care, hospital, or assisted...) When possible be specific @ -No Did you speak to anyone other than the patient for history (EMS, parent, family, police, friend...)? What history was obtained from this source @ -No Did you review nursing and triage notes (agree or disagree)? Why? @ -I reviewed and agree with nursing and triage notes Were old charts reviewed (outside hosp., previous admission, EMS record, old EKG, old radiological studies, urgent care reports/EKG's, assisted records)? Report findings @ -No old charts were reviewed Differential Diagnosis (chest pain, altered mental status, abdominal pain women, abdominal pain men, vaginal bleeding, weakness, fever, dyspnea, syncope, headache, dizziness, GI bleed, back pain, seizure, CVA, palpatations, mental health, musculoskeletal)? @ -Differential Abdominal Pain Men: Appendicitis, cholecystitis, diverticulosis, ischemic bowel, pancreatitis, hepatitis, UTI, gastroenteritis, AAA, incarcerated hernia, bowel obstruction, constipation, inflammatory bowel, hepatitis, peptic ulcer disease, splenic infarction, perforated viscus, testicular torsion, this is not meant to be an all-inclusive list EKG interpreted by me (3pts min.). @ -Sinus rhythm with first-degree AV block and solitary T wave inversion in lead III. No ST deviation. Ventricular rate 67 bpm, COCO 279 ms, QRS 80 ms, QTc 432 ms. X-rays interpreted by me (1pt min.). @ -None done CT interpreted by me (1pt min.). @ -AP CT shows nondilated mid to distal small bowel indicating nonspecific regional enteritis. Distal colonic diverticulosis without diverticulitis and chronic circumferential wall thickening of the urinary bladder also noted. U/S interpreted by me (1pt. min.). @ -None done What testing was considered but not performed or refused? (CT, X-rays, U/S, labs)? Why? @ -None What meds were considered but not given or refused? Why? @ -None Did you discuss the management of the patient with other professionals (sohail wiseman i.eFreda Reynaga, PA, HYDRO MECHANIC, lab, RT, psych nurse, social problems specialist, gas leak tester, teacher, border patrol officer, briefcase sewer)? Give summary @ -No Was smoking cessation discussed for >3mins.? @ -No Was critical care preformed (if so, how long)? @ -No Were there social determinants of health that impacted care today? How? (Homelessness, low income, unemployed, alcoholism, drug addiction, transportation, low edu. Level, literacy, decrease access to med. care, mcc, rehab)? @ -No Was there de-escalation of care discussed even if they declined (Discuss DNR or withdrawal of care, Hospice)? DNR status @ -No What co-morbidities impacted this encounter? (DM, HTN, Smoking, COPD, CAD, Cancer, CVA, ARF, Chemo, Hep., AIDS, mental health diagnosis, sleep apnea, morbid obesity)? @ -None Was patient admitted / discharged? Hospital course, mention meds given and route, prescriptions, significant lab abnormalities, going to OR and other pertinent info. @ -Patient care transferred to me from Anisa Choe PA-C. Patient initially provided IV normal saline, Zofran and Protonix. Lab work shows WBC 9.12, hemogl obin 12.1, BUN 24, glucose 150. Kidney function, LFT, amylase/lipase unremarkable. UA shows mild ketonuria without indication of UTI. AP CT shows nondilated mid to distal small bowel indicating nonspecific regional enteritis. Distal colonic diverticulosis without diverticulitis and chronic circu mferential wall thickening of the urinary bladder also noted. Advised bowel rest for patient along with NUHA diet and suzi tea/maria ines for nausea. Patient discharged with Zofran starter pack and additional Zofran sent to patient's pharmacy. Discussed patient with Dr. Negrete. Undiagnosed new problem with uncertain prognosis? @ -No Drug Therapy requiring intensive monitoring for toxicity (Heparin, Nitro, Insulin, Cardizem)? @ -No Were any procedures done? @ -No Diagnosis/symptom? @ -Enteritis Acute, or Chronic, or Acute on Chronic? @ -Acute Uncomplicated (without systemic symptoms) or Complicated (systemic symptoms)? @ -Complicated Side effects of treatment? @ -No Exacerbation, Progression, or Severe Exacerbation? @ -No Poses a threat to life or bodily function? How? (Chest pain, [place], [place], pneumonia, PE, COPD, DKA, ARF, appy, cholecystitis, CVA, Diverticulitis, Homicidal, Suici boyd, threat to staff... and all critical care pts) @ -No (Iain Bradley) - Lab Data Lab Results 05/15/25 05/15/25 05/15/25 Range/Units 21:44 21:44 21:44 WBC 9.12 (4.50-10.00) 10*3/uL RBC 3.78 L (4.40-5.60) 10*6/uL Hgb 12.1 L (13.0-17.0) g/dL Hct 35.2 L (39.6-50.0) % MCV 93.1 (80.0-97.0) fL MCH 32.0 (27.0-32.0) pg MCHC 34.4 (32.0-37.0) g/dL Plt Count 193 (140-440) 10*3/uL MPV 10.8 (9.5-12.2) fL Immature Gran % (Auto) 0.3 % Neutrophils % 85.5 % Lymphocytes % 9.0 % Monocytes % 5.0 % Eosinophils % 0.1 % Basophils % 0.1 % Immature Gran # 0.03 (0.00-0.04) 10*3/uL Neutrophils # 7.79 H (1.80-7.70) 10*3/uL Lymphocytes # 0.82 L (0.90-5.00) 10*3/uL Monocytes # 0.46 (0.20-1.00) 10*3/uL Eosinophils # 0.01 L (0.04-0.35) 10*3/uL Basophils # 0.01 (0.00-0.10) 10*3/uL Sodium 137 (137-145) mmol/L Potassium 3.8 (3.5-5.1) mmol/L Chloride 108 H (98-107) mmol/L Carbon Dioxide 22 (22-30) mmol/L Anion Gap 7 mmol/L BUN 24 H (9-20) mg/dL Creatinine 0.79 (0.66-1.25) mg/dL Est GFR (CKD-EPI)AfAm >90 (>60 ml/min/1.73 sqM) Est GFR (CKD-EPI)NonAf 84 (>60 ml/min/1.73 sqM) Glucose 150 H (74-99) mg/dL Plasma Lactic Acid Yash 0.8 (0.7-2.0) mmol/L Calcium 9.3 (8.4-10.2) mg/dL Total Bilirubin 0.4 (0.2-1.3) mg/dL AST 31 (17-59) U/L ALT 30 (4-49) U/L Alkaline Phosphatase 65 (38-126) U/L Total Protein 6.8 (6.3-8.2) g/dL Albumin 4.3 (3.5-5.0) g/dL Amylase 64 (30-110) U/L Lipase 46 (23-300) U/L Urine Color Urine Appearance (Clear) Urine pH (5.0-8.0) Ur Specific Eden (1.001-1.035) Urine Protein (Negative) Urine Glucose (UA) (Negative) Urine Ketones (Negative) Urine Blood (Negative) Urine Nitrite (Negative) Urine Bilirubin (Negative) Urine Urobilinogen (<2.0) mg/dL Ur Leukocyte Esterase (Negative) 05/15/25 Range/Units 22:30 WBC (4.50-10.00) 10*3/uL RBC (4.40-5.60) 10*6/uL Hgb (13.0-17.0) g/dL Hct (39.6-50.0) % MCV (80.0-97.0) fL MCH (27.0-32.0) pg MCHC (32.0-37.0) g/dL Plt Count (140-440) 10*3/uL MPV (9.5-12.2) fL Immature Gran % (Auto) % Neutrophils % % Lymphocytes % % Monocytes % % Eosinophils % % Basophils % % Immature Gran # (0.00-0.04) 10*3/uL Neutrophils # (1.80-7.70) 10*3/uL Lymphocytes # (0.90-5.00) 10*3/uL Monocytes # (0.20-1.00) 10*3/uL Eosinophils # (0.04-0.35) 10*3/uL Basophils # (0.00-0.10) 10*3/uL Sodium (137-145) mmol/L Potassium (3.5-5.1) mmol/L Chloride (98-107) mmol/L Carbon Dioxide (22-30) mmol/L Anion Gap mmol/L BUN (9-20) mg/dL Creatinine (0.66-1.25) mg/dL Est GFR (CKD-EPI)AfAm (>60 ml/min/1.73 sqM) Est GFR (CKD-EPI)NonAf (>60 ml/min/1.73 sqM) Glucose (74-99) mg/dL Plasma Lactic Acid Yash (0.7-2.0) mmol/L Calcium (8.4-10.2) mg/dL Total Bilirubin (0.2-1.3) mg/dL AST (17-59) U/L ALT (4-49) U/L Alkaline Phosphatase (38-126) U/L Total Protein (6.3-8.2) g/dL Albumin (3.5-5.0) g/dL Amylase (30-110) U/L Lipase (23-300) U/L Urine Color Colorless Urine Appearance Clear (Clear) Urine pH 6.0 (5.0-8.0) Ur Specific Eden 1.019 (1.001-1.035) Urine Protein Negative (Negative) Urine Glucose (UA) Negative (Negative) Urine Ketones 1+ H (Negative) Urine Blood Negative (Negative) Urine Nitrite Negative (Negative) Urine Bilirubin Negative (Negative) Urine Urobilinogen <2.0 (<2.0) mg/dL Ur Leukocyte Esterase Negative (Negative) Disposition <Anisa Choe - Last Filed: 05/15/25 22:58> Is patient prescribed a controlled substance at d/c from ED?: No Time of Disposition: 00:07 <Iain Bradley - Last Filed: 05/16/25 00:13> Clinical Impression: Enteritis Disposition: HOME SELF-CARE Condition: Fair Instructions (If sedation given, give patient instructions): Acute Nausea and Vomiting (ED), Enteritis (ED) Additional Instructions: Bowel rest recommended for the next 24 hours. Small portions of bland food including bananas, rice, applesauce, tea, toast recommended. Suzi tea/maria ines for nausea. Follow-up with PCP for any ongoing symptoms. Prescriptions: Ondansetron Odt [Zofran Odt] 4 mg PO Q8HR PRN #10 tab PRN Reason: Nausea Referrals: Delonte Corbin MD [Primary Care Provider] - 1-2 days
[2025-05-15 21:58] LABS: Basophils # (A) 0.01 10*3/uL (0.00-0.10); Basophils % (A) 0.1 %; Eosinophils # (A) 0.01 10*3/uL (0.04-0.35); Eosinophils % (A) 0.1 %; HCT 35.2 % (39.6-50.0); HGB 12.1 g/dL (13.0-17.0); Lymphocytes # (A) 0.82 10*3/uL (0.90-5.00); MCHC 34.4 g/dL (32.0-37.0); MCV 93.1 fL (80.0-97.0); Mean Platelet Volume 10.8 fL (9.5-12.2); Monocytes # (A) 0.46 10*3/uL (0.20-1.00); Neutrophils # (A) 7.79 10*3/uL (1.80-7.70); Neutrophils % (A) 85.5 %; Platelet Count 193 10*3/uL (140-440); RBC 3.78 10*6/uL (4.40-5.60); RDW 11.9 % (11.5-14.5); WBC 9.12 10*3/uL (4.50-10.00)
[2025-05-15] MEDS: SODIUM CHLORIDE 0.9% 1,000 ML IV ONE (22:00)
[2025-05-15] MEDS: ONDANSETRON 4 MG/2 ML VIAL IVP STA (22:01)
[2025-05-15] MEDS: PANTOPRAZOLE 40 MG/10 ML VIAL IVP STA (22:02)
[2025-05-15 22:24] LABS: ALT 30 U/L (4-49); AST 31 U/L (17-59); African American GFR (CKD) >90 (>60 ml/min/1.73 sqM); Albumin 4.3 g/dL (3.5-5.0); Alkaline Phosphatase 65 U/L (38-126); Amylase 64 U/L (30-110); Anion Gap 7 mmol/L; Blood Urea Nitrogen 24 mg/dL (9-20); Calcium 9.3 mg/dL (8.4-10.2); Carbon Dioxide 22 mmol/L (22-30); Chloride 108 mmol/L (98-107); Glucose 150 mg/dL (74-99); Lipase 46 U/L (23-300); Non-African American GFR(CKD) 84 (>60 ml/min/1.73 sqM); Potassium 3.8 mmol/L (3.5-5.1); Sodium 137 mmol/L (137-145); Total Bilirubin 0.4 mg/dL (0.2-1.3); Total Protein 6.8 g/dL (6.3-8.2)
[2025-05-15 22:48] LABS: Appearance,Urine Clear (Clear); Bilirubin,Urine Negative (Negative); Blood,Urine Negative (Negative); Color,Urine Colorless; Glucose,Urine (UA) Negative (Negative); Ketones,Urine 1+ (Negative); Leukocyte Esterase,Urine Negative (Negative); Nitrite,Urine Negative (Negative); Protein,Urine Negative (Negative); Specific Gravity,Urine 1.019 (1.001-1.035); Urobilinogen,Urine <2.0 mg/dL (<2.0)
[2025-05-15 23:59] VITALS: BP 148/79; PULSE 69; RESP 19; TEMP 98.3
--- NOTE | 2025-05-16 00:02 | CT ---
EXAMINATION TYPE: CT abdomen pelvis w con CT DLP: 840.5 mGycm, Automated exposure control for dose reduction was used. DATE OF EXAM: 05/15/2025 10:47 PM COMPARISON: CT abdomen pelvis 01/11/2025, 06/18/2024, abdominal ultrasound 08/25/2024 CLINICAL INDICATION:Male, 84 years old with history of abd pain; TECHNIQUE: Standard CT of the abdomen and pelvis following the administration of 100 cc of Isovue 3 00 IV contrast material. Coronal and sagittal reformats were performed. FINDINGS: LOWER CHEST: Mild posterior dependent subsegmental atelectasis is noted. Cardiomegaly. No pericardial effusion. ABDOMEN LIVER: Unremarkable GALLBLADDER AND BILE DUCTS: Unremarkable. PANCREAS: Unremarkable. SPLEEN: Unremarkable. ADRENAL GLANDS: Unremarkable. KIDNEYS AND URETERS: No evidence of hydronephrosis or renal calculus. The kidneys enhance symmetrical ly. Left mid kidney 2.5 cm simple cyst. No follow-up recommended. Contrast is demonstrated within bot h renal collecting systems and proximal ureters. PELVIS BLADDER: Chronic circumferential wall thickening of the urinary bladder. REPRODUCTIVE: Coarse calcifications of the prostate gland are identified. ABDOMEN & PELVIS STOMACH AND BOWEL: Small hiatal hernia. Couple of duodenal diverticula. Distal colonic diverticulosis without evidence for acute diverticulitis. Redundant sigmoid colon. The appendix is within normal li mits. Fluid-filled prominent but nondilated mid to distal small bowel. Liquid stool within the right colon. No evidence of bowel obstruction. PERITONEUM: No evidence of pneumoperitoneum. Trace ascites within the anterior lower abdomen. VASCULATURE: Mild to moderate atherosclerotic calcifications are present throughout the abdominal aor ta and its branches. No evidence of aortic aneurysm. MUSCULOSKELETAL: No acute osseous abnormalities. Grade 1 anterolisthesis of L2 on L3 without evidence of pars defect. Multilevel anterior osteophytosis of the lower thoracic spine. Multilevel degenerati ve disc disease of the thoracolumbar spine. LYMPH NODES: No evidence for lymphadenopathy. SOFT TISSUE/ABDOMINAL WALL: Small fat filled bilateral inguinal hernias. IMPRESSION: 1. Fluid-filled nondilated mid to distal small bowel with additional liquid stool within the ascendi ng colon. Findings may be seen with a nonspecific regional enteritis. 2. Distal colonic diverticulosis without definitive evidence for acute diverticulitis. 3. Chronic circumferential wall thickening of the urinary bladder. Correlate clinically for cystitis with urinalysis. [facility], , 05/16/2025 12:00 AM
[2025-05-16] MEDS: ONDANSETRON 4 MG ODT STARTER PACK 2 TAB BTL PO STA (00:41)
== END 2025-05-16 01:26 | disposition home or self-care (01) ==
LOC: EC 21:09
DX: K52.9 Noninfective gastroenteritis and colitis, unspecified (principal); Z87.891 Personal history of nicotine dependence
CPT/HCPCS: 36415; 93005; 80053; 82150; 83605; 83690; 85025; 81003; 74177; 99284; 96374; 96375; 96361 ×2; J2405; Q9967; J2470

== ENCOUNTER → 2025-06-06 | Outpatient (CLI) | payer MEDICARE | END | disposition home or self-care (01) | LOC: LABWHC1 12:06 | PROVIDERS: ATTEND Urology | DX: C61 Malignant neoplasm of prostate (principal) | CPT/HCPCS: 36415; 84153 ==